=== PATIENT | female | born 1955 | race Caucasian/White ===

== ENCOUNTER → 2022-10-11 | Outpatient (CLI) | payer MEDICARE ==
--- NOTE | 2022-10-13 07:42 | US ---
EXAMINATION TYPE: US thyroid st tissue head/neck DATE OF EXAM: 10/11/2022 COMPARISON: NONE CLINICAL INDICATION: Female, 67 years old with history of E04.1 NONTOXIC SINGLE THYROID; known thyroi d nodules GLAND SIZE: Right Lobe: 4.7x1.6x1.8 cm Overall Parenchyma: homogenous Left Lobe: 4.5x1.7x1.5 cm Overall Parenchyma: homogeneous Isthmus Thickness: 0.4 cm NODULES RIGHT: # of nodules measured on right: 1 1. 2.6 X 2.1 x 1.4 cm, lower mid, solid or almost completely solid, hypoechoic nodule, which is wid er than tall, with smooth margins, without echogenic foci. Prior size: 4.0 x 2.6 x 3.9 cm LEFT: # of nodules measured on left: 1 1. 2.3 X 1.6 x 2.0 cm, lower mid, solid or almost completely solid, isoechoic nodule, which is wide r than tall, with smooth margins, without echogenic foci. Prior size: 1.5 x 1.1 x 1.1 cm several other subcentimeter areas also seen ISTHMUS: # of nodules measured in the isthmus: 0 Bilateral neck scanned, no evidence of lymphadenopathy. IMPRESSION: Previously sampled thyroid nodules are redemonstrated. Enlarging left thyroid nodule. Consider rebiop sy.
== END | disposition home or self-care (01) ==
LOC: RADUSWWP 15:16
PROVIDERS: ATTEND Family Medicine
DX: E04.2 Nontoxic multinodular goiter (principal)
CPT/HCPCS: 76536

== ENCOUNTER → 2023-01-13 | Outpatient (CLI) | payer MEDICARE ==
[2023-01-13 11:08] LABS: African American GFR (CKD) 62 (>60 ml/min/1.73 sqM); Blood Urea Nitrogen 22 mg/dL (7-17); Non-African American GFR(CKD) 54 (>60 ml/min/1.73 sqM)
--- NOTE | 2023-01-13 11:57 | CT ---
EXAMINATION TYPE: CT abdomen wo/w con DATE OF EXAM: 01/13/2023 COMPARISON: 10/29/2020 HISTORY: cyst on kidney CT DLP: 2569.2 mGycm CONTRAST: CT scan of the abdomen and pelvis is performed with Oral Contrast and with IV Contrast, patient injec teresa with 100 mL of Isovue 300. FINDINGS: LUNG BASES-: No visible nodule. No infiltrate. LIVER/GB: Gallbladder surgically absent. No space occupying hepatic lesion. Biliary tree is of nor mal caliber. PANCREAS: No inflammation. No distinct mass. SPLEEN: No splenic enlargement. No lesion seen. ADRENALS: Stable left adrenal nodule measuring 2.7 cm versus 2.7 cm previously likely reflects adenom a. KIDNEYS/BLADDER: No hydronephrosis. No nephrolithiasis. Exophytic cyst midpole right kidney measure s 6 cm. No solid renal mass identified of the right kidney or the left kidney. Additional cyst lower pole left kidney measuring 2.9 cm. Urinary bladder grossly unremarkable. BOWEL: Visualized bowel loops are grossly unremarkable. LYMPH NODES: No greater than 1cm abdominal or pelvic lymph nodes are appreciated. AORTA: No significant abnormality. OSSEOUS STRUCTURES: No significant abnormality is seen. OTHER: No significant additional abnormality is seen. IMPRESSION: 1. Bilateral simple renal cysts. No solid renal lesions detected. 2. Left adrenal adenoma.
== END | disposition home or self-care (01) ==
LOC: RADCTMAIN 10:16
PROVIDERS: ATTEND Family Medicine
DX: N28.1 Cyst of kidney, acquired (principal); D35.02 Benign neoplasm of left adrenal gland
CPT/HCPCS: 82565; 84520; 74170; 36415; Q9967

== ENCOUNTER → 2023-11-02 | Outpatient (CLI) | payer MEDICARE | END | disposition home or self-care (01) | LOC: LABPAT 12:40 | PROVIDERS: ATTEND Orthopaedic Surgery | DX: Z01.812 Encounter for preprocedural laboratory examination (principal); Z22.322 Carrier or suspected carrier of Methicillin resistant Staphylococcus aureus; M50.10 Cervical disc disorder with radiculopathy, unspecified cervical region | CPT/HCPCS: 86850; 86900; 86901; 87070 ==

== ENCOUNTER 2023-11-08 05:41 | Day surgery (SDC) | payer MEDICARE ==
[2023-11-04 10:01] VITALS: BMI 32.8
--- NOTE | 2023-11-07 17:20 | P.HPOR ---
History of Present Illness H&P Date: 11/02/23 .D:Date: 11/02/23 : 09:05am .T:Title: [facility] Age: 68 year Height: 5'11" Weight: 260 lbs BP:128/78 BMI: 36.26 kg/m2 Occupation: Retired VAS: 7 IMPRESSION: It was my pleasure to have seen and examinedPatricia.I reviewed the patient's clinical syndrome, physical findings, and imaging studies during the appointment today. It is my impression that the patient has a diagnosis of. 1. C4-5, C5-6, C6-7 herniated nucleus pulposus with spondylosis and stenosis 2. Bilateral upper extremity radiculopathy 3. Bilateral upper extremity weakness 4. Cervicalgia Spine Surgery Risk Review Ms. Pola Carrion is presenting for evaluation of neck and bilateral upper extremity pain, bilateral upper extremity numbness, tingling, and weakness. It was my pleasure to have seen and examined Ms. Pola Carrion. In our visit today we have had a chance to go over subjective complaints, physical examination findings and treatments including the natural course history without intervention and various interventional options. Imaging demonstrates: STUDIES FINDINGS XRAY Date: 08/29/2023 Location: [facility] Region: Cervical Views: AP/LAT/FLEX/EXT/OBL Images reviwed with patient -C4-7 Spondylosis. C4-5 Grade I spondylolisthesis -Severe disc collapse C5-7 -Osteophytosis C5-7 -Foraminal stenosis C5-7 -Flattened CL due to collapse -C0-1 and C1-2 stable. -No fracture or lesions CT Date: 08/05/2022 Location: [facility] Region:Cervical Contrast: N Images reviewed with pt. Similar findings to MRI below. -Severe spondylosis changes C4-7 -Severe central and b/l foraminal stenosis C4-7 due to HNP, begining OPLL and PLL thickening -Severe disc collapse C4-5, C5-6 and C6-7 along with C7-T1 -Flattened CL due to collapse -No fractures noted, no lesions. -Grade I spondylolisthesis, unstable C4-5 MRI Date: 06/09/2023 Location: [facility] Region:Cervical Contrast: N Images reviewed with pt. -Severe spondylosis changes C4-7 -Severe central and b/l foraminal stenosis C4-7 due to HNP, begining OPLL and PLL thickening -Severe disc collapse C4-5, C5-6 and C6-7 along with C7-T1 -Flattened CL due to collapse -No fractures noted, no lesions. -Grade I spondylolisthesis, unstable C4-5 On physical exam, Ms. Pola Carrion demonstrates: A burning, ache-like pain across the neck down into te bilateral upper extremities. She states these symptoms ave been ongoing for several months to a years, without any known injury or trauma to indicate an exact date of onset. She states her upper extremity pain is associated with numbness bilaterally. She notes progressive bilateral arm weakness. She states her symptoms worsen when ambulating the arms above the head or with any quick movements of the neck. She reports experiencing severe sleep disturbances related to her ongoing pain and associated symptoms. She states she only gets about 2 hours of sleep per night due to the severity of her current symptoms. She notes her symptoms have become debilitating. I have explained to the patient that as their condition progresses it will cause further neurological deficits and eventual paralysis. Based on the patients imaging, physical exam, and the rapid progression and disabling nature of their symptoms, at this time I recommend surgery in the form of a: C4-7 ACDF. I discussed the risk and benefits of this procedure at length with Ms. Pola Carrion. The patient agreed to considered pursuing the procedure abovementioned. Prior to surgery, she should follow up with her PCP (Cardio, ID, IM etc) for clearance. Questions were invited and answered, and the patient wishes to proceed as outlined below. Currently, I am recommendin.C4-7 ANTERIOR CERVICAL DISCECTOMY AND FUSION 2.Review of surgical risks and benefits as well as an educational packet on the proposed surgical procedure. Risks: All surgical procedures come with inherent risks, including those related to positioning, anesthesia, intraoperative findings, and postoperative complications. It is important to understand that surgery does not come with any guarantee of a successful outcome as complications and adverse events are always possible. The patient was given a handout in office today discussing the surgical procedure and risks associated with the intervention, both of which were discussed with the patient. These risks include but are not limited to the following: * Experiencing same, different or even worse symptoms in back, neck, arms, or legs compared to before surgery. Requiring further surgery or other forms of treatment presently or at some time in the future at same or other levels of the intended spine surgery. On an extreme but fortunately relatively rare basis severe complication such as blindness, stroke, heart attack, temporary and/or permanent nerve injury, paralysis, coma, or may occur, sometimes without known explanation. Surgical complications may include but are not limited to risk of infection, fluid accumulation in the surgical dissection site, including a seroma or hematoma, that requires additional surgery, wound drainage, bleeding, new numbness or weakness, vision changes/loss, spinal fluid leakage, non-healing and/or infected incision, headaches, difficulty or inability to swallow, hoarseness, hemopneumothorax, pneumothorax, impotence, retrograde ejaculation, vaginal dryness; injury to nerves, spinal cord, blood vessels, lymphatics or other vital organs (i.e., bowel injury, injury to the great vessels); heteroto pic bone formation; complications related to the hardware such as screws, rods, cages including misplaced hardware, device failure, instrumentation at the wrong spine level, hardware fracture/breakage, or hardware loosening; vertebral failure of the spinal column above or below the newly placed hardware; retained surgical instrumentations or devices and the need for further surgery. * Medical risks of the planned spine surgery include but are not limited to generalized Infections to the whole body or local areas outside of the surgical site (sepsis), heart attack, bleeding, anaphylaxis, meningitis, seizure, epilepsy, hearing loss, burn morales, laceration of the head or other areas of the body, bruising, hypersensitivity of the skin, bladder over distension; allergic reaction; shoulder injury related to positioning; fat, blood and air clots to other areas of the body like heart, lungs, brain; failure of internal organs such as lungs, kidneys, liver and excessive bleeding. If blood transfusions are necessary, note that transfusions may cause intolerance reactions such as anaphylaxis or other complex reactions. Despite best efforts, the results of spine surgery might not heal in terms of bone, soft tissues such as skin, fascia, ligaments, and joints. Additionally, in order to achieve best possible results, spine surgery may be carried out beyond the initially planned levels and involve decompression, fusion including insertion of hardware at levels other than the original intended area of surgical interest change some portions of the procedure in order to ensure the best possible outcomes. With spine surgery and spinal fusion, there are different off label uses of instrumentation (devices, implants and hardware) as well as biological substances (bone morphogenic proteins, demineralized bone matrix) as well as using extra bone from allograft sources (i.e. cadaver bone) or autograft (iliac crest bone, ribs, or the spine itself). The patient has been given information about these practices and their inherent risks and benefits. [facility] is an educational center that serves as a training facility for neurosurgical and orthopedic AUTHORIZATION MANAGER and Nursing students. Physician assistants are medically trained surgical providers who function in the outpatient, inpatient, and operating room setting under the direct supervision of the attending surgeon. [facility] has multiple operating rooms with single and overlapping rooms running daily. They currently function under the required guidelines as produced by the [facility] Finance Committee with regards to the overlapping rooms and will continue to comply with changes to this policy as they occur. The requirements include and are complied with as follows: (1) the critical portions of the overlapping rooms will not occur at the same time, (2) the attending physician will be physically present during the critical portions of the procedure and immediately available during the entire case, and (3) a back-up attending is designated should the primary attending not be immediately available. The patient has had a chance to review all the listed information, has been given print outs detailing this information, and has had all his/her questions answered to their satisfaction. It was my pleasure to have seen and examined Ms. Pola Carrion. In our visit today we have had a chance to go over my understanding of our patient's current condition, the natural course history without intervention and various interventional options. Questions were invited and answered, and the patient wishes to proceed as outlined above. I have seen and examined the patient for 25 minutes and we have spent more than 50% of the time in repeat and detailed counseling about the patient's condition, its natural course history with out and as much as can be predicted with surgery and re-review of various surgical treatment options. In conclusion, Ms. Pola Carrion requested we proceed with the above suggested surgery and are willing to accept risks and limitations of the suggested surgery as nature of the disease process and our best attempts at treatment for the condition. FOLLOW UP: Post Procedure PATIENT EDUCATION: Medications Reviewed: YES In our visit today Ms. Pola Carrion and I have had a chance to go over my understanding of the patient's current condition, the natural course history without intervention and various interventional options. Questions were invited and answered, and the patient wishes to proceed as outlined above. I will be sure to keep you updated after Ms. Pola Carrion returns here for further follow-up. Thank you again for your referral. Please do not hesitate to contact me if you have any further questions. Signed and authenticated by: Luc Barriga [facility] [address] [facility], [address] [address] . This message is confidential, intended only for the named recipient(s) and may contain information that is privileged or exempt from disclosure under applica ble law. If you are not the intended recipient(s), you are notified that the dissemination, distribution or copying of this information is prohibited. If you received this message in error, please notify the sender then delete this message. Past Medical History Past Medical History: COPD, Diabetes Mellitus, Fibromyalgia, Hypertension, Osteoarthritis (OA), Thyroid Disorder Additional Past Medical History / Comment(s): Beginnings of Rheumatoid Arthritis. Thyroid nodules. No issues with COPD, quit smoking 27 yrs ago. History of Any Multi-Drug Resistant Organisms: None Reported Past Surgical History: Cholecystectomy, Orthopedic Surgery, Tubal Ligation Additional Past Surgical History / Comment(s): Attempted tubal ligation reversal, colonoscopy, thyroid biopsy, left foot surgery. Past Anesthesia/Blood Transfusion Reactions: No Reported Reaction Additional Past Anesthesia/Blood Transfusion Reaction / Comment(s): Pt has never received blood. Smoking Status: Former smoker - Past Family History Sister(s) Family Medical History: Cancer Additional Family Medical History / Comment(s): Kidney cancer in both kidneys, thyroid cancer. Another sister had breast cancer. Father Family Medical History: Diabetes Mellitus Additional Family Medical History / Comment(s): Heart problems, . Mother Additional Family Medical History / Comment(s): Mother of aortic aneurysm rupture at age 55 yrs. Medications and Allergies Home Medications Medication Instructions Recorded Confirmed Type Lisinopril-Hctz 20-25 mg 1 tab PO HS 01/15/15 11/04/23 History [Zestoretic 20-25] Aspirin [Adult Low Dose Aspirin EC] 81 mg PO DAILY 11/04/23 11/04/23 History Biotin 10 Mg 20 mg PO DAILY 11/04/23 11/04/23 History Gabapentin 600 mg PO BID 11/04/23 11/04/23 History Insulin NPH Hum/Reg Insulin Hm 0 unit SQ BID PRN MDD To scale 11/04/23 11/04/23 History [NovoLIN 70-30 100 Unit/ml Vial] Otc Allergy Pill 1 tab PO DAILY PRN 11/04/23 11/04/23 History Tirzepatide [Mounjaro] 7.5 mg SQ FR 11/04/23 11/04/23 History Allergies Allergy/AdvReac Type Severity Reaction Status Date / Time No Known Allergies Allergy Verified 11/04/23 09:31 Physical Examination Osteopathic Statement: *. No significant issues noted on an osteopathic structural exam other than those noted in the History and Physical/Consult. Assessment and Plan (1) Herniated nucleus pulposus, C4-5 Status: Acute Code(s): M50.221 - OTHER CERVICAL DISC DISPLACEMENT AT C4-C5 LEVEL SNOMED Code(s): 48590736 (2) Herniated nucleus pulposus, C5-6 Status: Acute Code(s): M50.222 - OTHER CERVICAL DISC DISPLACEMENT AT C5-C6 LEVEL SNOMED Code(s): 24192951 (3) Herniated nucleus pulposus, C6-7 Status: Acute Code(s): M50.223 - OTHER CERVICAL DISC DISPLACEMENT AT C6-C7 LEVEL SNOMED Code(s): 00275431 (4) Cervical spondylosis with myelopathy and radiculopathy Status: Acute Code(s): M47.12 - OTHER SPONDYLOSIS WITH MYELOPATHY, CERVICAL RE GION; M47.22 - OTHER SPONDYLOSIS WITH RADICULOPATHY, CERVICAL REGION SNOMED Code(s): 433270725 (5) Cervical stenosis of spinal canal Status: Acute Code(s): M48.02 - SPINAL STENOSIS, CERVICAL REGION SNOMED Code(s): 65134680
[~2023-11-08 05:41] MED LIST: ACETAMINOPHEN TAB 500 MG TAB PO PRN; GABAPENTIN 300 MG CAP PO PRN; TRANEXAMIC 1,000 MG/100ML-NACL 1,000 MG in SALINE 1 100ML.BAG IVPB PRN
[2023-11-08 06:57] LABS: Glucose,Whole Blood 110 mg/dL (70-110)
[2023-11-08] MEDS ORDERED: MIDAZOLAM 2 MG/2 ML VIAL IV PRN (07:00)
[2023-11-08] MEDS: LACTATED RINGERS 1,000 ML IV SCH (07:02)
[2023-11-08] MEDS: IV FLUID CONTINUATION 1,000 ML IV ONE ×3 (07:04→14:17)
[2023-11-08] MEDS: ONDANSETRON 4 MG/2 ML VIAL IVP PRN (07:07)
[2023-11-08] MEDS ORDERED: PHENYLEPHRINE-0.9% NACL SYG 1,000 MCG/10 ML SYRINGE ONE (07:28)
[2023-11-08] MEDS ORDERED: LIDOCAINE 1% INJ 10MG/ML (20 ML MDV) ONE (07:28)
[2023-11-08] MEDS ORDERED: NEOSTIGMINE 1 MG/ML 10 ML VIAL ONE (07:28)
[2023-11-08] MEDS ORDERED: ROCURONIUM 10 MG/ML (5 ML VIAL) IV ONE (07:28)
[2023-11-08] MEDS ORDERED: PHENYLEPHRINE 10 MG/ML VIAL ONE (07:28)
[2023-11-08] MEDS ORDERED: PROPOFOL 10 MG/ML 20 ML VIAL IV ONE (07:28)
[2023-11-08] MEDS ORDERED: MIDAZOLAM 2 MG/2 ML VIAL ONE (07:28)
[2023-11-08] MEDS ORDERED: HYDROmorphone (PF) 1 MG/ML ONE (07:28)
[2023-11-08] MEDS ORDERED: fentaNYL (PF) 50 MCG/ML 2 ML AMP ONE (07:28)
[2023-11-08] MEDS ORDERED: GLYCOPYRROLATE 0.2 MG/ML 2 ML VIAL ONE (07:28)
[2023-11-08] MEDS ORDERED: SUCCINYLCHOLINE CHLORIDE 200 MG/10 ML VIAL IV ONE (07:28)
[2023-11-08] MEDS ORDERED: KETAMINE HCL IN 0.9 % NACL 50 MG/5 ML SYRINGE ONE (07:28)
[2023-11-08] MEDS ORDERED: TRANEXAMIC 1,000 MG/100ML-NACL PREMIX BAG ONE (07:28)
[2023-11-08] MEDS: THROMBIN (BOVINE) 5,000 UNIT VIAL TOPICAL ONE (09:00)
--- NOTE | 2023-11-08 10:39 | P.OP ---
Date of Procedure: 11/08/23 Preoperative Diagnosis: Current Active Problems Herniated nucleus pulposus, C4-5 (Acute) Herniated nucleus pulposus, C5-6 (Acute) Herniated nucleus pulposus, C6-7 (Acute) Cervical spondylosis with myelopathy and radiculopathy (Acute) Cervical stenosis of spinal canal (Acute) Upper extremity weakness (Acute) Diabetes (Chronic) Postoperative Diagnosis: Current Active Problems Herniated nucleus pulposus, C4-5 (Acute) Herniated nucleus pulposus, C5-6 (Acute) Herniated nucleus pulposus, C6-7 (Acute) Cervical spondylosis with myelopathy and radiculopathy (Acute) Cervical stenosis of spinal canal (Acute) Upper extremity weakness (Acute) Diabetes (Chronic) Procedure(s) Performed: -C4-5 ANTERIOR CERVICAL ARTHRODESIS - C5-6 ANTERIOR CERVICAL ARTHRODESIS -C6-7 ANTERIOR CERVICAL ARTHRODESIS -APPLICATION ANTERIOR INSTRUMENTATION, PLATE SCREWS 4 SEGMENT -INSERTION OF BIOMECHANICAL DEVICE, CAGES, C4-5, C5-6, C6-7 USE OF IONM USE OF IO MICROSCOPE Implants: -GURDEEP CASCADIA CAGES 8MM, 9MM, 9,, 7 DEG, LARGE -GURDEEP OZARK PLATE AND SCREWS, 16MM, 66MM -MAGNATOS, AUTOGRAFT Anesthesia: GETA Surgeon: Luc Lr Profile Shaper Operator #1: Polly Barton (WAS PRESENT AND ASSISTED WITH ALL ASPECTS OF THE CASE FROM POSITION TO DRESSING PLACEMENT) Estimated Blood Loss (ml): 50 IV fluids (ml): 1,200 Urine output (ml): 550 Pathology: none sent Condition: stable Disposition: PACU Indications for Procedure: Ms. Pola Carrion is presenting for evaluation of neck and bilateral upper extremity pain, bilateral upper extremity numbness, tingling, and weakness. It was my pleasure to have seen and examined Ms. Pola Carrion. In our visit today we have had a chance to go over subjective complaints, physical examination findings and treatments including the natural course history without intervention and various interventional options. Imaging demonstrates: STUDIES FINDINGS XRAY Date: 08/29/2023 Location: [facility] Region: Cervical Views: AP/LAT/FLEX/EXT/OBL Images reviwed with patient -C4-7 Spondylosis. C4-5 Grade I spondylolisthesis -Severe disc collapse C5-7 -Osteophytosis C5-7 -Foraminal stenosis C5-7 -Flattened CL due to collapse -C0-1 and C1-2 stable. -No fracture or lesions CT Date: 08/05/2022 Location: [facility] Region:Cervical Contrast: N Images reviewed with pt. Similar findings to MRI below. -Severe spondylosis changes C4-7 -Severe central and b/l foraminal stenosis C4-7 due to HNP, begining OPLL and PLL thickening -Severe disc collapse C4-5, C5-6 and C6-7 along with C7-T1 -Flattened CL due to collapse -No fractures noted, no lesions. -Grade I spondylolisthesis, unstable C4-5 MRI Date: 06/09/2023 Location: [facility] Region:Cervical Contrast: N Images reviewed with pt. -Severe spondylosis changes C4-7 -Severe central and b/l foraminal stenosis C4-7 due to HNP, begining OPLL and PLL thickening -Severe disc collapse C4-5, C5-6 and C6-7 along with C7-T1 -Flattened CL due to collapse -No fractures noted, no lesions. -Grade I spondylolisthesis, unstable C4-5 On physical exam, Ms. Pola Carrion demonstrates: A burning, ache-like pain across the neck down into te bilateral upper extremities. She states these symptoms ave been ongoing for several months to a years, without any known injury or trauma to indicate an exact date of onset. She states her upper extremity pain is associated with numbness bilaterally. She notes progressive bilateral arm weakness. She states her symptoms worsen when ambulating the arms above the head or with any quick movements of the neck. She reports experiencing severe sleep disturbances related to her ongoing pain and associated symptoms. She states she only gets about 2 hours of sleep per night due to the severity of her current symptoms. She notes her symptoms have become debilitating. I have explained to the patient that as their condition progresses it will cause further neurological deficits and eventual paralysis. Based on the patients [place] ging, physical exam, and the rapid progression and disabling nature of their symptoms, at this time I recommend surgery in the form of a: C4-7 ACDF. I discussed the risk and benefits of this procedure at length with Ms. Pola Carrion. The patient agreed to considered pursuing the procedure abovementioned. Prior to surgery, she should follow up with her PCP (Cardio, ID, IM etc) for clearance. Questions were invited and answered, and the patient wishes to proceed as outlined below. Currently, I am recommendin.C4-7 ANTERIOR CERVICAL DISCECTOMY AND FUSION Description of Procedure: C4-7 ACDF plate screws The patient was seen and examined in the preoperative area. All preoperative protocols were followed. Informed consent was obtained, risks and benefits of the procedure were discussed at length. Risks including bleeding infection damage to the surrounding tissue and risk of reoperation were discussed with the patient. Risk of anesthesia up to and including was discussed with the patient. These are outlined in the risk review. They were willing to accept these risks and all the risks of surgery. The patient was given a weight-based dose of antibiotics in the form of 2 g Ancef. The patient was seen and evaluated by the anesthesia team who deemed them fit for surgery. The site was marked, the patient was willing to proceed with the procedure. The patient was transferred to the operative suite by the Department of anesthesia. They were then drifted off to sleep by the department anesthesia and GETA was performed. The patient tolerated this well. Whitney catheter was placed by nursing staff, a-traumatically. Once confirmation of lines and ventilation the patient was transferred to a Supine Holden table very carefully. All bony prominences including wrists, elbows, axilla, chest, hips, and thighs, and feet were padded very well. Special attention was paid to the genitalia, and these were padded accordingly. SCDs were placed on bilateral lower extremities and were connected. Arms were well padded and placed at their side thumbs up. Once in position, again we confirmed good ventilation capabilities and that lines were running appropriately. The patients Cervical spine was then exposed. 1010s were placed outlining the incision site. Standard alcohol was used to clean the incision site and allowed to dry. C-arm was used to bio-mari the patient and confirm level for incision which was marked with a skin marker. Operative briefing was performed with all teams and everyone in agreement to proceed. The patient was then prepped and draped in a normal sterile fashion. Timeout was then performed, and all parties agreed with the procedure to be performed. Transverse skin incision was then made on the right side of the patient's neck 3 cm and dissection taken down to the platysma which was split transversely. Sub platysma flap was made, and interval identified between SCM and medial structures. Omohyoid was visualized and protected. Blunt dissection taken down to the anterior cervical fascia which was identified. Blunt probe was then placed and lateral image taken which confirmed levels for operation. These levels were then marked with a bovi. Subperiosteal dissection of the longissimus muscles were then done over these levels identifying uncovertebral joints bilaterally. Retractor was then placed deep to these muscles and held in place with a bed arm. Microscope was then brought in for visualization. Colrain pins were placed into C6 and C7 and gentle distraction taken out over the levels. Helen rongeur used to remove disc material. Operating microscope brought in for visualization. Complete discectomy performed at this level with curette, rongure and pituitary. High speed shaheen used to remove osteophytes anteriorly and posteriorly until PLL was identified. 6-0 up curette then used to identify the canal and ressect the PLL. 2-0 and 3-0 Kerrison used then to remove PLL and disc herniation and performed b/l foraminotomies. Once good decompression was accomplished, meticulous hemostasis was performed. Sizers were then placed under lateral fluoroscopy until the desired height and lordosis. Cage was then selected, packed with autograft and allograft and placed under lateral imaging. Once in good position it was tested and stable. Motors run before and after cage placement were stable. The wound was irrigated, and autograft placed lateral to the cage anteriorly for fusion. Colrain pin was then removed from C7 and placed into C5 and bone wax placed in their void. Gentle distraction taken out over C5-6 now. Complete discectomy done at C5-6 as described including decompression, b/l foraminotomies and PLL resection. Burring of endplates was minimal, osteophytes removed as described. Spacers were then sized and placed under lateral imaging. Cage selected, packed with graft and placed under lateral images. Once in position, meticulous hemostasis performed, and motors remained stable before and after cage placement. AP image confirmed good placement of cages. Wound was irrigated. Colrain pin was then removed from C6 and placed into C4. At C4-5 now, gentle distraction is taken out over the levels. Helen rongeur used to remove disc material.. Complete discectomy performed at this level with curette, rongure and pituitary. High speed shaheen used to remove osteophytes anteriorly and posteriorly until PLL was identified. 6-0 up curette then used to identify the canal and ressect the PLL. 2-0 and 3-0 Kerrison used then to remove PLL and disc herniation and performed b/l foraminotomies. Once good decompression was accomplished, meticulous hemostasis was performed. Sizers were then placed under lateral fluoroscopy until the desired height and lordosis. Cage was then selected, packed with autograft and allograft and placed under lateral imaging. Once in good position it was tested and stable. Motors run before and after cage placement were stable. The wound was irrigated, and autograft placed lateral to the cage anteriorly for fusion. A separate, non-integrated plate was then selected and sized under lateral image. The plate was then placed with screws. Fixed screws drilled into C7 b/l and screws placed. Then into C6 C5 and C4 bilaterally. All locking mechanisms were set, and all screws had good purchase. Final AP and lateral images taken confirmed good placement of hardware and good reduction and congregation of height. The wound was then irrigated copiously with NSS. Surgicel placed deep in the wound. A deep drain placed out a separate incision and sewed into place. Layered closure then performed with 3-0 Vicryl in the platysma and subQ tissue. 4-0 stratafix was then placed in the subcuticular skin. The wound was then cleaned, dried and skin glue placed. Once glue dried telfa, 4x4, and tegaderms were placed for dressing. Wound edges approximated well. The patient was then transferred back to their hospital bed a-traumatically. The drain continued to hold suction. They were placed in a soft collar. They were then awakened by the department of anesthesia having tolerated the procedure well without complications.
[2023-11-08] MEDS ORDERED: HYDROcodone/APAP 5-325MG 1 EACH TAB PO PRN (10:40)
[2023-11-08] MEDS ORDERED: ONDANSETRON 4 MG/2 ML VIAL IVP PRN (10:40)
[2023-11-08] MEDS ORDERED: HYDROmorphone 0.5 MG/0.5 ML SYRINGE IVP PRN (10:40)
[2023-11-08] MEDS ORDERED: MAGNESIUM HYDROXIDE 2,400 MG/30 ML CUP PO PRN (10:40)
--- NOTE | 2023-11-08 10:43 | FL ---
EXAMINATION TYPE: FL guidance operating room, XR cervical spine limited Intraoperative/procedural flu oroscopic services were provided. Total fluoroscopy time is 36.3 seconds with a total of 4 submitted images to PACS. Please see the operative/procedural note for further details. DAP: 1.5844 Gycm2
[2023-11-08] MEDS ORDERED: CYCLOBENZAPRINE 5 MG TAB PO PRN (10:46)
[2023-11-08] MEDS: HYDROmorphone 0.5 MG/0.5 ML SYRINGE IVP PRN (11:39)
[2023-11-08 11:42] LABS: Glucose,Whole Blood 149 mg/dL (70-110)
--- NOTE | 2023-11-08 16:24 | CT ---
EXAMINATION TYPE: CT cervical spine wo con DATE OF EXAM: 11/08/2023 COMPARISON: None HISTORY: 68-year-old female post-op C4-C7 ACDF TECHNIQUE: Contiguous axial scanning of the cervical spine without IV contrast. Coronal and sagittal reconstructions performed. CT DLP: 477.1 mGycm Automated exposure control for dose reduction was used. FINDINGS: No craniocervical junction abnormality or predental space widening. Change of the C1 dens articulation. Postsurgical change with edema and air along the anterior neck re lated to recent surgery. Surgical drain is in place at the C5-C6 level. Placement of ACDF C4-C7 levels. Alignment is maintained. Moderate degenerative disc disease below the fusion at C7-T1 and mild at T1-T2. Hyperostotic changes at the facets and uncovertebral joints. This contributes to moderate left neurof oraminal stenosis at C5-C6 and mild on the right at C6-C7. Alignment is maintained. IMPRESSION: UNCOMPLICATED C4-C7 ACDF WITH RECENT POSTOPERATIVE CHANGES.
[2023-11-08 16:57] LABS: Glucose,Whole Blood 200 mg/dL (70-110)
[2023-11-08] MEDS ORDERED: DEXTROSE 50% SYRINGE 50 ML IVP PRN ×2 (17:20)
[2023-11-08] MEDS: INSULIN ASPART (NovoLOG) 100 UNIT/ML VIAL SQ SCH (17:36)
[2023-11-08] MEDS: HYDROcodone/APAP 10-325MG 1 EACH TAB PO PRN (18:25)
[2023-11-08 21:15] LABS: Glucose,Whole Blood 140 mg/dL (70-110)
[2023-11-08] MEDS: HYDROmorphone 1 MG/ML 1 ML SYRINGE IVP PRN (21:36)
[2023-11-08] MEDS: GABAPENTIN 300 MG CAP PO SCH (21:36)
[2023-11-09 05:35] LABS: Glucose,Whole Blood 151 mg/dL (70-110)
[2023-11-09 07:28] LABS: Basophils % (A) 1 %; Eosinophils # (A) 0.2 k/uL (0-0.7); Eosinophils % (A) 2 %; HGB 11.4 gm/dL (11.4-16.0); Lymphocytes # (A) 1.3 k/uL (1.0-4.8); Lymphocytes % (A) 16 %; MCH 31.5 pg (25.0-35.0); MCHC 32.6 g/dL (31.0-37.0); MCV 96.6 fL (80.0-100.0); Mean Platelet Volume 8.1; Monocytes # (A) 0.6 k/uL (0-1.0); Monocytes % (A) 8 %; Neutrophils # (A) 5.8 k/uL (1.3-7.7); Neutrophils % (A) 72 %; Platelet Count 164 k/uL (150-450); RBC 3.62 m/uL (3.80-5.40); RDW 13.2 % (11.5-15.5); WBC 8.2 k/uL (3.8-10.6)
[2023-11-09 07:41] LABS: African American GFR (CKD) 75 (>60 ml/min/1.73 sqM); Anion Gap 8 mmol/L; Blood Urea Nitrogen 25 mg/dL (7-17); Calcium 8.7 mg/dL (8.4-10.2); Carbon Dioxide 22 mmol/L (22-30); Chloride 101 mmol/L (98-107); Glucose 157 mg/dL (74-99); Non-African American GFR(CKD) 65 (>60 ml/min/1.73 sqM); Potassium 3.9 mmol/L (3.5-5.1); Sodium 131 mmol/L (137-145)
[2023-11-09] MEDS: SENNOSIDES-DOCUSATE SODIUM 1 EACH TAB PO SCH (08:15)
[2023-11-09 08:39] VITALS: BP 105/53; PULSE 88; RESP 16; TEMP 101
--- NOTE | 2023-11-09 11:34 | P.PN ---
Subjective Progress Note Date: 11/09/23 Principal diagnosis: 1. C4-5, C5-6, C6-7 herniated nucleus pulposus with spondylosis and stenosis 2. Bilateral upper extremity radiculopathy 3. Bilateral upper extremity weakness 4. Cervicalgia Patient seen and examined this morning. Patient is sitting up in the chair at bedside. She does report some cervical tenderness, although this is managed on current regimen. Patient denies any difficulty with swallowing, tolerating breakfast well. Surgical incision to the anterior cervical spine, edges are well-approximated with glue intact. PAM drain has been removed this morning and new dressing applied. Hard cervical collar is intact. Patient does report that she is ready to be discharged home. Informed patient that she needs to work with physical therapy this morning. Patient verbalizes understanding. Patient is cleared from orthopedic standpoint for discharge. Discharge instructions have been discussed and placed in discharge plan. Objective - Vital Signs Vital signs: Vital Signs Temp 101 F H 11/09/23 07:51 Pulse 88 11/09/23 07:51 Resp 16 11/09/23 07:51 BP 105/53 11/09/23 07:51 Pulse Ox 92 L 11/09/23 07:51 FiO2 Intake & Output 11/08/23 11/09/23 11/09/23 18:59 06:59 18:59 Intake Total 2250 Output Total 1400 1355 Balance 850 -1355 Weight 107 kg Intake: IV 2250 Output: Drainage 30 Right Neck 30 Urine 1350 1325 Estimated Blood Loss 50 Other: Voiding Method Indwelling Catheter - Exam Physical Examination General: The patient is awake and alert, in no acute distress Skin: Skin is warm and dry with no obvious rashes or lesions. surgical incision to the anterior cervical spine, edges are well-approximated with glue intact. PAM drain has been removed and new surgical dressing applied. Hard cervical collar is intact. Eye: Pupils are equal, round and reactive to light, extra-ocular movements are intact; there is normal conjunctiva bilaterally. Neck: The neck is supple, there is mild tenderness and limited ROM due to hard cervical collar and surgical procedure Cardiovascular: There is a regular rate and rhythm. No murmur, rub or gallop is appreciated. Respiratory: Respirations are non-labored, breath sounds are equal. Gastrointestinal: Soft, non-distended, non-tender abdomen. Back: There is no tenderness to palpation in the midline, paralumbar, parathoracic or buttocks region. There is no obvious deformity . Musculoskeletal: ROM limited secondary to pain and stiffness from surgical procedure. Right: Shoulder abduction 5/5, elbow flexors 5/5, wrist dorsiflexors 5/5. finger abductor 5/5, architectural job captain 5/5, hip flexor 5/5, knee flexor 5/5, ankle dorsiflexor 5/5, ankle plantarflexion 5/5 and extensor hallucis 5/5. Left: Shoulder abduction 5/5, elbow flexors 5/5, wrist dorsiflexors 5/5. finger abductor 5/5, architectural job captain 5/5, hip flexor 4-/5, knee flexor 4/5, ankle dorsiflexor 5/5, ankle plantarflexion 5/5 and extensor hallucis 5/5. Neurological: CN 2-12 intact. There are no obvious motor or sensory deficits. Movement and coordination equal and intact. Sensory exam to light touch intact C5-T1 and intact from L2-S1. Reflexes 2/4 in bilateral upper and lower extremities. Negative Hoffmans, babinski, and clonus signs. Psychiatric: Cooperative, appropriate mood & affect, normal judgment. - Labs CBC & Chem 7: 11/09/23 06:17 11/09/23 06:17 Labs: Abnormal Lab Results - Last 24 Hours (Table) 11/08/23 11/08/23 11/08/23 Range/Units 11:41 16:55 21:13 RBC (3.80-5.40) m/uL Sodium (137-145) mmol/L BUN (7-17) mg/dL Glucose (74-99) mg/dL POC Glucose (mg/dL) 149 H 200 H 140 H (70-110) mg/dL 11/09/23 11/09/23 11/09/23 Range/Units 05:33 06:17 06:17 RBC 3.62 L (3.80-5.40) m/uL Sodium 131 L (137-145) mmol/L BUN 25 H (7-17) mg/dL Glucose 157 H (74-99) mg/dL POC Glucose (mg/dL) 151 H (70-110) mg/dL Assessment and Plan Assessment: Postop day 1: C4-C7 ACDF Plan: -Appreciate programmer analyst consultant and team management. -Activity: Ambulate QID, OOB all meals, up and about, limit lifting bending twisting to less than 5 lbs. Use walker or cane if needed for stability. -Daily PT/OT, increase ambulation strength and balance. - Hard cervical collar on at all times, may remove for showers. -Pain control: Adequate at this time -Meds: reviewed -GI ppx: senna, Miralax -DVT PPX: TEDS -Hygiene: Shower today. Maintain dressing clean and dry. -Encourage IS 10x/hr -Dispo: Discharge home later today *I reviewed and discussed this case with my attending Dr. Lr, whom has reviewed this chart and films and is in agreement with assessment and plan of care as outlined above. I have personally seen and examined the patient, performed the documentation and the assessment and plan as written. Number of minutes spent on the visit: 30m.
[2023-11-09 11:37] LABS: Glucose,Whole Blood 215 mg/dL (70-110)
--- NOTE | 2023-11-09 11:39 | P.DS ---
Providers Date of admission: Hospital Course: The patient was evaluated preoperatively and found to have the diagnosis of Cervical spondylosis with stenosis. They underwent appropriate preoperative care and were willing to undergo the intended procedure. They underwent a successful C4-C7 ACDF, were recovered appropriately and sent to the floor. While on the floor they worked with physical therapy, occupational therapy and nursing to enhance their recovery experience. Their pain was well controlled through their stay and they were started on appropriate medications, DVT ppx modalities, activity and dietary needs. Daily labs were monitored closely, and transfusions were only used when necessary. Medicine as well as other consulting services have made their input and have helped with our team approach and multidisciplinary care. PT milestones have been met and passed and they have made the recommendation of Home for this patient and treating providers agree with this care path. The patient will be discharged home with appropriate medications, instructions and follow-up information and in stable condition. Expected date of discharge: 11/09/23 Attending physician: Luc Lr DO Consults: 11/08/23 10:44 Consult Physician Routine Consulting Provider: Nilay Ferro Reason/Comments: Medical Management Do you want consulting provider notified?: Yes Primary care physician: Nilay Ferro Plan - Discharge Summary Discharge Rx Participant: No New Discharge Prescriptions: New cefaDROXiL [Duricef] 500 mg PO Q12HR #10 cap Sennosides/Docusate Sodium [Senna Plus 8.6-50 mg Tablet] 1 each PO DAILY PRN #20 tab PRN Reason: Constipation Cyclobenzaprine [Flexeril] 5 mg PO TID PRN #20 tablet PRN Reason: Muscle Spasm Gabapentin 600 mg PO BID #60 tab HYDROcodone/APAP 10-325MG [[place] 10-325] 1 tab PO Q4-6H PRN #42 tab PRN Reason: Pain No Action Lisinopril-Hctz 20-25 mg [Zestoretic 20-25] 1 tab PO HS Gabapentin 600 mg PO BID Tirzepatide [Mounjaro] 7.5 mg SQ FR Otc Allergy Pill 1 tab PO DAILY PRN PRN Reason: Allergic Reaction Insulin NPH Hum/Reg Insulin Hm [NovoLIN 70-30 100 Unit/ml Vial] 0 unit SQ BID PRN MDD To scale PRN Reason: Blood Sugar - High Biotin 10 Mg 20 mg PO DAILY Aspirin [Adult Low Dose Aspirin EC] 81 mg PO DAILY Discharge Medication List Lisinopril-Hctz 20-25 mg [Zestoretic 20-25] 1 tab PO HS 01/15/15 [History] Aspirin [Adult Low Dose Aspirin EC] 81 mg PO DAILY 11/04/23 [History] Biotin 10 Mg 20 mg PO DAILY 11/04/23 [History] Gabapentin 600 mg PO BID 11/04/23 [History] Insulin NPH Hum/Reg Insulin Hm [NovoLIN 70-30 100 Unit/ml Vial] 0 unit SQ BID PRN MDD To scale 11/04/23 [History] Otc Allergy Pill 1 tab PO DAILY PRN 11/04/23 [History] Tirzepatide [Mounjaro] 7.5 mg SQ FR 11/04/23 [History] Cyclobenzaprine [Flexeril] 5 mg PO TID PRN #20 tablet 11/09/23 [Rx] Gabapentin 600 mg PO BID #60 tab 11/09/23 [Rx] HYDROcodone/APAP 10-325MG [[place] 10-325] 1 tab PO Q4-6H PRN #42 tab 11/09/23 [Rx] Sennosides/Docusate Sodium [Senna Plus 8.6-50 mg Tablet] 1 each PO DAILY PRN #20 tab 11/09/23 [Rx] cefaDROXiL [Duricef] 500 mg PO Q12HR #10 cap 11/09/23 [Rx] Follow up Appointment(s)/Referral(s): Nilay Ferro DO [Primary Care Provider] - 11/15/23 1:40 pm Luc Lr DO [Doctor of Osteopathic Medicine] - 11/23/23 2:15 pm Activity/Diet/Wound Care/Special Instructions: Spine Discharge and Recovery Instructions Date of Surgery: 11/08/23 Diagnosis: Cervical spondylosis Procedure: C4-C7 ACDF Medications: See medication list All medication refills should be obtained through your primary care doctor or your clinic spine surgeon. Please discuss prescription refills at your follow up appointment. Do not call the hospital for medication refills. Activity: Encourage ambulation with assist of walker, Up and about 6-8x daily PT/OT daily work on balance, strength and mobility Up in chair with all meals Shower daily Brace: Use brace when up and about, do not wear in bed or shower Dressing: Leave your dressing in place for a total of 3 days post operatively. Then you may remove your dressing and leave open to air. Keep the area clean and if not able to keep area clean, then cover with sterile gauze and tape. Showering: You may shower 3 days after your procedure allowing soap and water to run over incision. Do not scrub. Do not soak. Blot dry. Follow up: Please confirm a follow up appointment with your surgeon 2 weeks post operatively. Please make an appointment to follow up with your PCP in 1-2 weeks after surgery for evaluation `3 phase, 3-week plan POST OP WEEKS 1-3 1. Lifting/carrying/pushing/pulling limited to less than 5 pounds. 2. Do not sit for longer than 15 minutes at one time. Get up and walk around. Prolonged sitting is NOT advised. If you lay down, see if you can tolerate laying down on you front (belly side) 3. Walk for periods of 15 minutes = 1 mile but no longer; do it multiple times times each day. 4. Ice your low back after activity. POST OP WEEKS 3-6 1. Lifting limited to less than 20 pounds. 2. Do not sit for longer than 30 minutes at a time. Frequently change positions. Use a sit-to stand workstation or take frequent breaks from sitting if you have returned to work. 3. Walk for 30 minutes each day. If possible, do these three or more times a day POST OP WEEKS 6+ At your 6-week appointment we will give you a physical therapy referral to focus on a core stabilization and strengthening program. You should also work on leg & buttock strengthening, hamstring & quadriceps stretching, and continue a low impact aerobic activity program such as swimming, walking, or riding a stationary bicycle. During the initial 6 weeks after your surgery, you are at the highest risk of re-injuring your spine. You should generally avoid BLTs (bending, lifting and twisting combination motions) and follow the above guidelines to reduce the chance of reinjury. You can anticipate post op appointments in our office at approximately 3 weeks and 6 weeks after your surgery. INCISION CARE: If your incision is not draining you do NOT need to cover it with a dressing. Keep your incision clean, dry and intact. In most cases, we apply skin glue, kimber or sutures to the incision at the time of surgery. This will be like a crust or have the appearance of a scab and will fall off in time on its own. The stitches or kimber need to be removed at 3 weeks post op appointment. You may begin to shower 3 days after surgery (this allows the glue to link well). However, please avoid scrubbing the incision site or peeling off any of the skin glue. This will ensure optimal healing of your incision. Also, during this time avoid soaking the incision area in water - this includes swimming pools, hot tubs or baths. No ointments, lotions or oils on the incision until your surgeon allows. Leave kimber, sutures or glue in place. Neurological dysfunction that comes on suddenly can also be a sign of a stroke. Below some common symptoms of a stroke are listed: B - balance difficulty such as sudden onset walking or leaning to one side - NEW E - eye problem such as sudden double vision or trouble seeing on one side - NEW F - Facial weakness or numbness on one side - NEW A - Arm or leg weakness or numbness on one side - NEW S - Slurred speech or difficulty with word finding - NEW T - Time is BRAIN! Call 911 as soon as you recognize these symptoms Diet: Consume a regular diet rich in vegetables and lean protein such as chicken or fish. You should consume in a ratio of approximately 20% fats|40% carbohydrates|40%protein. Vegetables, sweet potatoes, brown rice or quinoa are examples of good carbohydrates. Chips, white bread, cookies and sweets/sugar are examples of bad carbohydrates. Limit your bad carbs, go wild with good carbs. 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 (1) Get Active. Physical activity can help people lose weight, control high blood pressure and cholesterol, feel emotionally better, and sleep better. (2) Control Cholesterol. Avoid a diet high in saturated fat, trans fat, & cholesterol. Limit whole milk & cream, ice cream, butter, egg yolks, processed meats (like sausage and hot dogs), and fatty meats. Choose healthy foods that are low in saturated fat, trans fat and cholesterol which include: Fruits and vegetables, fiber rich grain products (like whole grain pasta and brown rice), lean meat such as chicken, fish, nuts, seeds, and legumes. (3) Eat Better. Eat small portions. Shop at the grocery with a list and do not stray from it. Tips for a healthy diet include: Limit sodium intake to less than 1500mg daily, avoid prepackaged, processed, and fast foods, choose a diet rich in fruits, vegetables, and whole grain, high fiber foods, and limit saturated & cholesterol in your diet. (4) Manage Blood Pressure. If you have high blood pressure, you should have a c uff at home so that you can check your blood pressure regularly. Be sure you have a good cuff. An arm one is generally better than a wrist one. Bring the cuff to a doctor's appointment to validate that the measurements that your cuff are taking are accurate. Take your blood pressure twice daily when you are sitting down and relaxing. Record the numbers in a log and bring this log with you to your doctors' appointments. (5) Lose Weight if your BMI is above 25. A healthy BMI is between 19-25. To calculate Your BMI, you may use a Standard BMI Calculator on the NIH BMI website: <www.nhlbi.nih.gov/guidelines/obesity/BMI/bmicalc.htm>. Weigh oneself daily. If you are overweight, set a goal to lose weight. A pound a week loss if needed is a good target. (6) Reduce Blood Sugar. Limit foods and liquids with "added sugars." (Added sugars include sucrose, fructose, glucose, maltose, dextrose, high fructose corn syrup, corn syrup, concentrated fruit juice and honey). (7) Stop Smoking. If you smoke, quitting smoking is one of the best things that you can do for your health. Smoking increases your risk of heart attack, stroke, and peripheral vascular disease, which is a build-up of plaque in your arteries. Please discard all the cigarettes and lighters in your house. Have a plan for what you will do when you have the urge to smoke. Direct and second- hand smoke shortens your life as well as the lives of your family, friends and others around you. For your health and the health of those around you, please consider quitting! Proper Bending Body Mechanics: Maintain a wide stance with one foot slightly in front of the other. Keep your back straight. Bend utilizing the strength in your hips and knees. Do not bend at the waist. Maintain the lifted object at your waist-level close to your body. Avoid lifting weight that causes immediately pain or pain anywhere in the body afterwards. Smoking/Nicotine If there was ever one thing that you could do to increase your overall health, decrease your risk of cardiovascular problems by about 39% the second you make the choice, it is to STOP SMOKING. Your body's most instant gratification is the second you stop smoking. We have all heard the studies, read the articles but it is true, smoking is extremely bad for your overall health, and moreover it is detrimental to your bone health. Nicotine, IN ANY FORM, kills bone cells, prevents your body from healing fractures, and significantly prolongs healing after surgery. In spine surgery specifically, it increases your risk of not healing your bones to create a fusion and increases your risk of having a revision surgery due to this up to 60%. I know it is hard. I know it feels impossible. But there are ways. Take control of your life. We are here to help you through it. And when you are ready, ask us and we can direct you to help if you desire. Use the START Plan to Quit Smoking (please visit the Helpguide.org website listed below for more information): S = Set a quit date. Choose a date within the next 2 weeks, so you have enough time to prepare without losing your motivation to quit. If you mainly smoke at work, quit on the weekend, so you have a few days to adjust to the change. T = Tell family, friends, and co-workers that you plan to quit. Let your friends and family in on your plan to quit smoking and tell them you need their support and encouragement to stop. Look for a quit nelson who wants to stop smoking as well. You can help each other get through the rough times. A = Anticipate and plan for the challenges you'll face while quitting. Most people who begin smoking again do so within the first 3 months. You can help yourself make it through by preparing ahead for common challenges, such as nicotine withdrawal and cigarette cravings. R = Remove cigarettes and other tobacco products from your home, car, and work. Throw away all your cigarettes (no emergency pack!), lighters, ashtrays, and matches. Wash your clothes and freshen up anything that smells like smoke. Shampoo your car, clean your drapes and carpet, and steam your furniture. T = Talk to your doctor about getting help to quit. Your doctor can prescribe medication to help with withdrawal and suggest other alternatives. If you can't see a doctor, you can get many products over the counter at your local pharmacy or grocery store, including the nicotine patch, nicotine lozenges, and nicotine gum. Resources for Quitting Smoking: <https ://www.[place].gov/documents/[facility]/Quit_Tobacco_Resources_for_patients_313480_7. pdf> Supplementation: Take recommended dosages of Vitamin D and Calcium to help fortify your bones and help them to heal. See your health maintenance packet for dosages and recommended levels. DVT/VTE prophylaxis: You will be given compression stockings from the hospital. Wear these daily for the first two weeks after surgery. You may take them off at night. You may be prescribed a medication to help thin your blood. Take this as directed. If you are not prescribed this medication, early and frequent ambulation has been shown to be the best prophylaxis to deep vein thrombosis and sequelae related to this event. Discharge Disposition: HOME SELF-CARE
[2023-11-09] MEDS: PANTOPRAZOLE 40 MG/10 ML VIAL IVP SCH (12:08)
[2023-11-09] MEDS: POTASSIUM CHLORIDE ER 20 MEQ TAB.ER PO STA (12:11)
--- NOTE | 2023-11-09 12:14 | P.CONS ---
History of Present Illness - Reason for Consult Consult date: 11/09/23 Medical management Requesting physician: Luc Lr - Chief Complaint Cervical spondylosis with stenosis. - History of Present Illness This is a 68-year-old female with past medical history significant of COPD, diabetes mellitus, fibromyalgia, hypertension, osteoarthritis, thyroid disorder, prior nicotine dependence and multiple other medical issues admitted with c ervical spondylosis with stenosis, status post C4-C7 ACDF, tolerated procedure well. Denies numbness or tingling. recently medicated for pain. Denies numbness or tingling. Participated with PT OT, tolerating exertion well. Denies chest pain, palpitations or shortness of breath. Maintaining O2 sats in the 90s on room air. Tmax 101, normal WBC. Incentive spirometer reinforced. Diet adjusted to consistent carbs., Hemoglobin A1c 6.6. Blood sugars this morning controlled, slightly elevated at lunchtime up to 215. Sodium 131, potassium 3.9, bicarb 22, BUN 25, creatinine 0.93. Hemoglobin 11.4, platelets 160. Review of Systems Constitutional: Denied any fatigue denied any fever. Cardio vascular: denied any chest pain, palpitations Gastrointestinal denied any nausea vomiting Pulmonary: Denied any shortness of breath cough Neurologic denied any new focal deficits ROS Statement: Those systems with pertinent positive or pertinent negative responses have been documented in the HPI. ROS Other: All systems not noted in ROS Statement are negative. Past Medical History Past Medical History: COPD, Diabetes Mellitus, Fibromyalgia, Hypertension, Osteoarthritis (OA), Thyroid Disorder Additional Past Medical History / Comment(s): Beginnings of Rheumatoid Arthritis. Thyroid nodules. No issues with COPD, quit smoking 27 yrs ago. History of Any Multi-Drug Resistant Organisms: None Reported Past Surgical History: Cholecystectomy, Orthopedic Surgery, Tubal Ligation Additional Past Surgical History / Comment(s): Attempted tubal ligation reversal, colonoscopy, thyroid biopsy, left foot surgery. Past Anesthesia/Blood Transfusion Reactions: No Reported Reaction Additional Past Anesthesia/Blood Transfusion Reaction / Comm: Pt has never received blood. Past Psychological History: No Psychological Hx Reported Additional Psychological History / Comment(s): Pt resides with her spouse, cat and dog. She is independent. She has a sugiboot for her L foot. She just bought a kneeling walker to L foot. Smoking Status: Former smoker Past Alcohol Use History: None Reported Additional Past Alcohol Use History / Comment(s): Quit smoking 27 yrs ago. Past Drug Use History: None Reported - Past Family History Sister(s) Family Medical History: Cancer Additional Family Medical History / Comment(s): Kidney cancer in both kidneys, thyroid cancer. Another sister had breast cancer. Father Family Medical History: Diabetes Mellitus Additional Family Medical History / Comment(s): Heart problems, . Mother Additional Family Medical History / Comment(s): Mother of aortic aneurysm rupture at age 55 yrs. Medications and Allergies Home Medications Medication Instructions Recorded Confirmed Type Lisinopril-Hctz 20-25 mg 1 tab PO HS 01/15/15 11/08/23 History [Zestoretic 20-25] Aspirin [Adult Low Dose Aspirin EC] 81 mg PO DAILY 11/04/23 11/08/23 History Biotin 10 Mg 20 mg PO DAILY 11/04/23 11/08/23 History Gabapentin 600 mg PO BID 11/04/23 11/08/23 History Insulin NPH Hum/Reg Insulin Hm 0 unit SQ BID PRN MDD To scale 11/04/23 11/08/23 History [NovoLIN 70-30 100 Unit/ml Vial] Otc Allergy Pill 1 tab PO DAILY PRN 11/04/23 11/08/23 History Tirzepatide [Mounjaro] 7.5 mg SQ FR 11/04/23 11/08/23 History Cyclobenzaprine [Flexeril] 5 mg PO TID PRN #20 tablet 11/09/23 Rx Gabapentin 600 mg PO BID #60 tab 11/09/23 Rx HYDROcodone/APAP 10-325MG [[place] 1 tab PO Q4-6H PRN #42 tab 11/09/23 Rx 10-325] Sennosides/Docusate Sodium [Senna 1 each PO DAILY PRN #20 tab 11/09/23 Rx Plus 8.6-50 mg Tablet] cefaDROXiL [Duricef] 500 mg PO Q12HR #10 cap 11/09/23 Rx Allergies Allergy/AdvReac Type Severity Reaction Status Date / Time No Known Allergies Allergy Verified 11/08/23 06:35 Physical Exam Vitals: Vital Signs Temp Pulse Resp BP Pulse Ox 11/09/23 07:51 101 F H 88 16 105/53 92 L 11/09/23 01:06 98.2 F 80 17 144/71 11/08/23 19:18 97.5 F L 74 19 162/66 97 11/08/23 14:52 97.6 F 62 18 111/60 93 L 11/08/23 14:31 72 16 120/59 99 11/08/23 14:18 67 16 138/64 100 11/08/23 13:27 66 16 122/59 100 11/08/23 13:00 64 17 114/55 99 11/08/23 12:30 63 16 113/56 99 11/08/23 12:15 54 L 16 94/57 99 11/08/23 12:00 65 16 119/53 98 11/08/23 11:45 61 16 111/55 94 L 11/08/23 11:29 60 16 122/55 98 Intake and Output 11/08/23 11/09/23 11/09/23 22:59 06:59 14:59 Output Total 500 1355 Balance -500 -1355 Output: Drainage 30 Right Neck 30 Urine 500 1325 Other: Voiding Method Indwelling Catheter Indwelling Catheter # Voids 1 PHYSICAL EXAM: VITAL SIGNS: [As above] GENERAL: Alert and oriented x 3, sitting up in chair wearing c-collar HEENT: Conjunctivae normal. eyes normal. MMM. NECK: Supple, wearing c-collar CARDIOVASCULAR: S1, S2 regular. No murmur RESPIRATION: Breath sounds diminished in the bases. No rhonchi or crackles. No bronchial breathing. ABDOMEN: Soft, no bloating, nontender . No guarding. no masses palpable. +BS. LEGS: No edema. no swelling. PSYCHIATRY: Alert and oriented X3, mood and affect normal. NERVOUS SYSTEM: Cranial N 2-12 grossly normal. Moves all 4 limbs. No focal deficits. Strength and sensation grossly intact. Skin: Warm and dry, no rash noted. Results CBC & Chem 7: 11/09/23 06:17 11/09/23 06:17 Labs: Abnormal Lab Results - Last 24 Hours (Table) 11/08/23 11/08/23 11/08/23 Range/Units 11:41 16:55 21:13 RBC (3.80-5.40) m/uL Sodium (137-145) mmol/L BUN (7-17) mg/dL Glucose (74-99) mg/dL POC Glucose (mg/dL) 149 H 200 H 140 H (70-110) mg/dL Hemoglobin A1c (<=6.0) % Vitamin D 25-Hydroxy (30.0-100.0) ng/mL 11/09/23 11/09/23 11/09/23 Range/Units 05:33 06:17 06:17 RBC (3.80-5.40) m/uL Sodium (137-145) mmol/L BUN (7-17) mg/dL Glucose (74-99) mg/dL POC Glucose (mg/dL) 151 H (70-110) mg/dL Hemoglobin A1c 6.6 H (<=6.0) % Vitamin D 25-Hydroxy 16.3 L (30.0-100.0) ng/mL 11/09/23 11/09/23 Range/Units 06:17 06:17 RBC 3.62 L (3.80-5.40) m/uL Sodium 131 L (137-145) mmol/L BUN 25 H (7-17) mg/dL Glucose 157 H (74-99) mg/dL POC Glucose (mg/dL) (70-110) mg/dL Hemoglobin A1c (<=6.0) % Vitamin D 25-Hydroxy (30.0-100.0) ng/mL Assessment and Plan Assessment: Cervical spondylosis with stenosis, status post C4-C7 ACDF Postoperative atelectasis, expected outcome COPD, stable Diabetes mellitus type 2 , hemoglobin A1c 6.6 Hypertension History of fibromyalgia Former nicotine dependence Plan: Continue on current medication regimen ,monitoring and symptomatic treatment. Pain management and DVT prophylaxis as per orthopedic spine. PT. aggressive pulmonary toileting with incentive spirometer reinforced. Follow-up with PCP in 1 week. Thank you for the consult. The impression and plan of care has been dictated as directed. : I performed a history and examination of this patient, discussed the same with the dictator. I agree with the dictator's note ,documented as a scribe. Any additional findings or plans will be noted.
[2023-11-09] MEDS ORDERED: LORATADINE 10 MG TAB PO SCH (21:00)
== END 2023-11-09 13:55 | disposition home or self-care (01) ==
LOC: OR 05:41 → 4SSUR 10:29 → OR 11-09 13:55
PROVIDERS: ATTEND Orthopaedic Surgery
DX: M47.22 Other spondylosis with radiculopathy, cervical region (principal); M47.12 Other spondylosis with myelopathy, cervical region; M48.02 Spinal stenosis, cervical region; M50.121 Cervical disc disorder at C4-C5 level with radiculopathy; M50.021 Cervical disc disorder at C4-C5 level with myelopathy; M79.7 Fibromyalgia; M06.9 Rheumatoid arthritis, unspecified; J44.9 Chronic obstructive pulmonary disease, unspecified; E07.9 Disorder of thyroid, unspecified; E11.9 Type 2 diabetes mellitus without complications; E66.9 Obesity, unspecified; I10 Essential (primary) hypertension; F17.210 Nicotine dependence, cigarettes, uncomplicated; Z68.25 Body mass index [BMI] 25.0-25.9, adult; Z79.4 Long term (current) use of insulin; Z79.82 Long term (current) use of aspirin; Z98.1 Arthrodesis status; Z98.51 Tubal ligation status
CPT/HCPCS: 97162; 80048; 83735; 85025; 82306; 83036; 72040; 72125; 20930; 20936; 22551; 22552; 22853; C1713; J2250; J0330; J2710; J0690; J2405; J2001; J3010; J1170 ×3; J2704; J2371 ×2; J1596

== ENCOUNTER 2023-11-20 09:34 | Emergency (ER) | payer MEDICARE ==
--- NOTE | 2023-12-21 10:50 | XR ---
EXAMINATION TYPE: XR cervical spine comp DATE OF EXAM: 12/21/2023 CLINICAL HISTORY: pain COMPARISON: NONE TECHNIQUE: Frontal, lateral, oblique, swimmers, and open mouth view of the cervical spine are obtaine d. FINDINGS: Postoperative changes of anterior cervical disc colectomy and fusion extending from C4 thro ugh C7. Anterior fixation plate is noted to be in place. Intervertebral spacers are also identified. Postoperative alignment is felt to be within normal limits. Neural foramina are patent bilaterally. N o evidence for fracture or malalignment. IMPRESSION: Appropriate postoperative changes of ACDF.
== END 2023-11-20 12:47 | disposition home or self-care (01) ==
LOC: EC 09:34
CPT/HCPCS: 72050; 96372; 99283

== ENCOUNTER 2023-12-10 13:28 | Inpatient (IN) | payer MEDICARE ==
--- NOTE | 2023-12-10 14:27 | ED ---
General Adult HPI - General Chief complaint: Syncope Stated complaint: fall, syncope Time Seen by Provider: 12/10/23 13:42 Source: patient Mode of arrival: ambulatory Limitations: no limitations - History of Present Illness Initial comments: Dictation was produced using Noteg[employer] dictation software. please excuse any grammatical, word or spelling errors. Chief Complaint: 68-year-old female presents to the emergency department after passing out at the store History of Present Illness: Patient 68-year-old female she states that she passed out today. Patient has been having dizzy episodes almost daily for the last month. She has not told her primary care doctor about this. 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 Today she was at the store when all of a sudden she is felt faint and allegedly fell to the ground. Patient had recent neck fusion surgery. States that she is worried that she may have messed up her recent surgery. Denies any neck pain. Denies any heart conditions. Patient states there are some family history of heart conditions. The ROS documented in this emergency department record has been reviewed and confirmed by me. Those systems with pertinent positive or negative responses have been documented in the HPI. All other systems are other negative and/or noncontributory. - Related Data Home Medications Medication Instructions Recorded Confirmed Lisinopril-Hctz 20-25 mg 1 tab PO HS 01/15/15 11/08/23 [Zestoretic 20-25] Aspirin [Adult Low Dose Aspirin EC] 81 mg PO DAILY 11/04/23 11/08/23 Biotin 10 Mg 20 mg PO DAILY 11/04/23 11/08/23 Gabapentin 600 mg PO BID 11/04/23 11/08/23 Insulin NPH Hum/Reg Insulin Hm 0 unit SQ BID PRN MDD To scale 11/04/23 11/08/23 [NovoLIN 70-30 100 Unit/ml Vial] Otc Allergy Pill 1 tab PO DAILY PRN 11/04/23 11/08/23 Tirzepatide [Mounjaro] 7.5 mg SQ FR 11/04/23 11/08/23 Previous Rx's Medication Instructions Recorded Cyclobenzaprine [Flexeril] 5 mg PO TID PRN #20 tablet 11/09/23 Gabapentin 600 mg PO BID #60 tab 11/09/23 Sennosides/Docusate Sodium [Senna 1 each PO DAILY PRN #20 tab 11/09/23 Plus 8.6-50 mg Tablet] cefaDROXiL [Duricef] 500 mg PO Q12HR #10 cap 11/09/23 HYDROcodone/APAP 10-325MG [[place] 1 tab PO Q6HR PRN #28 tab 11/10/23 10-325] Allergies Allergy/AdvReac Type Severity Reaction Status Date / Time No Known Allergies Allergy Verified 12/10/23 13:33 Review of Systems ROS Statement: Those systems with pertinent positive or pertinent negative responses have been documented in the HPI. ROS Other: All systems not noted in ROS Statement are negative. Past Medical History Past Medical History: Diabetes Mellitus, Fibromyalgia, Hypertension, Osteoarthritis (OA), Thyroid Disorder Additional Past Medical History / Comment(s): fibromyalgia History of Any Multi-Drug Resistant Organisms: None Reported Past Surgical History: Cholecystectomy, Orthopedic Surgery, Tubal Ligation Additional Past Surgical History / Comment(s): Attempted tubal ligation reversal. Colonoscopy Past Anesthesia/Blood Transfusion Reactions: No Reported Reaction Additional Past Anesthesia/Blood Transfusion Reaction / Comment(s): Pt has never recieved blood. Past Psychological History: No Psychological Hx Reported Smoking Status: Former smoker Past Alcohol Use History: None Reported Past Drug Use History: None Reported - Past Family History Sister(s) Family Medical History: Cancer Additional Family Medical History / Comment(s): Kidney cancer in both kidneys, thyroid cancer. Another sister had breast cancer. Father Family Medical History: Diabetes Mellitus Additional Family Medical History / Comment(s): Heart problems, . Mother Additional Family Medical History / Comment(s): Mother of aortic aneurysm rupture at age 55 yrs. General Exam - General Exam Comments Initial Comments: PHYSICAL EXAM: General Impression: Alert and oriented x3, not in acute distress HEENT: Normocephalic atraumatic, extra-ocular movements intact, pupils equal and reactive to light bilaterally, mucous membranes moist. Cardiovascular: Heart regular rate and rhythm Chest: Able to complete full sentences, no retractions, no tachypnea Abdomen: abdomen soft, non-tender, non-distended, no organomegaly Musculoskeletal: Pulses present and equal in all extremities, no peripheral edema Motor: no focal deficits noted Neurological: CN II-XII grossly intact, no focal motor or sensory deficits noted Skin: Intact with no visualized rashes Psych: Normal affect and mood Limitations: no limitations Course Vital Signs 12/10/23 13:30 Temperature 97.8 F Pulse Rate 89 Respiratory 16 Rate Blood Pressure 121/74 O2 Sat by Pulse 98 Oximetry - Reevaluation(s) Reevaluation #1: 12/10/23 14:48 I received a call from Dr. Malik at approximately 2:46 PM stating that there does appear to be some JARAD surgical fractures. Patient placed in c-collar. Patient offered pain medication however refused. Pending discussion with patient's spinal surgeon. EKG Findings - EKG Comments: EKG Findings:: My EKG interpretation: Ventricular rate 89, sinus rhythm,. 159, QRS 94, QTc 4 7. Artifact in the high lateral leads and lead III. There is a lot of artifact in aVF making interpretation slightly difficult.. No MT prolongation, no QTC prolongation, no ST or T-wave changes noted. . Overall, this EKG is nonspecific but mostly unremarkable Medical Decision Making - Medical Decision Making Was pt. sent in by a medical professional or institution (, PA, WEB SITE ADMIN, urgent care, hospital, or fpc...) When possible be specific @ -No Did you speak to anyone other than the patient for history (EMS, parent, family, police, friend...)? What history was obtained from this source @ -Some history obtained from patient's brother was at the bedside witnessed a syncopal event Did you review nursing and triage notes (agree or disagree)? Why? @ -I reviewed and agree with nursing and triage notes Were old charts reviewed (outside hosp., previous admission, EMS record, old EKG, old radiological studies, urgent care reports/EKG's, fpc records)? Report findings @ -No old charts were reviewed Differential Diagnosis (chest pain, altered mental status, abdominal pain women, abdominal pain men, vaginal bleeding, musculoskeletal, weakness, fever, dyspnea, syncope, headache, dizziness, GI bleed, back pain, seizure, CVA, palpatations, mental health)? @ -Differential Syncope: Valvular disease, hypertrophic cardiomyopathy, pulmonary embolism, tamponade, tachycardia, bradycardia, MD, hypovolemia, hemorrhage, dissection, anemia, intracranial hemorrhage, seizure, hypoglycemia, carbon monoxide poisoning, this is not meant to be an all-inclusive list. EKG interpreted by me (3pts min.). @ -See above X-rays interpreted by me (1pt min.). @ -None done CT interpreted by me (1pt min.). @ -CT scan of the head and C-spine shows acute C5 vertebral body periprosthetic fracture with hardware migration U/S interpreted by me (1pt. min.). @ -None done What testing was considered but not performed or refused? (CT, X-rays, U/S, labs)? Why? @ -None What meds were considered but not given or refused? Why? @ -None Was smoking cessation discussed for >3mins.? @ -No Were there social determinants of health that impacted care today? How? (Homelessness, low income, unemployed, alcoholism, drug addiction, transportation, low edu. Level, literacy, decrease access to med. care, halfway, rehab)? @ -No Was there de-escalation of care discussed even if they declined (Discuss DNR or withdrawal of care, Hospice)? DNR status @ -No What co-morbidities impacted this encounter? (DM, HTN, Smoking, COPD, CAD, Cancer, CVA, ARF, Chemo, Hep., AIDS, mental health diagnosis, sleep apnea, morb id obesity)? @ -None Was patient admitted / discharged? Hospital course, mention meds given and rou te, prescriptions, significant lab abnormalities, going to OR and other pertinent info. @ -68-year-old female with recent neck fusion surgery presents to the emergency department for syncopal episode. Vital signs stable. EKG is unremarkable. Laboratory evaluation obtained. Imaging studies shows periprosthetic fracture. Case discussed with radiologist along with spine surgeon. Plan is for patient to be admitted with revision surgery tomorrow. Did you discuss the management of the patient with other professionals (professionals i.e. , PA, WEB SITE ADMIN, lab, RT, psych nurse, social services assistant, train dispatcher, teacher, highway patrol officer, case fitter)? Give summary @ -See above Was critical care preformed (if so, how long)? @ -No Undiagnosed new problem with uncertain prognosis? @ -No Drug Therapy requiring intensive monitoring for toxicity (Heparin, Nitro, Insulin, Cardizem)? @ -No Were any procedures done? @ -No Diagnosis/symptom? Acute, or Chronic, or Acute on Chronic? Uncomplicated (without systemic symptoms) or Complicated (systemic symptoms)? @ -Syncope, cervical periprosthetic fracture Side effects of treatment? @ -No Exacerbation, Progression, or Severe Exacerbation? @ -No Poses a threat to life or bodily function? How? (Chest pain, USA, MD, pneumonia, PE, COPD, DKA, ARF, appy, cholecystitis, CVA, Diverticulitis, Homicidal, Suicidal, threat to staff... and all critical care pts) @ -yes - Lab Data Result diagrams: 12/10/23 14:42 Lab Results 12/10/23 Range/Units 14:42 WBC 5.2 (3.8-10.6) k/uL RBC 3.59 L (3.80-5.40) m/uL Hgb 11.7 (11.4-16.0) gm/dL Hct 34.2 (34.0-46.0) % MCV 95.5 (80.0-100.0) fL MCH 32.7 (25.0-35.0) pg MCHC 34.2 (31.0-37.0) g/dL RDW 13.7 (11.5-15.5) % Plt Count 159 (150-450) k/uL MPV 8.0 Neutrophils % 52 % Lymphocytes % 33 % Monocytes % 6 % Eosinophils % 5 % Basophils % 1 % Neutrophils # 2.7 (1.3-7.7) k/uL Lymphocytes # 1.7 (1.0-4.8) k/uL Monocytes # 0.3 (0-1.0) k/uL Eosinophils # 0.3 (0-0.7) k/uL Basophils # 0.0 (0-0.2) k/uL Disposition Clinical Impression: Syncope Disposition: ADMITTED IP TO THIS [facility] Condition: Fair Referrals: Nilay Ferro DO [Primary Care Provider] - 1-2 days Decision Time: 15:18
--- NOTE | 2023-12-10 14:54 | CT ---
EXAMINATION TYPE: CT brain cspine wo con CT DLP: 1506.2 mGycm, Automated exposure control for dose reduction was used. DATE OF EXAM: 12/10/2023 2:38 PM COMPARISON: 11/08/2023 CLINICAL INDICATION: Female, 68 years old with history of fall; Dizziness TECHNIQUE: Brain: Multiple axial CT images of the brain were obtained without IV contrast. Cspine: Axial CT images from the skull base to the inferior aspect of T2 we obtained without intraven ous contrast. Coronal and sagittal reformatted images were also reviewed. . FINDINGS: Brain: Extra-axial spaces: No abnormal extra-axial fluid collections. Ventricular system: Within normal limits Cerebral parenchyma: No acute intraparenchymal hemorrhage or mass effect. The hutson-white junction is well differentiated. Cerebellum: Unremarkable. Mass effect: No evidence of midline shift. Intracranial vasculature: unremarkable Soft tissues: Normal. Calvarium/osseous structures: No depressed skull fracture. Paranasal sinuses and mastoid air cells: Clear. Visualized orbits: Orbital contents are intact. Cervical spine: Fracture: C5 vertebral body fracture anteriorly. Osseous structures: Multilevel degeneration changes throughout the spine with disc space narrowing an d facet joint arthropathy. Fixation hardware at C4 C5 C6 and C7 in place. Discectomy C4-C5, C5-C6 and C6-C7. Hardware appears to have retracted with fracture of the anterior aspect of the C5 vertebrae. The C6 and C7 screws also appear to have slightly pulled back from the placement present on 11/08/2023 . Migration of the screws: C7 on the right 4 mm, left 1 mm. C6 on the right 4 mm, left 4 mm. C5 on the right 1, left 3 mm. Vertebral alignment: Straightening of the alignment. Spinal canal/Neural Foramina: No evidence of significant spinal canal narrowing. No evidence for sign ificant neural foraminal stenosis. Neck soft tissues: Prevertebral soft tissues are within normal limits. Other: The airway is patent. The lung apices are clear. IMPRESSION: 1. No evidence for acute intracranial process. 2. Acute C5 vertebral body periprosthetic fracture with hardware migration of C5-C6 and C7 screws. Findings communicated to Dr. Lr and Rahul Judge 12/10/2023 2:[address] Kenroy Burton.
[2023-12-10] MEDS ORDERED: NALOXONE 0.4 MG/ML 1 ML VIAL IV PRN (15:15)
[2023-12-10] MEDS ORDERED: ACETAMINOPHEN TAB 325 MG TAB PO PRN (15:15)
[2023-12-10] MEDS ORDERED: ONDANSETRON 4 MG/2 ML VIAL IVP PRN (15:15)
[2023-12-10 15:17] LABS: Basophils % (A) 1 %; Eosinophils # (A) 0.3 k/uL (0-0.7); Eosinophils % (A) 5 %; HCT 34.2 % (34.0-46.0); HGB 11.7 gm/dL (11.4-16.0); Lymphocytes # (A) 1.7 k/uL (1.0-4.8); Lymphocytes % (A) 33 %; MCH 32.7 pg (25.0-35.0); MCHC 34.2 g/dL (31.0-37.0); MCV 95.5 fL (80.0-100.0); Monocytes # (A) 0.3 k/uL (0-1.0); Monocytes % (A) 6 %; Neutrophils # (A) 2.7 k/uL (1.3-7.7); Neutrophils % (A) 52 %; Platelet Count 159 k/uL (150-450); RBC 3.59 m/uL (3.80-5.40); RDW 13.7 % (11.5-15.5); WBC 5.2 k/uL (3.8-10.6)
[2023-12-10 15:25] LABS: African American GFR (CKD) 40 (>60 ml/min/1.73 sqM); Anion Gap 4 mmol/L; Blood Urea Nitrogen 32 mg/dL (7-17); Calcium 9.8 mg/dL (8.4-10.2); Carbon Dioxide 24 mmol/L (22-30); Chloride 103 mmol/L (98-107); Glucose 147 mg/dL (74-99); Non-African American GFR(CKD) 35 (>60 ml/min/1.73 sqM); Potassium 3.9 mmol/L (3.5-5.1); Sodium 131 mmol/L (137-145)
[2023-12-10 20:26] LABS: Glucose,Whole Blood 225 mg/dL (70-110)
[2023-12-10] MEDS: SODIUM CHLORIDE 0.9% 1,000 ML IV SCH (22:24)
[2023-12-11 05:50] LABS: Glucose,Whole Blood 107 mg/dL (70-110)
[2023-12-11] MEDS: INSULIN ASPART (NovoLOG) 100 UNIT/ML VIAL SQ SCH (06:41)
[2023-12-11 11:46] LABS: Glucose,Whole Blood 134 mg/dL (70-110)
--- NOTE | 2023-12-11 13:22 | P.CNOR ---
History of Present Illness - [facility] Consult date: 12/11/23 Consult reason: other (Hardware failure cervical spine) History of present illness: Patient is a 68-year-old female who presented to [facility] on 12/10/2023 after sustaining a fall. Patient was brought into the hospital for further evaluation, imaging and lab tests were done. It was determined that the hardware surrounding her ACDF was involved, including a possible fracture at the C5 vertebral body. Dr. Lr was contacted by the emergency room physician and they discussed the case. Patient was admitted under our orthopedic care with plan for likely surgical intervention. Patient was evaluated today at bedside, she is resting comfortably. Patient states that she has been dealing with this lightheadedness feeling when standing up for the last few months. She has been on a few different medications. She does follow-up with both her internal medicine doctor and her ceiling installer. She states yesterday she had 1 of these attacks when she fell and did hit her head while going into the [employer]. Patient states that since the fall she has had no worsening neck pain or changes to the upper extremities. She does note some soreness across the back of her neck and shoulder blades. Patient did have an ACDF of C4-C7 on November 08, 2023. Since the surgery she has been doing very well, she has been ambulating a lot better. Her fine motor skills of the upper extremities are much improved. The numbness and tingling in the that she was dealing with in the bilateral upper extremities is much improved. Since the fall yesterday, she denies any worsening pain to the cervical spine. She denies any reji loss of motion of the bilateral upper extremities. She denies any worsening numbness or tingling. She denies any lower extremity issues, this to include gait. She denies any loss of bowel or bladder function at this time. Review of Systems Constitutional: Reports as per HPI Past Medical History Past Medical History: Diabetes Mellitus, Fibromyalgia, Hypertension, Osteoarthritis (OA), Thyroid Disorder Additional Past Medical History / Comment(s): fibromyalgia History of Any Multi-Drug Resistant Organisms: None Reported Past Surgical History: Cholecystectomy, Orthopedic Surgery, Tubal Ligation Additional Past Surgical History / Comment(s): Attempted tubal ligation reversal. Colonoscopy Past Anesthesia/Blood Transfusion Reactions: No Reported Reaction Additional Past Anesthesia/Blood Transfusion Reaction / Comm: Pt has never r ecieved blood. Past Psychological History: No Psychological Hx Reported Additional Psychological History / Comment(s): Pt resides with her spouse, cat and dog. She is independent. She has a sugiboot for her L foot. She just bought a kneeling walker to L foot. Smoking Status: Former smoker Past Alcohol Use History: None Reported Additional Past Alcohol Use History / Comment(s): Pt states she started smoking at age 16 and quit in 2001. Past Drug Use History: None Reported - Past Family History Sister(s) Family Medical History: Cancer Additional Family Medical History / Comment(s): Kidney cancer in both kidneys, thyroid cancer. Another sister had breast cancer. Father Family Medical History: Diabetes Mellitus Additional Family Medical History / Comment(s): Heart problems, . Mother Additional Family Medical History / Comment(s): Mother of aortic aneurysm rupture at age 55 yrs. Medications and Allergies Home Medications Medication Instructions Recorded Confirmed Type Lisinopril-Hctz 20-25 mg 1 tab PO HS 01/15/15 12/10/23 History [Zestoretic 20-25] Aspirin [Adult Low Dose Aspirin EC] 81 mg PO DAILY 11/04/23 12/10/23 History Insulin NPH Hum/Reg Insulin Hm 20 unit SQ AC-BRKFST 11/04/23 12/10/23 History [NovoLIN 70-30 100 Unit/ml Vial] Tirzepatide [Mounjaro] 7.5 mg SQ Q14D 11/04/23 12/10/23 History Gabapentin 600 mg PO BID #60 tab 11/09/23 12/10/23 Rx Cyclobenzaprine [Flexeril] 10 mg PO TID PRN 12/10/23 12/10/23 History Ergocalciferol [Vitamin D2 (1250 1,250 mcg PO GARVIN 12/10/23 12/10/23 History Mcg = 23758 Iu)] HYDROcodone/APAP 10-325MG [[place] 1 tab PO Q4H PRN 12/10/23 12/10/23 History 10-325] Insulin NPH Hum/Reg Insulin Hm 10 unit SQ AC-SUPPER 12/10/23 12/10/23 History [NovoLIN 70-30 100 Unit/ml Vial] Insulin NPH Hum/Reg Insulin Hm 30 unit SQ AC-LUNCH 12/10/23 12/10/23 History [NovoLIN 70-30 100 Unit/ml Vial] Zolpidem [Ambien] 10 mg PO HS PRN 12/10/23 12/10/23 History Allergies Allergy/AdvReac Type Severity Reaction Status Date / Time No Known Allergies Allergy Verified 12/10/23 16:59 Physical Examination Gen: AOx3, NAD VSS stable at this time Integument: Right sided anterior neck incision is well-healing, there is minimal scab formation noted. There is no significant erythema or soft tissue swelling present Palpation: She does demonstrate some mild tenderness in the paraspinal region of the lower cervical spine ROM: Range of motion intact in all major muscle groups of the bilateral upper extremities. She does have a difficult time with full shoulder elevation on the right, she does states she has a chronic shoulder issue. Full range of motion in all major muscle groups of the bilateral lower extremities, no focal deficits Sensory Exam: Senory exam to light touch is intact C5-T1 Senosry exam to light touch is intact L2-S1 Motor: 4/5 strength appreciated the bilateral upper extremities with shoulder elevation, shoulder abduction, elbow extension, elbow flexion, wrist extension, wrist flexion, director mission 5/5 strength appreciated the bilateral lower extremities with hip flexion, knee extension, knee flexion, plantarflexion, dorsiflexion, EHL, FHL Reflexes: 2/4 in all UE and LE Negative Raman's bilaterally Results - Labs Labs: Abnormal Lab Results - Last 24 Hours (Table) 12/10/23 12/10/23 12/10/23 Range/Units 14:42 14:42 20:21 RBC 3.59 L (3.80-5.40) m/uL Sodium 131 L (137-145) mmol/L BUN 32 H (7-17) mg/dL Creatinine 1.55 H (0.52-1.04) mg/dL Glucose 147 H (74-99) mg/dL POC Glucose (mg/dL) 225 H (70-110) mg/dL 12/11/23 Range/Units 11:45 RBC (3.80-5.40) m/uL Sodium (137-145) mmol/L BUN (7-17) mg/dL Creatinine (0.52-1.04) mg/dL Glucose (74-99) mg/dL POC Glucose (mg/dL) 134 H (70-110) mg/dL H & H 12/10/23 Range/Units 14:42 Hgb 11.7 (11.4-16.0) gm/dL Hct 34.2 (34.0-46.0) % Result Diagrams: 12/10/23 14:42 12/10/23 14:42 - Diagnostic results CT scan - cervical: report reviewed, image reviewed (Reports and images were reviewed of the cervical spine CT. Images do demonstrate fracturing involving the C5 vertebral body. There is screw migration noted throughout the fusion from C4-C7.) Assessment and Plan Assessment: Hardware failure anterior cervical spine Status post fall from standing History of previous ACDF C4-C7 Other medical comorbidities Plan: After discussion of the case with Dr. Goodman Fernandes, this to include physical exam findings and imaging studies, we will plan to proceed with surgical intervention on 12/12/2023. Patient was boarded for a revision ACDF of the cervic al spine with possible corpectomy. Patient was made aware that Dr. Bernabe's and would be available in the preoperative area tomorrow to discuss this in further detail. Risk and benefits of the procedure were discussed with the patient today at bedside, she is in good understanding and would like to proceed. Consent will be obtained prior to the procedure. Patient does have hard cervical collar at bedside, recommend using this when ambulatory and sleeping. She can take breaks from it when sitting upright in the chair Pain control, adequate at this time DVT prophylaxis, MONICA hose at this time N.p.o. after midnight Medical recommendations appreciated Further recommendations to follow Time with Patient: Less than 30
[2023-12-11 16:07] LABS: African American GFR (CKD) 67 (>60 ml/min/1.73 sqM); Anion Gap 6 mmol/L; Blood Urea Nitrogen 20 mg/dL (7-17); Carbon Dioxide 25 mmol/L (22-30); Chloride 103 mmol/L (98-107); Glucose 187 mg/dL (74-99); Non-African American GFR(CKD) 58 (>60 ml/min/1.73 sqM); Sodium 134 mmol/L (137-145)
[2023-12-11 16:55] LABS: Glucose,Whole Blood 174 mg/dL (70-110)
[2023-12-11] MEDS ORDERED: CYCLOBENZAPRINE 10 MG TAB PO PRN (17:08)
[2023-12-11] MEDS ORDERED: HYDROcodone/APAP 10-325MG 1 EACH TAB PO PRN (17:08)
--- NOTE | 2023-12-11 17:11 | P.CONS ---
History of Present Illness - Reason for Consult Consult date: 12/11/23 - Chief Complaint Syncope/fall - History of Present Illness 68-year-old female she states that she passed out today. Patient has been having dizzy episodes almost daily for the last month. She has not told her primary care doctor about this. 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 Today she was at the store when all of a sudden she is felt faint and allegedly fell to the ground. Patient had recent neck fusion surgery. States that she is worried that she may have messed up her recent surgery. Denies any neck pain. Denies any heart conditions. Patient states there are some family history of heart conditions. --Patient reports almost daily near syncopal episodes which she prevents by sitt ing down immediately; according to patient today's episode was somewhat different and she did faint and fell to the ground Blood work completed in ED reveals a WBC of 5.2, hemoglobin of 11.7 and platelet count of 159, sodium 131, potassium 3.9, BUNs/creatinine of 32/1.55, blood glucose of 147 CT of head cervical spine completed in ED does not reveal any evidence of acute intracranial process. Acute C5 vertebral body periprostatic fracture with hardware migration of C5-C6 and C7 screws EKG interpretation: Ventricular rate 89, sinus rhythm,. 159, QRS 94, QTc 4 7. Artifact in the high lateral leads and lead III. There is a lot of artifact in aVF making interpretation slightly difficult.. No MO prolongation, no QTC prolongation, no ST or T-wave changes noted. . Overall, this EKG is nonsp ecific but mostly unremarkable Review of Systems REVIEW OF SYSTEMS: CONSTITUTIONAL: No fever, no malaise, no fatigue. HEENT: No recent visual problems or hearing problems. Denied any sore throat. CARDIOVASCULAR: No chest pain, orthopnea, PND, no palpitations, no syncope. PULMONARY: No shortness of breath, no cough, no hemoptysis. GASTROINTESTINAL: No diarrhea, no nausea, no vomiting, no abdominal pain. NEUROLOGICAL: No headaches, no weakness, no numbness. HEMATOLOGICAL: Denies any bleeding or petechiae. GENITOURINARY: Denies any burning micturition, frequency, or urgency. MUSCULOSKELETAL/RHEUMATOLOGICAL: Denies any joint pain, swelling, or any muscle pain. ENDOCRINE: Denies any polyuria or polydipsia. The rest of the 14-point review of systems is negative. Past Medical History Past Medical History: Diabetes Mellitus, Fibromyalgia, Hypertension, Osteoarthritis (OA), Thyroid Disorder Additional Past Medical History / Comment(s): fibromyalgia History of Any Multi-Drug Resistant Organisms: None Reported Past Surgical History: Cholecystectomy, Orthopedic Surgery, Tubal Ligation Additional Past Surgical History / Comment(s): Attempted tubal ligation reversal. Colonoscopy Past Anesthesia/Blood Transfusion Reactions: No Reported Reaction Additional Past Anesthesia/Blood Transfusion Reaction / Comm: Pt has never recieved blood. Past Psychological History: No Psychological Hx Reported Additional Psychological History / Comment(s): Pt resides with her spouse, cat and dog. She is independent. She has a sugiboot for her L foot. She just bought a kneeling walker to L foot. Smoking Status: Former smoker Past Alcohol Use History: None Reported Additional Past Alcohol Use History / Comment(s): Pt states she started smoking at age 16 and quit in 2001. Past Drug Use History: None Reported - Past Family History Sister(s) Family Medical History: Cancer Additional Family Medical History / Comment(s): Kidney cancer in both kidneys, thyroid cancer. Another sister had breast cancer. Father Family Medical History: Diabetes Mellitus Additional Family Medical History / Comment(s): Heart problems, . Mother Additional Family Medical History / Comment(s): Mother of aortic aneurysm rupture at age 55 yrs. Medications and Allergies Home Medications Medication Instructions Recorded Confirmed Type Lisinopril-Hctz 20-25 mg 1 tab PO HS 01/15/15 12/10/23 History [Zestoretic 20-25] Aspirin [Adult Low Dose Aspirin EC] 81 mg PO DAILY 11/04/23 12/10/23 History Insulin NPH Hum/Reg Insulin Hm 20 unit SQ AC-BRKFST 11/04/23 12/10/23 History [NovoLIN 70-30 100 Unit/ml Vial] Tirzepatide [Mounjaro] 7.5 mg SQ Q14D 11/04/23 12/10/23 History Gabapentin 600 mg PO BID #60 tab 11/09/23 12/10/23 Rx Cyclobenzaprine [Flexeril] 10 mg PO TID PRN 12/10/23 12/10/23 History Ergocalciferol [Vitamin D2 (1250 1,250 mcg PO GARVIN 12/10/23 12/10/23 History Mcg = 51529 Iu)] HYDROcodone/APAP 10-325MG [[place] 1 tab PO Q4H PRN 12/10/23 12/10/23 History 10-325] Insulin NPH Hum/Reg Insulin Hm 10 unit SQ AC-SUPPER 12/10/23 12/10/23 History [NovoLIN 70-30 100 Unit/ml Vial] Insulin NPH Hum/Reg Insulin Hm 30 unit SQ AC-LUNCH 12/10/23 12/10/23 History [NovoLIN 70-30 100 Unit/ml Vial] Zolpidem [Ambien] 10 mg PO HS PRN 12/10/23 12/10/23 History Allergies Allergy/AdvReac Type Severity Reaction Status Date / Time No Known Allergies Allergy Verified 12/10/23 16:59 Physical Exam Vitals: Vital Signs Temp Pulse Pulse Resp BP BP Pulse Ox 12/11/23 08:00 85 16 12/11/23 06:59 98.4 F 85 16 109/66 98 12/11/23 02:08 97.9 F 77 18 122/69 93 L 12/10/23 19:44 97.9 F 91 17 146/77 99 12/10/23 17:28 97.5 F L 89 16 163/72 99 12/10/23 16:52 82 16 126/74 12/10/23 13:30 97.8 F 89 16 121/74 98 Intake and Output 12/10/23 12/11/23 12/11/23 22:59 06:59 14:59 Other: Voiding Method Toilet # Voids 1 2 Weight 102.058 kg General Impression: Alert and oriented x3, not in acute distress HEENT: Normocephalic atraumatic, extra-ocular movements intact, pupils equal and reactive to light bilaterally, mucous membranes moist. Cardiovascular: Heart regular rate and rhythm Chest: Able to complete full sentences, no retractions, no tachypnea Abdomen: abdomen soft, non-tender, non-distended, no organomegaly Musculoskeletal: Pulses present and equal in all extremities, no peripheral edema Motor: no focal deficits noted Neurological: CN II-XII grossly intact, no focal motor or sensory deficits noted Skin: Intact with no visualized rashes Psych: Normal affect and mood Results CBC & Chem 7: 08/31/24 14:42 12/11/23 15:35 Labs: Abnormal Lab Results - Last 24 Hours (Table) 12/10/23 12/10/23 12/10/23 Range/Units 14:42 14:42 20:21 RBC 3.59 L (3.80-5.40) m/uL Sodium 131 L (137-145) mmol/L BUN 32 H (7-17) mg/dL Creatinine 1.55 H (0.52-1.04) mg/dL Glucose 147 H (74-99) mg/dL POC Glucose (mg/dL) 225 H (70-110) mg/dL Assessment and Plan Assessment: 1. Acute syncope --Patient reports she has been having several near syncopal episodes daily for past few weeks; had scheduled an appointment with PCP -- CT of the head completed in ED remains unremarkable -Patient will be admitted to telemetry; we will monitor EKG, trend troponin -- Will order 2D echo; bilateral carotid Doppler, order vitamin B12 and folic acid levels, TSH -Will order orthostatic vital signs and neurochecks per protocol -Will consult cardiology and neurology for further evaluation 2. Syncope/fall with acute C5 vertebral body fracture -CT of the cervical spine reveals acute C5 vertebral body periprosthetic fracture with hardware migration of C5-C6 and C7 screws -- Patient has been evaluated by orthopedic surgery, planning surgical intervention on 12/12/2023 -- Cardiology is consulted for surgical clearance 3. Hypertension; patient takes Zestoretic 2024 1 tablet nightly 4. Diabetes mellitus with long-term insulin use; we will monitor Accu-Cheks before every meal and at bedtime with insulin sliding scale; patient takes insulin NPH along with Mounjaro 7.5 mg; we will hold off while inpatient 5. Neuropathy; continue with home dose of Neurontin DVT prophylaxis; SCDs only given possible surgical procedure in next 12 to 24 hours CODE STATUS; full code
--- NOTE | 2023-12-11 19:20 | US ---
EXAMINATION TYPE: US carotid duplex BILAT DATE OF EXAM: 12/11/2023 COMPARISON: NONE CLINICAL INDICATION: Female, 68 years old with history of Syncopal episode; syncope TECHNIQUE: Carotid duplex ultrasound examination. Indirect Doppler criteria was utilized. FINDINGS: EXAM MEASUREMENTS: RIGHT: Peak Systolic Velocity (PSV) cm/sec ----- Right CCA: 76 ----- Right ICA: 97.4 ----- Right ECA: 116 ICA/CCA ratio: 1.5 RIGHT: End Diastole cm/sec ----- Right CCA: 6.5 ----- Right ICA: 22.1 ----- Right ECA: 7.2 LEFT: Peak Systolic Velocity (PSV) cm/sec ----- Left CCA: 85.2 ----- Left ICA: 117 ----- Left ECA: 108 ICA/CCA ratio: 1.4 LEFT: End Diastole cm/sec ----- Left CCA: 12.7 ----- Left ICA: 28.1 ----- Left ECA: 0 VERTEBRALS (direction of flow): Right Vertebral: Not well visualized Left Vertebral: Antegrade Rhythm: Normal INSULATION HOSEMAN NOTES: No significant stenosis seen IMPRESSION: Less than 50% stenosis of the bilateral carotid bifurcations. Criteria for Assigning % of Stenosis / Diameter reduction (Estimation based on the indirect measurements of the internal carotid artery velocities (ICA PSV). 1. Normal (no stenosis)=ICA PSV < 125 cm/s: ratio < 2.0: ICA EDV<40 cm/s. 2. Less than 50% stenosis=ICA PSV < 125 cm/s: ratio < 2.0: ICA EDV<40 cm/s. 3. 50 to 69% stenosis=ICA PSV of 125 to 230 cm/s: ration 2.0 ? 4.0: ICA EDV 40-100 cm/s. 4. Greater than 70% stenosis to near occlusion= ICA PSV > 230 cm/s: ratio > 4.0: ICA EDV > 100 cm/s. 5. Near occlusion= ICA PSV velocities may be low or undetectable: variable ratio and ICA EDV. 6. Total occlusion=unable to detect flow.
[2023-12-11 21:09] LABS: Glucose,Whole Blood 162 mg/dL (70-110)
[2023-12-11] MEDS: GABAPENTIN 300 MG CAP PO SCH (21:45)
[2023-12-12 05:36] LABS: Glucose,Whole Blood 130 mg/dL (70-110)
--- NOTE | 2023-12-12 08:27 | P.PN ---
Progress Note - Text Progress Note Date: 12/12/23 Patient seen and examined, I reviewed the note, discussed the case with the PA first hand and agree with the assessment and plan of GABY Garcia. Please see my notes below for any additional recommendations. Spine Surgery Clinical and Risk Review Mica Leonardo is a 68 yo female presenting for evaluation of fall from standing at grocery store with neck pain. It was my pleasure to have seen and examined Mica. In our visit today we have had a chance to go over subjective complaints, physical examination findings and treatments including the natural course history without intervention and various interventional options. The patients imaging demonstrates Post surgical changes C4-7 ACDF with hardware failure and loosening due to trauma at C5, C6 and C7 with C5 and C6 vertebral body fractures. C7 screws have pulled out and C4 screws are the only ones that appear to be stable at this time. Cages have all shifted with C6-7 being the wo rst with settling, fracture and migration. There is loss of normal Cervical lordosis due to these fractures and collapse. There is moderate stenosis due to the fractures as well as the alignment changes and collapse. No other fractures noted at this time. . On physical exam, Mica Leonardo demonstrates neck pain with any motion. Syncopal episodes which have lead to this issue. She is having what appears or sounds like from report orthostatic events that cause her to pass out and fall. This most recent was at the grocery store and she has now disrupted her hardware because of it. Otherwise she has maintained strength in BLUE and LE. She has similar numbness/tingling to before surgery with out significant increase. She is surprisingly neuro-intact at this time. I have explained to the patient that as their condition progresses it will cause further neurological deficits and eventual paralysis. Based on the patients imaging, physical exam, and the rapid progression and disabling nature of their symptoms, at this time I recommend surgery in the form or a: STAGE I: REVISION C4-7 ANTERIOR CERVICAL FUSION STAGE II: C2-T2 DECOMPRESSION, STABILIZATION AND FUSION. I discussed the risk and benefits of this procedure at length with Mica Leonardo. The patient spouse agreed to considered pursuing the procedure abovementioned. Prior to surgery, she should follow up with her PCP (Cardio, ID, IM etc) for clearance. Questions were invited and answered, and the patient wishes to proceed as outlined below. Currently, I am recommendin. STAGE I: REVISION C4-7 ANTERIOR CERVICAL FUSION STAGE II: C2-T2 DECOMPRESSION, STABILIZATION AND FUSION 2. SURGICAL CLEARANCE, AWAITING CARDIAC CLEARANCE FOR SURGERY 3. Review of surgical risks and benefits as well as an educational packet on the proposed surgical procedure. Risks: All surgical procedures come with inherent risks, including those related to positioning, anesthesia, intraoperative findings, and postoperative complications. It is important to understand that surgery does not come with any guarantee of a successful outcome as complications and adverse events are always possible. The patient was given a handout in office today discussing the surgical procedure and risks associated with the intervention, both of which were discussed with the patient. These risks include but are not limited to the following: * Experiencing same, different or even worse symptoms in back, neck, arms, or legs compared to before surgery. * Requiring further surgery or other forms of treatment presently or at some time in the future at same or other levels of the intended spine surgery. * On an extreme but fortunately relatively rare basis severe complication such as blindness, stroke, heart attack, temporary and/or permanent nerve inju ry, paralysis, coma, or may occur, sometimes without known explanation. * Surgical complications may include but are not limited to risk of infection, fluid accumulation in the surgical dissection site, including a seroma or hematoma, that requires additional surgery, wound drainage, bleeding, new numbness or weakness, vision changes/loss, spinal fluid leakage, non-healing and/or infected incision, headaches, difficulty or inability to swallow, hoarseness, hemopneumothorax, pneumothorax, impotence, retrograde ejaculation, vaginal dryness; injury to nerves, spinal cord, blood vessels, lymphatics or other vital organs (i.e., bowel injury, injury to the great vessels); heterotopic bone formation; complications related to the hardware such as screws, rods, cages including misplaced hardware, device failure, instrumentation at the wrong spine level, hardware fracture/breakage, or hardware loosening; vertebral failure of the spinal column above or below the newly placed hardware; retained surgical instrumentations or devices and the need for further surgery. * Medical risks of the planned spine surgery include but are not limited to generalized Infections to the whole body or local areas outside of the surgical site (sepsis), heart attack, bleeding, anaphylaxis, meningitis, seizure, epilepsy, hearing loss, burn morales, laceration of the head or other areas of the body, bruising, hypersensitivity of the skin, bladder over distension; allergic reaction; shoulder injury related to positioning; fat, blood and air clots to other areas of the body like heart, lungs, brain; failure of internal organs such as lungs, kidneys, liver and excessive bleeding. If blood transfusions are necessary, note that transfusions may cause intolerance reactions such as anaphylaxis or other complex reactions. * Despite best efforts, the results of spine surgery might not heal in terms of bone, soft tissues such as skin, fascia, ligaments, and joints. Additionally, in order to achieve best possible results, spine surgery may be carried out beyond the initially planned levels and involve decompression, fusion including insertion of hardware at levels other than the original intended area of surgical interest change some portions of the procedure in order to ensure the best possible outcomes. * With spine surgery and spinal fusion, there are different off label uses of instrumentation (devices, implants and hardware) as well as biological substances (bone morphogenic proteins, demineralized bone matrix) as well as using extra bone from allograft sources (i.e. cadaver bone) or autograft (iliac crest bone, ribs, or the spine itself). The patient has been given information about these practices and their inherent risks and benefits. The patient has had a chance to review all the listed information, has been given print outs detailing this information, and has had all his/her questions answered to their satisfaction. It was my pleasure to have seen and examined Mica Leonardo. In our visit today we have had a chance to go over my understanding of our patient's current condition, the natural course history without intervention and various interventional options. Questions were invited and answered, and the patient wishes to proceed as outlined above. I have seen and examined the patient for 25 minutes and we have spent more than 50% of the time in repeat and detailed counseling about the patient's condition, its natural course history with out and as much as can be predicted with surgery and re-review of various surgical treatment options. In conclusion, Mica Leonardo and spouse requested we proceed with the above suggested surgery and are willing to accept risks and limitations of the suggested surgery as nature of the disease process and our best attempts at treatment for the condition. Thank you again for allowing us to be part of your patient's care. Please don't hesitate to contact me if you have any further questions. Signed and authenticated by: Luc Lent[facility] [address] [place] [address]
[2023-12-12 11:45] LABS: Basophils # (A) 0.04 X 10*3/uL (0.00-0.10); Eosinophils % (A) 7.1 %; HCT 30.5 % (37.2-46.3); HGB 10.4 g/dL (12.0-15.0); Lymphocytes # (A) 1.74 X 10*3/uL (0.90-5.00); Lymphocytes % (A) 41.4 %; MCH 32.2 pg (27.0-32.0); MCHC 34.1 g/dL (32.0-37.0); MCV 94.4 FL (80.0-97.0); Mean Platelet Volume 10.6 FL (9.5-12.2); Monocytes # (A) 0.51 X 10*3/uL (0.20-1.00); Monocytes % (A) 12.1 %; NRBC Per 100 WBC 0 X 10*3/uL (0.00-0.01); Neutrophils % (A) 38.2 %; Platelet Count 139 X 10*3/uL (140-440); RBC 3.23 X 10*6/uL (4.10-5.20); RDW 13.1 % (11.5-14.5)
[2023-12-12 12:07] LABS: Glucose,Whole Blood 148 mg/dL (70-110)
[2023-12-12 12:07] LABS: Blood Urea Nitrogen 13.3 mg/dL (9.0-27.0); Calcium 8.6 mg/dL (8.7-10.3); Chloride 103 mmol/L (96-109); Glucose 128 mg/dL (70-110); Potassium 3.8 mmol/L (3.5-5.5); Sodium 136 mmol/L (135-145)
--- NOTE | 2023-12-12 12:32 | P.PN ---
Subjective 68-year-old female she states that she passed out today. Patient has been having dizzy episodes almost daily for the last month. She has not told her primary care doctor about this. 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 Today she was at the store when all of a sudden she is felt faint and allegedly fell to the ground. Patient had recent neck fusion surgery. States that she is worried that she may have messed up her recent surgery. Denies any neck pain. Denies any heart conditions. Patient states there are some family history of heart conditions. --Patient reports almost daily near syncopal episodes which she prevents by sitting down immediately; according to patient today's episode was somewhat different and she did faint and fell to the ground Blood work completed in ED reveals a WBC of 5.2, hemoglobin of 11.7 and platelet count of 159, sodium 131, potassium 3.9, BUNs/creatinine of 32/1.55, blood glucose of 147 CT of head cervical spine completed in ED does not reveal any evidence of acute intracranial process. Acute C5 vertebral body periprostatic fracture with hardware migration of C5-C6 and C7 screws EKG interpretation: Ventricular rate 89, sinus rhythm,. 159, QRS 94, QTc 4 7. Artifact in the high lateral leads and lead III. There is a lot of artifact in aVF making interpretation slightly difficult.. No VA prolongation, no QTC prolongation, no ST or T-wave changes noted. . Overall, this EKG is nonspecific but mostly unremarkable 12/12/23 This is a pleasant 68 years old female who presents because of fall and she has some tenderness at the her neck area. She is being evaluated by orthopedic surgery team, she has history of ACDF of C4-C7 and orthopedic team are planning to do surgical revision of her ACDF procedure. Today surgery was canceled for preop cardiac evaluation. Government Professor consult called as well as neurology given her episodes of syncope. Currently patient awake alert, looks comfortable, her pain is controlled in the back of her neck. Denies chest pain or dyspnea or coughing. No change in her GI/ signs or symptoms. No new symptoms currently No headache or dizziness. No weakness or tingling or numbness She is hemodynamically stable WBC 4.2, Hemoglobin 10.4 and platelet count 139 BMP is unremarkable, creatinine 1.0. She is on IV fluid normal saline at 75 mL/h Lisinopril-hydrochlorothiazide 20-25 mg is on hold. Aspirin is on hold. Review of systems CONSTITUTIONAL: No fever, no malaise, no fatigue. HEENT: No recent visual problems or hearing problems. Denied any sore throat. GASTROINTESTINAL: No diarrhea, no nausea, no vomiting, no abdominal pain. Normoactive bowel sounds. NEUROLOGICAL: No headaches, no weakness, no numbness. HEMATOLOGICAL: Denies any bleeding or petechiae. GENITOURINARY: Denies any burning micturition, frequency, or urgency. MUSCULOSKELETAL/RHEUMATOLOGICAL: Denies any joint pain, swelling, or any muscle pain. ENDOCRINE: Denies any polyuria or polydipsia. Active Medications Generic Name Dose Route Start Last Admin Trade Name Freq PRN Reason Stop Dose Admin Acetaminophen 650 mg 12/10/23 15:15 Acetaminophen Tab 325 Mg Tab PO Q6HR PRN Mild Pain or Fever > 100.5 Hydrocodone Bitart/Acetaminophen 1 each 12/11/23 17:08 Hydrocodone/Apap 10-325mg 1 Each Tab PO Q4H PRN Pain Cyclobenzaprine HCl 10 mg 12/11/23 17:08 Cyclobenzaprine 10 Mg Tab PO TID PRN Muscle Spasm Gabapentin 600 mg 12/11/23 21:00 12/12/23 08:11 Gabapentin 300 Mg Cap PO Not Given BID [facility] Sodium Chloride 1,000 mls @ 75 mls/hr 12/10/23 15:15 12/12/23 06:04 Saline 0.9% IV Not Given .[id number] [facility] Insulin Aspart 0 unit 12/11/23 07:30 12/12/23 06:03 Insulin Aspart (Novolog) 100 Unit/Ml Vial SQ Not Given ACHS [facility] Protocol Naloxone HCl 0.2 mg 12/10/23 15:15 Naloxone 0.4 Mg/Ml 1 Ml Vial IV Q2M PRN Opioid Reversal Ondansetron HCl 4 mg 12/10/23 15:15 Ondansetron 4 Mg/2 Ml Vial IVP Q8HR PRN Nausea And Vomiting Objective - Vital Signs Vital signs: Vital Signs Temp 97.7 F 12/12/23 07:17 Pulse 87 12/12/23 07:17 Resp 17 12/12/23 07:17 BP 145/69 12/12/23 07:17 Pulse Ox 99 12/12/23 07:17 FiO2 Intake & Output 12/11/23 12/12/23 12/12/23 18:59 06:59 18:59 Intake Total 1350 Balance 1350 Intake: Intake, IV Titration 600 Amount Sodium Chloride 0.9% 1, 600 000 ml @ 75 mls/hr IV . [id number] [facility] Rx#:[id number] Oral 750 Other: Voiding Method Toilet Toilet # Voids 2 - Exam Continue your patient me about [facility] TBA to was the best trauma showed no admissions okay GENERAL: The patient is alert and oriented x3, not in any acute distress. Well developed, well nourished. -HEENT: Pupils are round and equally reacting to light. EOMI. No scleral icterus. No conjunctival pallor. Normocephalic, atraumatic. No pharyngeal erythema. No thyromegaly. Mild neck tenderness CARDIOVASCULAR: S1 and S2 present. No murmurs, rubs, or gallops. PULMONARY: Chest is clear to auscultation, no wheezing , no crackles. ABDOMEN: Soft, nontender, nondistended, normoactive bowel sounds. No palpable organomegaly. MUSCULOSKELETAL: No joint swelling or deformity. EXTREMITIES: No cyanosis, clubbing, or pedal edema. NEUROLOGICAL: Gross neurological examination did not reveal any focal deficits. SKIN: No rashes. no petechiae. - Labs CBC & Chem 7: 12/12/23 05:38 12/12/23 05:38 Labs: Abnormal Lab Results - Last 24 Hours (Table) 12/11/23 12/11/23 12/11/23 Range/Units 15:35 16:54 21:08 WBC (4.50-10.00) X 10*3/uL RBC (4.10-5.20) X 10*6/uL Hgb (12.0-15.0) g/dL Hct (37.2-46.3) % MCH (27.0-32.0) pg Plt Count (140-440) X 10*3/uL Neutrophils # (1.80-7.70) X 10*3/uL Sodium 134 L (137-145) mmol/L BUN 20 H (7-17) mg/dL Glucose 187 H (74-99) mg/dL POC Glucose (mg/dL) 174 H 162 H (70-110) mg/dL Calcium (8.7-10.3) mg/dL 12/12/23 12/12/23 12/12/23 Range/Units 05:35 05:38 05:38 WBC 4.20 L (4.50-10.00) X 10*3/uL RBC 3.23 L (4.10-5.20) X 10*6/uL Hgb 10.4 L (12.0-15.0) g/dL Hct 30.5 L (37.2-46.3) % MCH 32.2 H (27.0-32.0) pg Plt Count 139 L (140-440) X 10*3/uL Neutrophils # 1.60 L (1.80-7.70) X 10*3/uL Sodium (137-145) mmol/L BUN (7-17) mg/dL Glucose 128 H (74-99) mg/dL POC Glucose (mg/dL) 130 H (70-110) mg/dL Calcium 8.6 L (8.7-10.3) mg/dL 12/12/23 Range/Units 12:06 WBC (4.50-10.00) X 10*3/uL RBC (4.10-5.20) X 10*6/uL Hgb (12.0-15.0) g/dL Hct (37.2-46.3) % MCH (27.0-32.0) pg Plt Count (140-440) X 10*3/uL Neutrophils # (1.80-7.70) X 10*3/uL Sodium (137-145) mmol/L BUN (7-17) mg/dL Glucose (74-99) mg/dL POC Glucose (mg/dL) 148 H (70-110) mg/dL Calcium (8.7-10.3) mg/dL Assessment and Plan Assessment: 1. Acute syncope --Patient reports she has been having several near syncopal episodes daily for past few weeks; had scheduled an appointment with PCP -- CT of the head completed in ED remains unremarkable -Patient will be admitted to telemetry; we will monitor EKG, trend troponin -- Will order 2D echo; bilateral carotid Doppler, order vitamin B12 and folic acid levels, TSH -Will order orthostatic vital signs and neurochecks per protocol -Will consult cardiology and neurology for further evaluation 2. Syncope/fall with acute C5 vertebral body fracture -CT of the cervical spine reveals acute C5 vertebral body periprosthetic fracture with hardware migration of C5-C6 and C7 screws -- Patient has been evaluated by orthopedic surgery, planning surgical intervention -- Cardiology is consulted for surgical clearance 3. Hypertension; patient takes Zestoretic 2024 1 tablet nightly 4. Diabetes mellitus with long-term insulin use; we will monitor Accu-Cheks before every meal and at bedtime with insulin sliding scale; patient takes insulin NPH along with Mounjaro 7.5 mg; we will hold off while inpatient 5. Neuropathy; continue with home dose of Neurontin DVT prophylaxis; SCDs only given possible surgical procedure in next 12 to 24 hours CODE STATUS; full code
--- NOTE | 2023-12-12 12:44 | P.PN ---
Progress Note - Text Progress Note Date: 12/12/23 Patient seen and examined this morning. The localization with the patient about her current condition as well as potential outcomes treatment options risks and benefits. The patient is neurovascularly neurologically intact this time doing fairly well. She states really no pain in her neck. She states that her arm still feel better overall. We did have her on for today for surgical intervention in front of her neck for revision in the on for the posterior aspect of her neck. After discussing with her at length as well as examining her patient was at the time awaiting cardiac clearance for surgery ileus sided to postpone surgery in favor of a Hard cervical collar. I did dis cuss with her the risks and benefits of this as well as potential of further displacement of her hardware as well as neurologic deficit and progression of her neurologic issues she understands. She would like to try to avoid surgical intervention if possible. I discussed with her that if anything changes over the next week or 2 with her plate or neurologic status that we would be quick to revisit surgical intervention in the form of anteriorly followed by posterior C2 to T2. She understands. Since our conversation she did get cleared by cardiology. We will have another conversation with her tomorrow about her desires. We do stylus slot on for her. We will see how she does with her hard cervical collar. Up until now she has been relatively compliant with this however she was not wearing it when she fell. Percent is in the room with her today but we discussed all this and they are going to discuss amongst themselves as well what she would like to do proceed and pursue. We discussed all risks and benefits of everything as well as the plan for either surgical or nonsurgical intervention and she is comfortable with this. We will speak again here in the next day or so and see how she is doing her desires.
--- NOTE | 2023-12-12 14:52 | P.CRDCN ---
History of Present Illness Consult date: 12/12/23 Consult reason: sycope Chief complaint: syncope History of present illness: History of present illness: Patient is a pleasant 68-year-old female with significant past medical history of diabetes type 2, hypertension, recent cervical spine fusion who presents with complaints of dizziness and syncope. She does not have a outsole cutter machine. She reports her mother of it AAA at age 55 and her father in his 70s of heart issues. She does not smoke or drink alcohol. She reports that she has been on Monjaro for 8 months and has lost 45 lbs. she had undergone cervical spine fusion November 08, 2023 and reports that after that she did suffer a fall and her hardware needs fixed and is awaiting surgery for this. She has felt more dizzy over the past 3-4 weeks. She states this occurs a couple times a week and she feels like she will pass out. She did actually have a syncopal episode prior to admission. She denies any recent changes in her medications. She denies any chest pain or pressure. No shortness of breath. She has not had any prior cardiac workup. She has not had any further dizzy spells during her admission. EKG shows sinus rhythm, moderate ST depression. Carotid ultrasound shows less than 50% stenosis of bilateral ICA. REVIEW OF SYSTEMS: No fever or chills. No cough or expectoration. No d iaphoresis. Patient denies headache, blurred vision, double vision. Patient denies any stomach discomfort. No nausea, vomiting. No hematochezia. No hematemesis. Denies any black stools or blood in his stools. Denies dysuria or hematuria. No muscle weakness or numbness. No chest pain or pressure. Reports dizziness, near-syncope, syncope. PHYSICAL EXAMINATION: This is a 68-year-old female in no apparent distress at the time of my examination. HEENT: Head is atraumatic, normocephalic. Pupils are equal, round. Sclerae anicteric. Conjunctivae are clear. Mucous membranes of the mouth are moist. Neck is supple. There is no jugular venous distention. No carotid bruit is heard. CHEST EXAMINATION: Lungs are clear to auscultation. No chest wall tenderness is noted on palpation or with deep breathing. HEART EXAMINATION: Heart regular rate and rhythm. S1, S2 heard. No murmurs, gallops or rub. ABDOMEN: Soft, nontender. Bowel sounds are heard. EXTREMITIES: 2+ peripheral pulses with trace peripheral edema and no calf tenderness noted. NEUROLOGIC EXAMINATION: Patient is awake, alert and oriented x3. IMPRESSION AND PLAN: Hypertension Diabetes type 2 Recent cervical spine fusion who needs redo Preoperative examination Dizziness Syncope PLAN: She is cleared for surgery from a cardiac standpoint. She has lost a significant amount of weight and may need adjustment in blood pressure medic ations. We will check orthostatic vital signs. We will check echocardiogram however this can be done after surgery if needed. Discussed stress testing likely as an outpatient once she has recovered from surgery. We will follow. I am dictating on behalf of Dr. Reji Brandt's history/physical and assessment/plan. Past Medical History Past Medical History: Diabetes Mellitus, Fibromyalgia, Hypertension, Osteoarthritis (OA), Thyroid Disorder Additional Past Medical History / Comment(s): fibromyalgia History of Any Multi-Drug Resistant Organisms: None Reported Past Surgical History: Cholecystectomy, Orthopedic Surgery, Tubal Ligation Additional Past Surgical History / Comment(s): Attempted tubal ligation reversal. Colonoscopy Past Anesthesia/Blood Transfusion Reactions: No Reported Reaction Additional Past Anesthesia/Blood Transfusion Reaction / Comment(s): Pt has never recieved blood. Past Psychological History: No Psychological Hx Reported Additional Psychological History / Comment(s): Pt resides with her spouse, cat and dog. She is independent. She has a sugiboot for her L foot. She just bought a kneeling walker to L foot. Smoking Status: Former smoker Past Alcohol Use History: None Reported Additional Past Alcohol Use History / Comment(s): Pt states she started smoking at age 16 and quit in 2001. Past Drug Use History: None Reported - Past Family History Sister(s) Family Medical History: Cancer Additional Family Medical History / Comment(s): Kidney cancer in both kidneys, thyroid cancer. Another sister had breast cancer. Father Family Medical History: Diabetes Mellitus Additional Family Medical History / Comment(s): Heart problems, . Mother Additional Family Medical History / Comment(s): Mother of aortic aneurysm rupture at age 55 yrs. Medications and Allergies Home Medications Medication Instructions Recorded Confirmed Type Lisinopril-Hctz 20-25 mg 1 tab PO HS 01/15/15 12/10/23 History [Zestoretic 20-25] Aspirin [Adult Low Dose Aspirin EC] 81 mg PO DAILY 11/04/23 12/10/23 History Insulin NPH Hum/Reg Insulin Hm 20 unit SQ AC-BRKFST 11/04/23 12/10/23 History [NovoLIN 70-30 100 Unit/ml Vial] Tirzepatide [Mounjaro] 7.5 mg SQ Q14D 11/04/23 12/10/23 History Gabapentin 600 mg PO BID #60 tab 11/09/23 12/10/23 Rx Cyclobenzaprine [Flexeril] 10 mg PO TID PRN 12/10/23 12/10/23 History Ergocalciferol [Vitamin D2 (1250 1,250 mcg PO GARVIN 12/10/23 12/10/23 History Mcg = [id number] Iu)] HYDROcodone/APAP 10-325MG [[place] 1 tab PO Q4H PRN 12/10/23 12/10/23 History 10-325] Insulin NPH Hum/Reg Insulin Hm 10 unit SQ AC-SUPPER 12/10/23 12/10/23 History [NovoLIN 70-30 100 Unit/ml Vial] Insulin NPH Hum/Reg Insulin Hm 30 unit SQ AC-LUNCH 12/10/23 12/10/23 History [NovoLIN 70-30 100 Unit/ml Vial] Zolpidem [Ambien] 10 mg PO HS PRN 12/10/23 12/10/23 History Allergies Allergy/AdvReac Type Severity Reaction Status Date / Time No Known Allergies Allergy Verified 12/10/23 16:59 Physical Exam Vitals: Vital Signs Temp Pulse Pulse Resp BP Pulse Ox 12/12/23 13:42 98.0 F 84 17 150/69 98 12/12/23 07:17 97.7 F 87 17 145/69 99 12/12/23 06:18 82 17 12/12/23 04:18 79 17 12/12/23 02:18 84 12/12/23 00:22 98.0 F 79 19 150/65 99 12/11/23 22:18 80 19 95 12/11/23 20:00 18 12/11/23 19:38 98.3 F 85 18 173/73 98 12/11/23 15:27 97.9 F 94 16 144/68 97 Intake and Output 12/11/23 12/12/23 12/12/23 22:59 06:59 14:59 Intake Total 1350 Balance 1350 Intake: Intake, IV Titration 600 Amount Sodium Chloride 0.9% 1, 600 000 ml @ 75 mls/hr IV . [id number] [facility] Rx#:[id number] Oral 750 Other: Voiding Method Toilet # Voids 2 Results 12/12/23 05:38 12/12/23 05:38 Cardiac Enzymes 12/11/23 Range/Units 17:54 Troponin I <0.012 (0.000-0.034) ng/mL CBC 12/12/23 Range/Units 05:38 WBC 4.20 L (4.50-10.00) X 10*3/uL RBC 3.23 L (4.10-5.20) X 10*6/uL Hgb 10.4 L (12.0-15.0) g/dL Hct 30.5 L (37.2-46.3) % Plt Count 139 L (140-440) X 10*3/uL Comprehensive Metabolic Panel 12/11/23 12/12/23 Range/Units 15:35 05:38 Sodium 134 L 136 (137-145) mmol/L Potassium 4.0 3.8 (3.5-5.1) mmol/L Chloride 103 103 (98-107) mmol/L Carbon Dioxide 25 23.0 (22-30) mmol/L BUN 20 H 13.3 (7-17) mg/dL Creatinine 1.01 1.0 (0.52-1.04) mg/dL Glucose 187 H 128 H (74-99) mg/dL Calcium 9.0 8.6 L (8.4-10.2) mg/dL Current Medications Generic Name Dose Route Start Last Admin Trade Name Freq PRN Reason Stop Dose Admin Acetaminophen 650 mg 12/10/23 15:15 Acetaminophen Tab 325 Mg Tab PO Q6HR PRN Mild Pain or Fever > 100.5 Hydrocodone Bitart/Acetaminophen 1 each 12/11/23 17:08 Hydrocodone/Apap 10-325mg 1 Each Tab PO Q4H PRN Pain Cyclobenzaprine HCl 10 mg 12/11/23 17:08 Cyclobenzaprine 10 Mg Tab PO TID PRN Muscle Spasm Gabapentin 600 mg 12/11/23 21:00 12/12/23 08:11 Gabapentin 300 Mg Cap PO Not Given BID [facility] Sodium Chloride 1,000 mls @ 75 mls/hr 12/10/23 15:15 12/12/23 06:04 Saline 0.9% IV Not Given .[id number] [facility] Insulin Aspart 0 unit 12/11/23 07:30 12/12/23 12:39 Insulin Aspart (Novolog) 100 Unit/Ml Vial SQ Not Given ACHS [facility] Protocol Naloxone HCl 0.2 mg 12/10/23 15:15 Naloxone 0.4 Mg/Ml 1 Ml Vial IV Q2M PRN Opioid Reversal Ondansetron HCl 4 mg 12/10/23 15:15 Ondansetron 4 Mg/2 Ml Vial IVP Q8HR PRN Nausea And Vomiting Intake and Output 12/11/23 12/12/23 12/12/23 22:59 06:59 14:59 Intake Total 1350 Balance 1350 Intake: Intake, IV Titration 600 Amount Sodium Chloride 0.9% 1, 600 000 ml @ 75 mls/hr IV . [id number] [facility] Rx#:[id number] Oral 750 Other: Voiding Method Toilet # Voids 2 12/12/23 05:38 12/12/23 05:38
[2023-12-12 16:40] LABS: Glucose,Whole Blood 216 mg/dL (70-110)
--- NOTE | 2023-12-12 16:55 | P.CNNES ---
History of Present Illness Consult date: 12/12/23 Requesting physician: Aga Nicholson Reason for Consult: Syncopal episodes History of Present Illness: Patient is a 68-year-old right-handed female came to the hospital 2 days ago, 12/10/2023 at 1:28 PM for a syncopal spell. Patient states that for the last 3 to 4 weeks, she has been noticing dizziness/lightheadedness on standing up. It does not happen every time, but quite often. Her vision gets hutson, she closes her eyes and she is okay after less than a minute. Never happens in sitting or laying position. On 12/10/2023 her brother took her to a [employer] store. He parked the car next to the vestibule, and she got out of the truck and she started having similar symptoms of lightheadedness. She wanted to get hold of the cart which was only a few steps away. She did get to the cart, but she blacked out, and fell, hitting her head onto the another cart next to it. She was out for just a brief moment. She did not had any seizure-like activity, no tongue bite or loss of control of urine. People came around, and she stood up fine. Because she had recent neck surgery on 11/08/2023, therefore she decided to come to the ER to be checked out. Patient denies any focal symptoms whatsoever. Patient states that she had a similar syncopal spell few days ago, when she fell and caught against a car, but she did not fall to the ground. Cardiology has seen the patient, who believe that patient has been losing weight, therefore the blood pressure medication has been too much for her and she may have some orthostatics. Patient states that since she is in the hospital, her blood pressure medications have been discontinued and she is feeling better and is not feeling dizzy lightheaded anymore. EKG showed sinus rhythm. CT head revealed no evidence for acute intracranial process. I personally reviewed CT head, agree with the findings. CT of the cervical spine revealed acute C5 vertebral body periprosthetic fracture with hardware migration of C5-C6 and C7 screws. Patient has smoked <1 pack/day for 20 years, quit in 2001. Denies any alcohol use. Patient has history of diabetes for 30 years also has hypertension but denies hyperlipidemia. Review of Systems All pertinent positives and negatives mentioned in HPI, otherwise negative. Past Medical History Past Medical History: Diabetes Mellitus, Fibromyalgia, Hypertension, Osteoarthritis (OA), Thyroid Disorder Additional Past Medical History / Comment(s): fibromyalgia History of Any Multi-Drug Resistant Organisms: None Reported Past Surgical History: Cholecystectomy, Orthopedic Surgery, Tubal Ligation Additional Past Surgical History / Comment(s): Attempted tubal ligation reversal. Colonoscopy Past Anesthesia/Blood Transfusion Reactions: No Reported Reaction Additional Past Anesthesia/Blood Transfusion Reaction / Comment(s): Pt has never recieved blood. Past Psychological History: No Psychological Hx Reported Additional Psychological History / Comment(s): Pt resides with her spouse, cat and dog. She is independent. She has a sugiboot for her L foot. She just bought a kneeling walker to L foot. Smoking Status: Former smoker Past Alcohol Use History: None Reported Additional Past Alcohol Use History / Comment(s): Pt states she started smoking at age 16 and quit in 2001. Past Drug Use History: None Reported - Past Family History Sister(s) Family Medical History: Cancer Additional Family Medical History / Comment(s): Kidney cancer in both kidneys, thyroid cancer. Another sister had breast cancer. Father Family Medical History: Diabetes Mellitus Additional Family Medical History / Comment(s): Heart problems, . Mother Additional Family Medical History / Comment(s): Mother of aortic aneurysm rupture at age 55 yrs. Medications and Allergies Home Medications Medication Instructions Recorded Confirmed Type Lisinopril-Hctz 20-25 mg 1 tab PO HS 01/15/15 12/10/23 History [Zestoretic 20-25] Aspirin [Adult Low Dose Aspirin EC] 81 mg PO DAILY 11/04/23 12/10/23 History Insulin NPH Hum/Reg Insulin Hm 20 unit SQ AC-BRKFST 11/04/23 12/10/23 History [NovoLIN 70-30 100 Unit/ml Vial] Tirzepatide [Mounjaro] 7.5 mg SQ Q14D 11/04/23 12/10/23 History Gabapentin 600 mg PO BID #60 tab 11/09/23 12/10/23 Rx Cyclobenzaprine [Flexeril] 10 mg PO TID PRN 12/10/23 12/10/23 History Ergocalciferol [Vitamin D2 (1250 1,250 mcg PO GARVIN 12/10/23 12/10/23 History Mcg = 15362 Iu)] HYDROcodone/APAP 10-325MG [[place] 1 tab PO Q4H PRN 12/10/23 12/10/23 History 10-325] Insulin NPH Hum/Reg Insulin Hm 10 unit SQ AC-SUPPER 12/10/23 12/10/23 History [NovoLIN 70-30 100 Unit/ml Vial] Insulin NPH Hum/Reg Insulin Hm 30 unit SQ AC-LUNCH 12/10/23 12/10/23 History [NovoLIN 70-30 100 Unit/ml Vial] Zolpidem [Ambien] 10 mg PO HS PRN 12/10/23 12/10/23 History Allergies Allergy/AdvReac Type Severity Reaction Status Date / Time No Known Allergies Allergy Verified 12/10/23 16:59 Physical Examination - Vital Signs Vital Signs: Vital Signs Temp Pulse Pulse Resp BP Pulse Ox 12/12/23 13:42 98.0 F 84 17 150/69 98 12/12/23 07:17 97.7 F 87 17 145/69 99 12/12/23 06:18 82 17 12/12/23 04:18 79 17 12/12/23 02:18 84 12/12/23 00:22 98.0 F 79 19 150/65 99 12/11/23 22:18 80 19 95 12/11/23 20:00 18 12/11/23 19:38 98.3 F 85 18 173/73 98 Intake and Output 12/12/23 12/12/23 12/12/23 06:59 14:59 22:59 Other: Voiding Method Toilet # Voids 2 Patient is an elderly female, very pleasant, in no acute distress. Patient is alert awake oriented to time place and person. Speech and language functions are normal. Patient can name and repeat very well. No aphasia or dysarthria. Attention, concentration and fund of knowledge is adequate. On cranial nerve examination, pupils are equal, round and reacting to light, visual zapata are full on confrontation, with no neglect on double simultaneous stimulation. Extraocular muscles are intact with no nystagmus. Face is symmetric, tongue protrudes to the midline. Palatal elevation and sensation normal, hearing and shoulder shrug normal, facial sensation normal. On muscle strength testing, there is no pronator drift and the strength is normal in arms and legs distally and proximally. Deep tendon reflexes are symmetric but very diminished and plantars are downgoing bilaterally. Sensory to touch is equal with no neglect on double simultaneous stimulation. Cerebellar function showed no ataxia for [id number] testing. No dysdiadochokinesia. No ataxia for nuim-ho-cquc testing on either side. Tone and bulk of muscles normal. Gait deferred.. On general examination, there is no carotid bruit or murmur, S1-S2 audible. Chest is clear on consultation. Abdomen is soft nontender. No organomegaly, bowel sounds present. Peripheral pulses are present. No peripheral edema. Results - Laboratory Findings CBC and BMP: 12/12/23 05:38 12/12/23 05:38 Abnormal Lab Findings: Abnormal Labs 12/10/23 12/10/23 12/10/23 14:42 14:42 20:21 WBC RBC 3.59 L Hgb Hct MCH Plt Count Neutrophils # Sodium 131 L BUN 32 H Creatinine 1.55 H Glucose 147 H POC Glucose (mg/dL) 225 H Calcium 12/11/23 12/11/23 12/11/23 11:45 15:35 16:54 WBC RBC Hgb Hct MCH Plt Count Neutrophils # Sodium 134 L BUN 20 H Creatinine Glucose 187 H POC Glucose (mg/dL) 134 H 174 H Calcium 12/11/23 12/12/23 12/12/23 21:08 05:35 05:38 WBC 4.20 L RBC 3.23 L Hgb 10.4 L Hct 30.5 L MCH 32.2 H Plt Count 139 L Neutrophils # 1.60 L Sodium BUN Creatinine Glucose POC Glucose (mg/dL) 162 H 130 H Calcium 12/12/23 12/12/23 05:38 12:06 WBC RBC Hgb Hct MCH Plt Count Neutrophils # Sodium BUN Creatinine Glucose 128 H POC Glucose (mg/dL) 148 H Calcium 8.6 L Assessment and Plan Assessment: * Syncopal spell, likely due to orthostasis. Patient has been noticing presyncopal symptoms with dizziness, lightheadedness on standing up, off and on for last 3 to 4 weeks. * Acute C5 vertebral body, periprosthetic fracture with hardware migration of C5-C6 and C7 screws. This resulted from fall as above. * Recent history of anterior cervical arthrodesis C4-5, C5-6, C6-7 on 11/08/2023 * Hypertension * Diabetes * Ex tobacco use Plan: * Patient probably has syncopal spell from orthostatic hypotension. Patient has been feeling positional dizziness/lightheadedness on standing up off and on for last few weeks. Her symptoms have resolved, since blood pressure medications have been put on hold since she arrived to the hospital. * Agree with checking orthostatics and a 2D echo. Cardiology on board. * Carotid Doppler revealed less than 50% stenosis of bilateral carotid bi furcations. Left vertebral antegrade flow. Right vertebral not well- visualized. * Patient's neurological examination is normal, with no focal deficits noted. Orthopedic surgery on board for cervical fracture. Possible surgery on . * Neurologically, no other workup indicated. * Thank you for the consultation.
[2023-12-12 20:44] LABS: Glucose,Whole Blood 205 mg/dL (70-110)
[2023-12-13 06:14] LABS: Glucose,Whole Blood 134 mg/dL (70-110)
[2023-12-13 08:57] LABS: Basophils # (A) 0.04 X 10*3/uL (0.00-0.10); Eosinophils # (A) 0.25 X 10*3/uL (0.04-0.35); Eosinophils % (A) 6.3 %; HCT 31.1 % (37.2-46.3); HGB 10.2 g/dL (12.0-15.0); Immature Grans, Automated 0 %; Lymphocytes # (A) 1.77 X 10*3/uL (0.90-5.00); Lymphocytes % (A) 44.6 %; MCHC 32.8 g/dL (32.0-37.0); MCV 94.5 FL (80.0-97.0); Mean Platelet Volume 10.7 FL (9.5-12.2); Monocytes # (A) 0.49 X 10*3/uL (0.20-1.00); Monocytes % (A) 12.3 %; NRBC Per 100 WBC 0 X 10*3/uL (0.00-0.01); Neutrophils # (A) 1.42 X 10*3/uL (1.80-7.70); Neutrophils % (A) 35.8 %; Platelet Count 120 X 10*3/uL (140-440); RBC 3.29 X 10*6/uL (4.10-5.20); RDW 13.3 % (11.5-14.5); WBC 3.97 X 10*3/uL (4.50-10.00)
[2023-12-13 10:24] LABS: BUN/Creat Ratio 15.56 Ratio (12.00-20.00); Calcium 8.5 mg/dL (8.7-10.3); Carbon Dioxide 22.8 mmol/L (21.6-31.8); Chloride 104 mmol/L (96-109); Glucose 117 mg/dL (70-110); Potassium 3.7 mmol/L (3.5-5.5); Sodium 137 mmol/L (135-145)
[2023-12-13 11:06] LABS: Glucose,Whole Blood 161 mg/dL (70-110)
--- NOTE | 2023-12-13 11:10 | P.PN ---
Subjective Progress Note Date: 12/13/23 Principal diagnosis: Fall with trauma Hardware failure cervical spine Patient seen and examined this morning. Patient is resting comfortably in bed. Patient currently denies any cervical pain or radiculopathy including numbness or tingling to the bilateral upper extremities. She is wanting to wait for surgical intervention till after a family event, Dr. Lr feels that this is reasonable. Prescription for [place] J collar will be placed in patient's chart, she is to wear this at all times while up. She may remove collar for sleeping or for showers. Patient will follow-up in office in 1 week to schedule surgical intervention. No acute concerns. Objective - Vital Signs Vital signs: Vital Signs Temp 98.4 F 12/13/23 07:21 Pulse 82 12/13/23 07:21 Resp 16 12/13/23 07:21 BP 126/56 12/13/23 07:21 Pulse Ox 97 12/13/23 07:21 FiO2 Intake & Output 12/12/23 12/13/23 12/13/23 18:59 06:59 18:59 Other: Voiding Method Toilet Toilet # Voids 4 2 - Exam Inspection: Negative for any open fractures, ecchymosis, significant erythema/ulcers. Sensation: Sensation is equal, symmetric, bilaterally intact throughout the upper and lower extremities Palpation: Nontender to palpation throughout bilateral upper and lower extremities and throughout spine exam Range of motion: Patient does have full range of motion bilateral upper and lower extremities on exam Motor: 5/5 in all major motor groups in the bilateral upper and lower extremities Special tests: Negative Homans bilaterally. Negative Raman bilaterally. Negative clonus bilaterally. Neurovascular: Radial pulse intact, 2+ bilaterally. Cap refill under 3 seconds in digits upper extremities. - Labs CBC & Chem 7: 12/13/23 04:37 12/13/23 04:37 Labs: Abnormal Lab Results - Last 24 Hours (Table) 12/12/23 12/12/23 12/12/23 Range/Units 05:38 05:38 12:06 WBC 4.20 L (4.50-10.00) X 10*3/uL RBC 3.23 L (4.10-5.20) X 10*6/uL Hgb 10.4 L (12.0-15.0) g/dL Hct 30.5 L (37.2-46.3) % MCH 32.2 H (27.0-32.0) pg Plt Count 139 L (140-440) X 10*3/uL Neutrophils # 1.60 L (1.80-7.70) X 10*3/uL Glucose 128 H (70-110) mg/dL POC Glucose (mg/dL) 148 H (70-110) mg/dL Calcium 8.6 L (8.7-10.3) mg/dL 12/12/23 12/12/23 12/13/23 Range/Units 16:39 20:42 06:12 WBC (4.50-10.00) X 10*3/uL RBC (4.10-5.20) X 10*6/uL Hgb (12.0-15.0) g/dL Hct (37.2-46.3) % MCH (27.0-32.0) pg Plt Count (140-440) X 10*3/uL Neutrophils # (1.80-7.70) X 10*3/uL Glucose (70-110) mg/dL POC Glucose (mg/dL) 216 H 205 H 134 H (70-110) mg/dL Calcium (8.7-10.3) mg/dL Assessment and Plan Assessment: Hardware failure anterior cervical spine Status post fall from standing History of previous ACDF C4-C7 Other medical comorbidities Plan: -Appreciate distributed energy systems consultant and team management. -Activity: Ambulate QID, OOB all meals, up and about, limit lifting bending twisting to less than 5 lbs. Use walker or cane if needed for stability. -Daily PT/OT, increase ambulation strength and balance. -[place] J collar is to be worn at all times, may remove for sleep or showers -Pain control: Adequate at this time -Meds: reviewed -GI ppx: senna, Miralax -Encourage IS 10x/hr -Dispo: Discharge home today. *I reviewed and discussed this case with my attending Dr. Lr, whom has reviewed this chart and films and is in agreement with assessment and plan of care as outlined above. I have personally seen and examined the patient, performed the documentation and the assessment and plan as written. Number of minutes spent on the visit: 20m.
--- NOTE | 2023-12-13 11:11 | P.DS ---
Providers Date of admission: 12/10/23 15:15 Expected date of discharge: 12/13/23 Attending physician: Luc Lr, Consults: 12/10/23 15:18 Consult Physician Routine Consulting Provider: Nilay Ferro Consult Reason/Comments: medical management Do you want consulting provider notified?: Yes 12/11/23 16:59 Consult Physician Routine Consulting Provider: Reji Brandt Consult Reason/Comments: Syncopal episodes Do you want consulting provider notified?: Yes 12/11/23 17:01 Consult Physician Routine Consulting Provider: Krista Fang Consult Reason/Comments: Syncopal episodes Do you want consulting provider notified?: Yes Primary care physician: Nilay Ferro [facility] Course: Hospital Course: The patient was evaluated and found to have the diagnosis of hardware failure. They underwent appropriate care and while on the floor they worked with physical therapy, occupational therapy and nursing. Their pain was well controlled through their stay and they were started on appropriate medications, DVT ppx modalities, activity and dietary needs. Daily labs were monitored closely, and transfusions were only used when necessary. Medicine as well as other consulting services have made their input and have helped with our team approach and multidisciplinary care. PT milestones have been met and passed and they have made the recommendation of home for this patient and treating providers agree with this care path. The patient will be discharged home with appropriate medications, instructions and follow-up information and in stable condition. Patient Condition at Discharge: Fair Plan - Discharge Summary Discharge Rx Participant: Yes New Discharge Prescriptions: New Cyclobenzaprine [Flexeril] 10 mg PO TID PRN #40 tab PRN Reason: Muscle Spasm HYDROcodone/APAP 10-325MG [[place] 10-325] 1 tab PO Q4-6H PRN #40 tab PRN Reason: Pain No Action Lisinopril-Hctz 20-25 mg [Zestoretic 20-25] 1 tab PO HS Tirzepatide [Mounjaro] 7.5 mg SQ Q14D Insulin NPH Hum/Reg Insulin Hm [NovoLIN 70-30 100 Unit/ml Vial] 10 unit SQ AC-SUPPER Zolpidem [Ambien] 10 mg PO HS PRN PRN Reason: Insomnia HYDROcodone/APAP 10-325MG [[place] 10-325] 1 tab PO Q4H PRN PRN Reason: Pain Insulin NPH Hum/Reg Insulin Hm [NovoLIN 70-30 100 Unit/ml Vial] 20 unit SQ AC-BRKFST Aspirin [Adult Low Dose Aspirin EC] 81 mg PO DAILY Gabapentin 600 mg PO BID #60 tab Ergocalciferol [Vitamin D2 (1250 Mcg = 18107 Iu)] 1,250 mcg PO GAVRIN Insulin NPH Hum/Reg Insulin Hm [NovoLIN 70-30 100 Unit/ml Vial] 30 unit SQ AC-LUNCH Cyclobenzaprine [Flexeril] 10 mg PO TID PRN PRN Reason: Muscle Spasm Discharge Medication List Lisinopril-Hctz 20-25 mg [Zestoretic 20-25] 1 tab PO HS 01/15/15 [History] Aspirin [Adult Low Dose Aspirin EC] 81 mg PO DAILY 11/04/23 [History] Insulin NPH Hum/Reg Insulin Hm [NovoLIN 70-30 100 Unit/ml Vial] 20 unit SQ AC- BRKFST 11/04/23 [History] Tirzepatide [Mounjaro] 7.5 mg SQ Q14D 11/04/23 [History] Gabapentin 600 mg PO BID #60 tab 11/09/23 [Rx] Cyclobenzaprine [Flexeril] 10 mg PO TID PRN 12/10/23 [History] Ergocalciferol [Vitamin D2 (1250 Mcg = 01485 Iu)] 1,250 mcg PO GARVIN 12/10/23 [History] HYDROcodone/APAP 10-325MG [[place] 10-325] 1 tab PO Q4H PRN 12/10/23 [History] Insulin NPH Hum/Reg Insulin Hm [NovoLIN 70-30 100 Unit/ml Vial] 10 unit SQ AC- SUPPER 12/10/23 [History] Insulin NPH Hum/Reg Insulin Hm [NovoLIN 70-30 100 Unit/ml Vial] 30 unit SQ AC- LUNCH 12/10/23 [History] Zolpidem [Ambien] 10 mg PO HS PRN 12/10/23 [History] Cyclobenzaprine [Flexeril] 10 mg PO TID PRN #40 tab 12/13/23 [Rx] HYDROcodone/APAP 10-325MG [[place] 10-325] 1 tab PO Q4-6H PRN #40 tab 12/13/23 [Rx] Follow up Appointment(s)/Referral(s): Nilay Ferro DO [Primary Care Provider] - 1-2 days Activity/Diet/Wound Care/Special Instructions: Patient to wear [place] J collar at all times, may remove to sleep or shower. Ambulate with walker as needed, do not fall. Follow up with Dr. Lr within 1 week.
--- NOTE | 2023-12-13 11:28 | P.PN ---
Subjective Progress Note Date: 12/13/23 Consult reason: sycope Chief complaint: syncope History of present illness: History of present illness: Patient is a pleasant 68-year-old female with significant past medical history of diabetes type 2, hypertension, recent cervical spine fusion who presents with complaints of dizziness and syncope. 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 She reports her mother of it AAA at age 55 and her father in his 70s of heart issues. She does not smoke or drink alcohol. She reports that she has been on Monjaro for 8 months and has lost 45 lbs. she had undergone cervical spine fusion November 08, 2023 and reports that after that she did suffer a fall and her hardware needs fixed and is awaiting surgery for this. She has felt more dizzy over the past 3-4 weeks. She states this occurs a couple times a week and she feels like she will pass out. She did actually have a syncopal episode prior to admission. She denies any recent changes in her medications. She denies any chest pain or pressure. No shortness of breath. She has not had any prior cardiac workup. She has not had any further dizzy spells during her admission. EKG shows sinus rhythm, moderate ST depression. Carotid ultrasound shows less than 50% stenosis of bilateral ICA. 12/12 Patient is seen today in follow-up. No complaints of chest pain no shortness of breath, no syncopal episodes. She is scheduled for discharge home today. We are waiting on echocardiogram which will be obtained today. Blood pressure 126/56, heart rate 82, pulse ox 97% on room air. Laboratory studies: WBC 3.9, hemoglobin 10.2, platelet count 120. Potassium 3.7, creatinine 0.9. There is no plan for surgical intervention at this time but will be scheduled following outpatient appointment. Orthostatic vital signs were positive Echocardiogram luminary reveals normal EF PHYSICAL EXAMINATION: This is a 68-year-old female in no apparent distress at the time of my examination. HEENT: Head is atraumatic, normocephalic. Pupils are equal, round. Sclerae anicteric. Conjunctivae are clear. Mucous membranes of the mouth are moist. Neck is supple. There is no jugular venous distention. No carotid bruit is heard. CHEST EXAMINATION: Lungs are clear to auscultation. No chest wall tenderness is noted on palpation or with deep breathing. HEART EXAMINATION: Heart regular rate and rhythm. S1, S2 heard. No murmurs, gallops or rub. ABDOMEN: Soft, nontender. Bowel sounds are heard. EXTREMITIES: 2+ peripheral pulses with trace peripheral edema and no calf tenderness noted. NEUROLOGIC EXAMINATION: Patient is awake, alert and oriented x3. IMPRESSION AND PLAN: Hypertension Diabetes type 2 Recent cervical spine fusion who needs redo Preoperative examination Dizziness Syncope PLAN: She is cleared for surgery from a cardiac standpoint. Hold home dose of lisinopril/hydrochlorothiazide until followed up outpatient with PCP Discussed stress testing likely as an outpatient once she has recovered from surgery. Patient is cleared for discharge and may follow-up with Dr. Brandt in 3 weeks. Nurse practitioner note has been reviewed, I agree with documented findings and plan of care. Patient was seen and examined. Objective - Vital Signs Vital signs: Vital Signs Temp 98.4 F 12/13/23 07:21 Pulse 82 12/13/23 07:21 Resp 16 12/13/23 07:21 BP 126/56 12/13/23 07:21 Pulse Ox 97 12/13/23 07:21 FiO2 Intake & Output 12/12/23 12/13/23 12/13/23 18:59 06:59 18:59 Other: Voiding Method Toilet Toilet # Voids 4 2 - Labs CBC & Chem 7: 12/13/23 04:37 12/13/23 04:37 Labs: Abnormal Lab Results - Last 24 Hours (Table) 12/12/23 12/12/23 12/12/23 Range/Units 05:38 05:38 12:06 WBC 4.20 L (4.50-10.00) X 10*3/uL RBC 3.23 L (4.10-5.20) X 10*6/uL Hgb 10.4 L (12.0-15.0) g/dL Hct 30.5 L (37.2-46.3) % MCH 32.2 H (27.0-32.0) pg Plt Count 139 L (140-440) X 10*3/uL Neutrophils # 1.60 L (1.80-7.70) X 10*3/uL Glucose 128 H (70-110) mg/dL POC Glucose (mg/dL) 148 H (70-110) mg/dL Calcium 8.6 L (8.7-10.3) mg/dL 12/12/23 12/12/23 12/13/23 Range/Units 16:39 20:42 04:37 WBC 3.97 L (4.50-10.00) X 10*3/uL RBC 3.29 L (4.10-5.20) X 10*6/uL Hgb 10.2 L (12.0-15.0) g/dL Hct 31.1 L (37.2-46.3) % MCH (27.0-32.0) pg Plt Count 120 L (140-440) X 10*3/uL Neutrophils # 1.42 L (1.80-7.70) X 10*3/uL Glucose (70-110) mg/dL POC Glucose (mg/dL) 216 H 205 H (70-110) mg/dL Calcium (8.7-10.3) mg/dL 12/13/23 Range/Units 06:12 WBC (4.50-10.00) X 10*3/uL RBC (4.10-5.20) X 10*6/uL Hgb (12.0-15.0) g/dL Hct (37.2-46.3) % MCH (27.0-32.0) pg Plt Count (140-440) X 10*3/uL Neutrophils # (1.80-7.70) X 10*3/uL Glucose (70-110) mg/dL POC Glucose (mg/dL) 134 H (70-110) mg/dL Calcium (8.7-10.3) mg/dL
[2023-12-13 14:22] VITALS: BP 150/90; PULSE 87; RESP 17; TEMP 97.7
--- NOTE | 2023-12-13 15:58 | P.PN ---
Subjective Progress Note Date: 12/13/23 Ambulating, tolerating exertion well. Home medication -Zestoretic held in lieu of patient has lost greater than 40 pounds in the last 8 months. Denies chest pain, palpitations or shortness of breath. Denies lightheadedness dizziness or focal deficits. Vital signs stable. Afebrile, normal WBC. Hemoglobin 10.2, platelets 120, sodium 137, potassium 3.7, renal function stable, blood sugars better controlled. Surgical intervention to be rescheduled outpatient. EKG reporting sinus rhythm with moderate ST depression.echo completed with results pending. Cardiology recommending outpatient stress test possibly, post surgical recovery. Pain controlled, denies numbness or tingling to lower extremities. Objective - Vital Signs Vital signs: Vital Signs Temp 98.4 F 12/13/23 07:21 Pulse 82 12/13/23 08:00 Resp 16 12/13/23 08:00 BP 126/56 12/13/23 07:21 Pulse Ox 97 12/13/23 07:21 FiO2 Intake & Output 12/12/23 12/13/23 12/13/23 18:59 06:59 18:59 Other: Voiding Method Toilet Toilet Toilet # Voids 4 2 - Exam PHYSICAL EXAM: VITAL SIGNS: [As above] GENERAL: Alert and oriented x 3, no acute distress HEENT: Sitting up at bedside. Conjunctivae normal. eyes normal. NECK: Supple, no JVD. CARDIOVASCULAR: S1, S2 regular.. No murmur RESPIRATION: Unlabored, equal air entry, clear to auscultation. ABDOMEN: Soft, nondistended, nontender . No guarding. Positive bowel sounds LEGS: No edema. no swelling NERVOUS SYSTEM: Cranial N 2-12 grossly normal. Moves all 4 limbs. No focal deficits. Strength and sensation grossly intact. Skin: Warm and dry, no rash - Labs CBC & Chem 7: 12/13/23 04:37 12/13/23 04:37 Labs: Abnormal Lab Results - Last 24 Hours (Table) 12/12/23 12/12/23 12/13/23 Range/Units 16:39 20:42 04:37 WBC 3.97 L (4.50-10.00) X 10*3/uL RBC 3.29 L (4.10-5.20) X 10*6/uL Hgb 10.2 L (12.0-15.0) g/dL Hct 31.1 L (37.2-46.3) % Plt Count 120 L (140-440) X 10*3/uL Neutrophils # 1.42 L (1.80-7.70) X 10*3/uL Glucose (70-110) mg/dL POC Glucose (mg/dL) 216 H 205 H (70-110) mg/dL Calcium (8.7-10.3) mg/dL 12/13/23 12/13/23 12/13/23 Range/Units 04:37 06:12 11:05 WBC (4.50-10.00) X 10*3/uL RBC (4.10-5.20) X 10*6/uL Hgb (12.0-15.0) g/dL Hct (37.2-46.3) % Plt Count (140-440) X 10*3/uL Neutrophils # (1.80-7.70) X 10*3/uL Glucose 117 H (70-110) mg/dL POC Glucose (mg/dL) 134 H 161 H (70-110) mg/dL Calcium 8.5 L (8.7-10.3) mg/dL Assessment and Plan Assessment: 1. Acute syncope --Patient reports she has been having several near syncopal episodes daily for past few weeks; had scheduled an appointment with PCP -- CT of the head completed in ED remains unremarkable 2. Syncope/fall with acute C5 vertebral body fracture -CT of the cervical spine reveals acute C5 vertebral body periprosthetic fracture with hardware migration of C5-C6 and C7 screws -- Patient has been evaluated by orthopedic surgery, recommending surgical inte rvention -to be rescheduled outpatient 3. Hypertension; patient takes Zestoretic 2024 1 tablet nightly-placed on hold, felt to possibly be the underlying etiology of her syncope/near syncope, in a patient who has lost greater than 40 pounds in the last 8 months. 4. Diabetes mellitus with long-term insulin use 5. Neuropathy; continue with home dose of Neurontin Plan: Continue on current medication regimen ,monitoring and symptomatic treatment. Pain controlled. Tolerating ambulation and performing ADLs without difficulty. Cleared by neuro and cardiology for discharge. Patient is being discharged home with surgery to be rescheduled outpatient as per orthopedics, patient has been advised to continue holding her Zestoretic, maintain log of a.m. blood pressures and take to follow-up visit with PCP for further recommendations. Follow-up with PCP in 1 week. [place] J collar recommended at this time while awaiting surgical intervention as per orthopedic spine. The impression and plan of care has been dictated as directed. : I performed a history and examination of this patient, discussed the same with the dictator. I agree with the dictator's note ,documented as a scribe. Any additional findings or plans will be noted.
--- NOTE | 2023-12-14 07:52 | CA ---
Transthoracic Echo Report Name: Mica Nunes Age: 68 Gender: F : 1955 Exam Date: 12/13/2023 10:47 Exam Location: [facility] Ht (in): 71 Wt (lb): 225 Ordering Physician: Aga Nicholson MD Attending/Referring Phys: [id number], Lyn Cell Tender Helper Michelle Yu RDCS Procedure CPT: Indications: syncopal episode Cardiac Hx: Technical Quality: Good Contrast 1: Total Dose (mL): Contrast 2: Total Dose (mL): MEASUREMENTS (Male / Female) Normal Values 2D ECHO LV Diastolic Diameter PLAX 4.1 cm 4.2 - 5.9 / 3.9 - 5.3 cm LV Systolic Diameter PLAX 2.6 cm IVS Diastolic Thickness 1.2 cm 0.6 - 1.0 / 0.6 - 0.9 cm LVPW Diastolic Thickness 1.2 cm 0.6 - 1.0 / 0.6 - 0.9 cm LV Relative Wall Thickness 0.6 RV Internal Dim ED PLAX 3.3 cm LA Systolic Diameter LX 3.6 cm 3.0 - 4.0 / 2.7 - 3.8 cm LA Volume 68.1 cm??? 18 - 58 / 22 - 52 cm??? LA Volume Index 29.7 cm???/m??? 16 - 28 cm???/m??? M-MODE Aortic Root Diameter MM 3.2 cm AV Cusp Separation MM 2.1 cm DOPPLER AV Peak Velocity 128.4 cm/s AV Peak Gradient 6.6 mmHg MV Area PHT 3.2 cm??? Mitral E Point Velocity 89.7 cm/s Mitral A Point Velocity 106.2 cm/s Mitral E to A Ratio 0.8 MV Deceleration Time 240.2 ms TR Peak Velocity 216.1 cm/s TR Peak Gradient 18.7 mmHg Right Ventricular Systolic Press 23.3 mmHg FINDINGS Left Ventricle Left ventricular ejection fraction is estimated at 55-60 %. Left ventricular cavity size normal. Mildly increased septal wall thickness. Mildly increased posterior wall thickness. Right Ventricle Mild right ventricular dilatation. Right ventricular systolic pressure within normal limits. Right Atrium Normal right atrial size. No spontaneous contrast in the right atrium. Left Atrium Mildly increased left atrial volume. Mildly increased left atrial area. Mitral Valve Structurally normal mitral valve. No mitral stenosis, regurgitation or prolapse. Aortic Valve Trileaflet aortic valve. No aortic valve stenosis or regurgitation. Tricuspid Valve Structurally normal tricuspid valve. Trace to mild tricuspid regurgitation. Pulmonic Valve Structurally normal pulmonic valve. Trace pulmonic regurgitation. Pericardium No pericardial or pleural effusion. Aorta Normal size aortic root and proximal ascending aorta. CONCLUSIONS Normal LV size and systolic function with mild concentric LVH. No significant abnormality on the Doppler exam. No pericardial effusion. Previewed by: Dr. Jessica Saxena MD (Electronically Signed) Final Date: 14 December 2023 07:51
== END 2023-12-13 16:09 | disposition home or self-care (01) | DRG 552 ==
LOC: EC 13:28 → 4SSUR 15:15
PROVIDERS: ADMIT Orthopaedic Surgery; ATTEND Orthopaedic Surgery
DX: S12.400A Unspecified displaced fracture of fifth cervical vertebra, initial encounter for closed fracture (principal); T84.89XA Other specified complication of internal orthopedic prosthetic devices, implants and grafts, initial encounter; I65.23 Occlusion and stenosis of bilateral carotid arteries; Z53.09 Procedure and treatment not carried out because of other contraindication; M79.7 Fibromyalgia; W18.30XA Fall on same level, unspecified, initial encounter; M19.90 Unspecified osteoarthritis, unspecified site; E78.5 Hyperlipidemia, unspecified; I10 Essential (primary) hypertension; I95.1 Orthostatic hypotension; E11.40 Type 2 diabetes mellitus with diabetic neuropathy, unspecified; E07.9 Disorder of thyroid, unspecified; Z79.4 Long term (current) use of insulin; Z79.82 Long term (current) use of aspirin; Z98.1 Arthrodesis status; Z79.899 Other long term (current) drug therapy; Z87.891 Personal history of nicotine dependence
CPT/HCPCS: 36415; 70450; 72125; 80048; 84484; 85025; 93005; 93306; 93880; 99285

== ENCOUNTER → 2024-01-03 | Outpatient (CLI) | payer MEDICARE ==
[2024-01-03 15:26] LABS: INR 1.03 sec (0.93-1.11); Prothrombin Time 11.1 sec (9.9-11.9)
[2024-01-03 16:29] LABS: HCT 35.6 % (37.2-46.3); HGB 11.7 g/dL (12.0-15.0); MCH 31.4 pg (27.0-32.0); MCHC 32.9 g/dL (32.0-37.0); MCV 95.4 FL (80.0-97.0); Mean Platelet Volume 10.2 FL (9.5-12.2); NRBC Per 100 WBC 0 X 10*3/uL (0.00-0.01); Platelet Count 200 X 10*3/uL (140-440); RBC 3.73 X 10*6/uL (4.10-5.20); RDW 13.7 % (11.5-14.5); WBC 5.03 X 10*3/uL (4.50-10.00)
[2024-01-03 16:41] LABS: ALT 50 U/L (8-44); AST 49 U/L (13-35); Albumin 4.1 g/dL (3.8-4.9); Albumin/Globulin Ratio 1.37 Ratio (1.60-3.17); Alkaline Phosphatase 126 U/L (41-126); BUN/Creat Ratio 13.55 Ratio (12.00-20.00); Blood Urea Nitrogen 14.9 mg/dL (9.0-27.0); Calcium 9.1 mg/dL (8.7-10.3); Carbon Dioxide 24.4 mmol/L (21.6-31.8); Chloride 103 mmol/L (96-109); Glucose 148 mg/dL (70-110); Potassium 4.4 mmol/L (3.5-5.5); Sodium 138 mmol/L (135-145); Total Bilirubin 0.5 mg/dL (0.3-1.2); Total Protein 7.1 g/dL (6.2-8.2)
== END | disposition home or self-care (01) ==
LOC: LABPAT 09:10
PROVIDERS: ATTEND Orthopaedic Surgery
DX: Z01.812 Encounter for preprocedural laboratory examination (principal); T84.84XA Pain due to internal orthopedic prosthetic devices, implants and grafts, initial encounter; Z22.322 Carrier or suspected carrier of Methicillin resistant Staphylococcus aureus; R58 Hemorrhage, not elsewhere classified; Z79.899 Other long term (current) drug therapy; Y79.2 Prosthetic and other implants, materials and accessory orthopedic devices associated with adverse incidents
CPT/HCPCS: 36415; 80053; 85027; 85610; 86850; 86900; 86901; 87070

== ENCOUNTER 2024-01-10 08:25 | Day surgery (SDC) | payer MEDICARE ==
--- NOTE | 2024-01-09 21:30 | P.HPOR ---
"History of Present Illness H&P Date: 12/09/[address] [facility] [address] [address]| DO ALTAGRACIA CEDILLO, MSN, GENERAL PURCHASING AGENT-C Patient Name: MICA BRUNO Age/Sex: : DATE OF SERVICE: Dec 09, 2023 8:00?AM VISIT TYPE: POST OPERATIVE VISIT Approved[employer] VAS: 5 CHIEF COMPLAINT: * DOS: * DOI: * POST OP WEEK: 6 * SURGERY: C4-7 ACDF IMPRESSION: It was my pleasure to have seen and examined MICA. I reviewed the patient's clinical syndrome, physical findings, and imaging studies during the appointment today. It is my impression that the patient has a diagnosis of. 1. S/P C4-7 ACDF 2. SP FALL AT STORE WITH NECK PAIN 3. C5, C6 VERTEBRAL BODY FRACTURES WITH HARDWARE FAILURE C4-7 AND INSTABILITY PLAN: DISCUSSION: * I have discussed with the patient her sx and imaging. She has broken her C5 and C6 vertebral bodies and displaced her hardware and these bodies. She is having neck pain related and she needs this revised OTILIA given the severe nature as well as like posterior stabilization and decompression given the collapse that has happened due to cage migration and plate loosening screw cut out. She understands. We discussed at length the risks and benefits of the surgery she agreed to proceed. SURGICAL RECOMMENDATION: * URGENT REVISION C4-7 ACDF WITH C5, C6 CORPECTOMY, HARDWARE REVISION AND STABILIZATION INCISION * healed THERAPIES: * Therapy to start PO week 6 * Cont with home exercises and home PT exercises as able * Ice for pain control. NO HEATING PADS. * Cont with supplementation Vit D, Vit C, Ca2+, High protein diet * OK for massage or other alternative treatment modalities as possible. If it exacerbates your sx do not continue ACTIVITY * Follow restrictions as discussed below * 5-10 lbs LIFTING BENDING TWISTING PUSHING PULLING LIMIT * [place] J collar at all times except when showering, then hard shower collar. * Early and frequent ambulation helps to prevent clots and pneumonia MEDICATIONS * New Script given for the following: * [place] 10/325mg # 42 * Take as directed * Cont with GI prophylaxis medications * Cont home medications as directed by your PCP. Check with your PCP for any medication interactions or issues if needed. IMAGING * No new imaging at this time * CT and XR reviewed from hospital and office today FOLLOW UP: POSTOP PLAN AT NEXT VISIT: RECHECK PATIENT EDUCATION: Medications Reviewed: YES HISTORY: * Mica presents for her PO visit. She was recently hospitalized for a syncopal fall at the grocery store. She states she Was walking into the grocery store and grabbed a cart and then all of a sudden woke up on the floor and had bounced off of her cart cyanosis cart and was laying on the ground with neck pain. EMS brought her to the emergency department for evaluation. She received a computed tomography scan in the emergency department which demonstrated catastrophic hardware failure with screw pullout at C5-C6 and C7 anterior plate with migration of the cages. There are fractures of the vertebral bodies of C5 and C6. Patient was admitted to the hospital due to the syncopal episode and worked up for potential cardiac issues. These were cleared eventually but at the time precluded surgery she was treated in a hard cervical collar and has been on it since. She is presenting now to discuss revision surgery of her anterior neck for stabilization and fusion. She states pain in her neck. She is having increased paresthesias in her upper extremities. She denies any fevers chills shortness of breath or chest pain. She denies any other new symptoms she still having some of her old symptoms from before surgery but they are not getting worse at this time. Patient denies any f/c/sob/cp, perineal numbness or tingling, bowel or bladder incontinence/retention. Patient is ambulatory The patients' past social, medical, family, surgical history, as well as review of systems, have been reviewed. Please refer to the Neurosurgery History and Physical form that has been scanned into our electronic medical record system. 16 points review of systems completed and as stated in HPI, all other systems reviewed are negative. IMAGING: XRAY Date: Dec 09, 2023 Region:Cervical Location: [facility] Views:AP/LAT FINDINGS: Images reviewed with patient in office * These demonstrate ACUTE changes to the anterior neck fusion with hardware failure, C5 and C6 vertebral body fractures due to screw failure, plate failure and pullout. There has been settling and migration of the C5-6 and C6-7 cages with increased kyphosis secondary to the collapse and fractures. There is stenosis related to this due to the collapse and the likely hematoma formation. There is large anterior hematoma causing displacement of the midline structures by 15%. No other fractures noted. CT from the ED is reviewed and this mimics the findings of the above X Rays in more detail and shows the severe nature of her hardware failure. MEDICAL HISTORY: Past Medical History: REVIEWED STATED IN CHART Past Surgical History: REVIEWED STATED IN CHART Social History: REVIEWED STATED IN CHART * Smoking/ Tobacco use: Quit Smoking 6 MONTHS BEFORE HER LAST SURGERY ON 11/08/23 * ETOH use: Occasional * Substance use: None Family History: REVIEWED STATED IN CHART Current Medications: REVIEWED STATED IN CHART * See nursing list. Reviewed with pt. PHYSICAL EXAM: General: AOX3, NAD, Well hydrate, Well nourished INTEGUMENT: Appearance: Normal color and turgor Surgical Incisions: Well Healed PALPATION: TTP around the incision site. Mild ROM AND APPEARANCE: Neck: RESTRICTED WITH PAIN Lumbar: UNRESTRICTED VASCULAR STATUS: RUE- 2 LUE-2 RLE-2 LLE-2 Edema: NONE NEUROLOGICAL EXAMINATION: Mental Status: Awake, alert, oriented fully with normal attention, concentration and memory. Fluent appropriate speech. CN II-XII grossly intact TENSIONING: NEGATIVE MOTOR EXAM (0-5/5, NT) UPPER EXTREMITY 4 IN ALL MAJOR MUSCLE GROUPS B/L LOWER EXTREMITY 5 IN ALL MAJOR MUSCLE GROUPS B/L * Normal postoperative deconditioning noted REFLEXES (0-4/2, NT): 3+ UE B/L 2/4 LE B/L PATHOLOGICAL REFLEXES: * HOFFMANS B/L NEG CLONUS NEG BABINSKI SENSATION (0-4, NT): Intact to light touch and pain sensation to C5-T1 as well as L2-S2 except that noted below GAIT AND FUNCTIONAL EVALUATION: -Ambulatory aids NO PATIENT EDUCATION: Medications Reviewed: YES In our visit today the patient and I have had a chance to go over my understanding of their current condition, the natural course history without intervention and various interventional options. Questions were invited and answered, and the patient wishes to proceed as outlined above. I will be sure to keep you updated after the patient returns here for further follow-up. Thank you again for your referral. Please do not hesitate to contact me if you have any further questions. Signed and authenticated by: Dec 09, 2023 11:00?AM DO Kenya Garcia [facility] [address] [place] [id number] This document is confidential, intended only for the named recipient(s) and may contain information that is privileged or exempt from disclosure under applicable law. If you are not the intended recipient(s), you are notified that the dissemination, distribution or copying of this information is strictly prohibited. If you received this message in error, please notify the sender then delete this message. Past Medical History Past Medical History: Diabetes Mellitus, Fibromyalgia, Hypertension, Osteoarthritis (OA) Additional Past Medical History / Comment(s): fibromyalgia History of Any Multi-Drug Resistant Organisms: None Reported Past Surgical History: Cholecystectomy, Orthopedic Surgery, Tubal Ligation Additional Past Surgical History / Comment(s): Attempted tubal ligation re versal. Colonoscopy cervical fusion Past Anesthesia/Blood Transfusion Reactions: No Reported Reaction Additional Past Anesthesia/Blood Transfusion Reaction / Comment(s): Pt has never recieved blood. Smoking Status: Former smoker - Past Family History Sister(s) Family Medical History: Cancer Additional Family Medical History / Comment(s): Kidney cancer in both kidneys, thyroid cancer. Another sister had breast cancer. Father Family Medical History: Diabetes Mellitus Additional Family Medical History / Comment(s): Heart problems, . Mother Additional Family Medical History / Comment(s): Mother of aortic aneurysm rupture at age 55 yrs. Medications and Allergies Home Medications Medication Instructions Recorded Confirmed Type Aspirin [Adult Low Dose Aspirin EC] 81 mg PO DAILY 11/04/23 01/09/24 History Insulin NPH Hum/Reg Insulin Hm 20 unit SQ AC-BRKFST 11/04/23 01/09/24 History [NovoLIN 70-30 100 Unit/ml Vial] Tirzepatide [Mounjaro] 7.5 mg SQ Q14D 11/04/23 01/09/24 History Gabapentin 600 mg PO BID #60 tab 11/09/23 01/09/24 Rx Cyclobenzaprine [Flexeril] 10 mg PO DAILY PRN 12/10/23 01/09/24 History Ergocalciferol [Vitamin D2 (1250 1,250 mcg PO GARVIN 12/10/23 01/09/24 History Mcg = 86148 Iu)] HYDROcodone/APAP 10-325MG [[place] 1 tab PO Q4H PRN 12/10/23 01/09/24 History 10-325] Insulin NPH Hum/Reg Insulin Hm 10 unit SQ AC-LUNCH 12/10/23 01/09/24 History [NovoLIN 70-30 100 Unit/ml Vial] Zolpidem [Ambien] 10 mg PO HS PRN 12/10/23 01/09/24 History Allergies Allergy/AdvReac Type Severity Reaction Status Date / Time No Known Allergies Allergy Verified 01/09/24 09:25 Physical Examination Osteopathic Statement: *. No significant issues noted on an osteopathic structural exam other than those noted in the History and Physical/Consult."
[~2024-01-10 08:25] MED LIST changes: -ACETAMINOPHEN TAB 500 MG TAB PO PRN; -GABAPENTIN 300 MG CAP PO PRN; +HYDROmorphone 0.5 MG/0.5 ML SYRINGE IVP PRN; +LIDOCAINE 1% (10MG/ML) FOR IV START INTRADERMA PRN; +MIDAZOLAM 2 MG/2 ML VIAL IV PRN; +ONDANSETRON 4 MG/2 ML VIAL IVP PRN; +fentaNYL (PF) 50 MCG/ML 2 ML AMP IVP PRN
[2024-01-10] MEDS: IV FLUID CONTINUATION 1,000 ML IV ONE ×3 (09:18→15:31)
--- NOTE | 2024-01-10 09:19 | P.PN ---
"Progress Note - Text Progress Note Date: 01/10/24 H&P UPDATE: .D:Date: 12/21/23 : 04:40pm .T:Title: [facility] POSTOPERATIVE CHECK [address] [place] [address]| DO ALTAGRACIA CEDILLO, MSN, FOOD GENERAL MANAGER-C CHEIF COMPLAINT: * DOI: 12/17/23 * DOS: 11/08/23 * PO week/yr: 6 weeks * VAS: 1 IMPRESSION: 1. 6 weeks s/p C4-7 ACDF 2. S/P FALL FROM STANDING 3. C5 AND C6 VERTEBRAL BODY FRACTURES WITH HARDWARE FAILURE OF ACDF 4. C4-7 CATESTROPHIC HARDWARE FALURE DUE TO FFS PLAN: DISCUSSION: * I have discussed with Mica her clinical signs and sx as well as imaging. We have discussed at length what to do with her neck in this situation as it is a difficult problem that she has. Due to her fall she has had failure of her hardware from C4-7 with fractures of both C5 and C6 vertebral bodies. She fell due to syncopal episode and was in hospital for this work up. We did see her there, but she was unable to be cleared for surgery at the time. She has since been cleared per cardio and has had appropriate work up for this. We discussed the risks of leaving her hardware how it is. Her pain is suprisi ngly controlled and she is wearing her C collar at most of the times she does take breaks from it. She continues to have less arm pain and issues that before her surgery and is happy with this. Her hardware, howevere is loose and the fractrues of C5 and C6 are potentials for poor outcome and decreased longevity of this construct, let alone likely no fusion due to cage migration, screw pullout and decreased overall stability of the spine and construct. We discussed this at length. At this time she would like to proceed with revision of her C5-7 ACDF due to the hardware failure, C5 and C6 fractures as well as C7 pullout. We discussed at length risks and benefits of surgery from risk of infection, damage to tissues, nerve damage, vascular compromise, risk of re-operative risk of anesthesia up to and including . She was wiling to assume these and all the risks of surgery and proceed. SURGICAL RECOMMENDATION: * URGENT REVISION C4-7 ANTERIOR CERVICAL DISCECOMTY AND FUSION POSSIBLE CORPECTOMY RECOMMENDATIONS: * Cont to wear hard [place] J collar at all times whne up and about. OK to remove when seated and resting. Do not wear in shower. Labs, EKG, CXR for surgical planning. PCP and Cardio clearances done and acceptable risk for surgery Pain control PRN No BLTPP >5 lbs at this time. Follow up for surgical intervention 01/10/24 or earlier once schedule can be manipulated. FOLLOW UP: POST OP SUBJECTIVE: Pt presents today for postoperative follow up from their C5-7 ACDF. She was doing wonderful until on 12/17/23 when she was walking into the grocery store she grabbed a cart and went to walk further and she states she woke up on the ground with her head on another person cart undercarriage and with neck pain. She had a syncopal episode witnessed by those around her. EMS brought her to ED and she was evaluated and admitted for cardiac work up and spine check. She was found to have hardware failure of the C4-7 ACDF with fractures of C5 and C6 vertebral bodies as well as screw pullout of C5-7. She was placd in a collar and admitted for cardiac work up. She was found to have hypotension and was still being worked up. We had planned on possible surgery during this stay, but her cardiac work up was not done and so we opted for conservative treatment in a collar given her stable neurological status. She is following up today from this ordeal at her normal 6 week post op appointment. Otherwise patient is very pleased with their progress since the time of their procedure and denies any f/c/sob/cp, perineal numbness and tinlging, bowel or bladder incontinence/retention, and is ambulating The patients' past social, medical, family, surgical history, as well as review of systems, have been reviewed. Please refer to the Neurosurgery History and Physical form that has been scanned in to our electronic medical record system. 16 points review of systems completed and as stated in HPI, all other systems reviewed are negative. RADIOGRAPHS: No new today. CT from the hospital is reviwewed with the patient. see report. C5 and C6 fractures with catestrophic hardware failure of C4-7 ACDF construct. PHYSICAL EXAM: General: AOX3, NAD, Appears well nourished and well hydrated. Overall alignment well maintained at this time. Functional: Able to sit to stand Assisted/unassisted in <5 sec Ambulates with cane Incision: Healing well, no signs of infection at this time. No EEE. Dressing was CDI. TTP: Minor around incision site. MSK: FROM all major joints without restriction or pain 4+/5 BUE all major muscle groups. 5/5 BLE all major muscle groups Normal post op deconditioning no focal deficits. Neuro: SILT C3-T1 and L2-S1 Reflexes 2/4 all UE and LE b/l Lane's: NEG Clonus: NEG Babinski: NEG Veronica's: NEG No tensioning signs CN II-XII grossly intact Vascular: 2/4 Distal pulses all 4 ext, no edema Compartments soft and compressive Other: Abdomen soft, NTTP Respirations normal, non labored PATIENT EDUCATION: Medications Reviewed: YES In our visit today Ms. Pola Carrion and I have had a chance to go over my understanding of the patient's current condition, the natural course history without intervention and various interventional options. Questions were invited and answered, and the patient wishes to proceed as outlined above. I will be sure to keep you updated after Ms. Pola Carrion returns here for further follow-up. Thank you again for your referral. Please do not hesitate to contact me if you have any further questions. Signed and authenticated by: Luc Medina [place] [facility] [address] [id number] This message is confidential, intended only for the named recipient(s) and may contain information that is privileged or exempt from disclosure under applicable law. If you are not the intended recipient(s), you are notified that the dissemination, distribution or copying of this information is strictly prohibited. If you received this message in error, please notify the sender then delete this message. # SIGNED BY Luc Lr (GOO)12/21/2023 05:07PM"
[2024-01-10] MEDS: ONDANSETRON 4 MG/2 ML VIAL IVP ONE (09:25)
[2024-01-10] MEDS: DEXAMETHASONE SOD PHOSPHATE 4 MG/ML 1 ML VIAL IV ONE (09:26)
[2024-01-10] MEDS: ACETAMINOPHEN TAB 500 MG TAB PO PRN (09:26)
[2024-01-10] MEDS: GABAPENTIN 300 MG CAP PO PRN (09:38)
[2024-01-10] MEDS ORDERED: ROCURONIUM 10 MG/ML (5 ML VIAL) IV ONE (10:04)
[2024-01-10] MEDS ORDERED: MIDAZOLAM 2 MG/2 ML VIAL ONE (10:04)
[2024-01-10] MEDS ORDERED: PHENYLEPHRINE 10 MG/ML VIAL ONE (10:04)
[2024-01-10] MEDS ORDERED: KETAMINE HCL IN 0.9 % NACL 50 MG/5 ML SYRINGE ONE (10:04)
[2024-01-10] MEDS ORDERED: fentaNYL (PF) 50 MCG/ML 2 ML AMP ONE (10:04)
[2024-01-10] MEDS ORDERED: SUCCINYLCHOLINE CHLORIDE 200 MG/10 ML VIAL IV ONE (10:04)
[2024-01-10] MEDS ORDERED: TRANEXAMIC 1,000 MG/100ML-NACL PREMIX BAG ONE (10:04)
[2024-01-10] MEDS ORDERED: PROPOFOL 10 MG/ML 20 ML VIAL IV ONE (10:04)
[2024-01-10] MEDS: THROMBIN (BOVINE) 5,000 UNIT VIAL TOPICAL ONE (10:50)
[2024-01-10] MEDS: LACTATED RINGERS 1,000 ML IV ONE (11:49)
[2024-01-10] MEDS ORDERED: CYCLOBENZAPRINE 5 MG TAB PO PRN (14:20)
[2024-01-10] MEDS ORDERED: HYDROmorphone 0.5 MG/0.5 ML SYRINGE IVP PRN (14:20)
[2024-01-10] MEDS ORDERED: MAGNESIUM HYDROXIDE 2,400 MG/30 ML CUP PO PRN (14:20)
[2024-01-10] MEDS ORDERED: ONDANSETRON 4 MG/2 ML VIAL IVP PRN (14:20)
[2024-01-10] MEDS ORDERED: HYDROmorphone 1 MG/ML 1 ML SYRINGE IVP PRN (14:20)
[2024-01-10] MEDS ORDERED: CYCLOBENZAPRINE 10 MG TAB PO PRN (14:23)
[2024-01-10] MEDS: LACTATED RINGERS 1,000 ML IV SCH (15:29)
--- NOTE | 2024-01-10 15:50 | P.OP ---
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 REMOVAL OF PLATE AND SCREWS C4-5, C5-6, C6-7 USE OF IOMN Implants: GURDEEP CASCADIA EXPANDABLE ANTERIOR CERVICAL CORPECTOMY CAGE 26-38 mm GURDEEP OZARK PLATE AND SCREWS 16MM 4.0 MM SCREWS; 62MM PLATE DBM, BIO4, AUTOGRAFT Anesthesia: GETA Surgeon: Luc Lr School Admissions Representative #1: Polly Barton (WAS PRESENT AND ASSISTED WITH ALL ASPECTS OF THE CASE FROM POSITION TO DRESSING PLACEMENT) Estimated Blood Loss (ml): 100 IV fluids (ml): 1,500 Urine output (ml): 350 Pathology: none sent Condition: stable Disposition: PACU Indications for Procedure: Pt presents today for postoperative follow up from their C5-7 ACDF. She was doing wonderful until on 12/17/23 when she was walking into the grocery store she grabbed a cart and went to walk further and she states she woke up on the ground with her head on another person cart undercarriage and with neck pain. She had a syncopal episode witnessed by those around her. EMS brought her to ED and she was evaluated and admitted for cardiac work up and spine check. She was found to have hardware failure of the C4-7 ACDF with fractures of C5 and C6 vertebral bodies as well as screw pullout of C5-7. She was placd in a collar and admitted for cardiac work up. She was found to have hypotension and was still being worked up. We had planned on possible surgery during this stay, but her cardiac work up was not done and so we opted for conservative treatment in a collar given her stable neurological status. She is following up today from this ordeal at her normal 6 week post op appointment. IMPRESSION: 1. 6 weeks s/p C4-7 ACDF 2. S/P FALL FROM STANDING 3. C5 AND C6 VERTEBRAL BODY FRACTURES WITH HARDWARE FAILURE OF ACDF 4. C4-7 CATESTROPHIC HARDWARE FALURE DUE TO FFS PLAN: DISCUSSION: * I have discussed with Mica her clinical signs and sx as well as imaging. We have discussed at length what to do with her neck in this situation as it is a difficult problem that she has. Due to her fall she has had failure of her hardware from C4-7 with fractures of both C5 and C6 vertebral bodies. She fell due to syncopal episode and was in hospital for this work up. We did see her there, but she was unable to be cleared for surgery at the time. She has since been cleared per cardio and has had appropriate work up for this. We discussed the risks of leaving her hardware how it is. Her pain is suprisingly controlled and she is wearing her C collar at most of the times she does take breaks from it. She continues to have less arm pain and issues that before her surgery and is happy with this. Her hardware, howevere is loose and the fractrues of C5 and C6 are potentials for poor outcome and decreased longevity of this construct, let alone likely no fusion due to cage migration, screw pullout and decreased overall stability of the spine and construct. We discussed this at length. At this time she would like to proceed with revision of her C5-7 ACDF due to the hardware failure, C5 and C6 fractures as well as C7 pullout. We discussed at length risks and benefits of surgery from risk of infection, damage to tissues, nerve damage, vascular compromise, risk of re-operative risk of anesthesia up to and including . She was wiling to assume these and all the risks of surgery and proceed. SURGICAL RECOMMENDATION: * URGENT REVISION C4-7 ANTERIOR CERVICAL DISCECOMTY AND FUSION POSSIBLE CORPECTOMY * * Description of Procedure: REVISION C4-7 ACDF WITH HARDWARE REMOVAL, C6 CORPECTOMY, C5 PARTIAL CORPECTOMY The patient was seen and examined in the preoperative area. All preoperative protocols were followed. Informed consent was obtained, risks and benefits of the procedure were discussed at length. Risks including bleeding infection damage to the surrounding tissue and risk of reoperation were discussed with the patient. Risk of anesthesia up to and including was discussed with the patient. These are outlined in the risk review. They were willing to accept these risks and all the risks of surgery. The patient was given a weight-based dose of antibiotics in the form of 2 g Ancef. The patient was seen and evaluated by the anesthesia team who deemed them fit for surgery. The site was marked, the patient was willing to proceed with the procedure. The patient was transferred to the operative suite by the Department of anesthesia. They were then drifted off to sleep by the department anesthesia and GETA was performed. The patient tolerated this well. Whitney catheter was placed by nursing staff, a-traumatically. Once confirmation of lines and ventilation the patient was transferred to a Supine Holden table very carefully. All bony prominences including wrists, elbows, axilla, chest, hips, and thighs, and feet were padded very well. Special attention was paid to the genitalia, and these were padded accordingly. SCDs were placed on bilateral lower extremities and were connected. Arms were well padded and placed at their side thumbs up. Once in position, again we confirmed good ventilation capabilities and that lines were running appropriately. The patients Cervical spine was then exposed. 1010s were placed outlining the incision site. Standard alcohol was used to clean the incision site and allowed to dry. C-arm was used to bio-mari the patient and confirm level for incision which was marked with a skin marker. Operative briefing was performed with all teams and everyone in agreement to proceed. The patient was then prepped and draped in a normal sterile fashion. Timeout was then performed, and all parties agreed with the procedure to be performed. Transverse skin incision was then made on the right side of the patient's neck 4 cm and dissection taken down to the platysma which was split transversely. Sub platysma flap was made, and interval identified between SCM and medial structures. There was exhuberent scar tissues here as well as deep. Omohyoid was visualized and protected. Careful bipolar dissection was done due to exhuberent scarring and the plane deveolped deep between CS and Esophagus. There was extensive scar tissue and build up around the plate and screws due to toggle and the fractures. Blunt probe was then placed and lateral image taken which confirmed levels for operation. Further dissection was done of the plate and screws and to mobilize the midline structures off the plate and screws. Once this was accomplished the retractors were placed and the plate and screws were removed with ease as they were all lose except for the C4 screws. Once removed, scar tissue was debrided from the anterior cervical levels. The cages were identified as well as the fractures. once identified the cages were tested in the C5-C6 cage and the C6-C7 cages were loose. It was opted at this time for removal of these. These were removed with ease secondary to the fractures. Further cleaning up of the bone and scar tissue was then done. Cage was tested at C4-C5 and was stable. We then proceeded to corpectomy of C6. High-speed bur was used to perform corpectomy of C6 making troughs in the lateral aspect along the uncovertebral joints and taken this posteriorly. We then cleared the bone anteriorly. There was again extensive scar tissue at each disc level secondary to the previous surgery.C6 was removed entirely. This was confirmed on AP and lateral fluoroscopy. We then proceeded to partial corpectomy of C5 due to the fracture as well as the need for stable endplate. This was done with a high-speed bur as well. Once this was accomplished a trial was used to size or corpectomy bed we were able to widen the corpectomy bed based on this. Once this was widened we grabbed a trial and took AP and lateral to confirm our placement. Once this was confirmed and allowed us to size the corpectomy cage cage was then selected and filled with graft. This was an expandable cage into the cage was placed and under lateral fluoroscopy was expanded and a position we then dialed in the lordosis of the expansion and then further expandable cage or restorationism of alignment and height. Once this was accomplished a cavus tested and stable. Live Games Dealer was removed and the setscrews were placed and torqued for the lordosis as well as height locking mechanisms. We then copiously irrigated the wound and sterile saline. Meticulous hemostasis was performed. We then selected and sized and nonintegrated anterior plate and bent it accordingly. The plate was then placed and screws were drilled and placed into C7 bicortically for solid purchase. We then were able to reduce the plate to C4 and the screws were then placed. Due to bone loss anteriorly of C5 and placed the screws last as we were not able to flush the plate with the anterior portion of C5 as there was no bone there however we did use of his scaffolding to prevent any further subsidence or issues with the C5 vertebral body. Screws were placed in this. This is all done under lateral fluoroscopy. Screws were then visualized in AP and lateral showing good position as well as the plate. All locking mechanisms were then set. Final AP and lateral images taken confirmed good placement of hardware and good reduction and restorationism of height. The wound was then irrigated copiously with NSS. Surgicel placed deep in the wound. A deep drain placed out a separate incision and sewed into place. Layered closure then performed with 3-0 Vicryl in the platysma and subQ tissue. 4-0 stratafix was then placed in the subcuticular skin. The wound was then cleaned, dried and skin glue placed. Once glue dried telfa, 4x4, and tegaderms were placed for dressing. Wound edges approximated well. The patient was then transferred back to their hospital bed a-traumatically. The drain continued to hold suction. They were placed in a soft collar. They were then awakened by the department of anesthesia having tolerated the procedure well without complications.
--- NOTE | 2024-01-10 18:02 | XR ---
EXAMINATION TYPE: XR cervical spine limited, FL guidance operating room DATE OF EXAM: 01/10/2024 2:04 PM COMPARISON: Pre Operative Images if available both CT/MRI or plain film CLINICAL INDICATION: Female, 68 years old with history of T84.84XA HARDWARE FAILURE; TECHNIQUE: XR cervical spine limited, FL guidance operating room, multiple fluoroscopic images provid ed for procedure. Total fluoroscopy time: 1 min 5 seconds Total submitted images to PACS: 7 DAP: 3.8148 mGym2 Gycm2 uGym2 cGycm2 or equivalent. FINDINGS: Fluoroscopic images during internal fixation/arthroplasty demonstrate fixation hardware in appropriat e position. Hardware appears intact. No immediate complication identified. IMPRESSION: 1. No evidence for intraoperative complication. 2. Please see the operative/procedural note for further details. [facility], , 01/10/2024 6:00 PM
[2024-01-10] MEDS: HYDROcodone/APAP 10-325MG 1 EACH TAB PO PRN (20:33)
[2024-01-10] MEDS: GABAPENTIN 300 MG CAP PO SCH (20:34)
[2024-01-10] MEDS: ZOLPIDEM 5 MG TAB PO PRN (20:34)
[2024-01-10] MEDS: INSULIN ASPART (NovoLOG) 100 UNIT/ML VIAL SQ SCH (22:06)
[2024-01-11 04:31] LABS: African American GFR (CKD) 89 (>60 ml/min/1.73 sqM); Anion Gap 5 mmol/L; Blood Urea Nitrogen 13 mg/dL (7-17); Calcium 9.1 mg/dL (8.4-10.2); Carbon Dioxide 24 mmol/L (22-30); Chloride 108 mmol/L (98-107); Glucose 149 mg/dL (74-99); Non-African American GFR(CKD) 77 (>60 ml/min/1.73 sqM); Potassium 3.9 mmol/L (3.5-5.1); Sodium 137 mmol/L (137-145)
[2024-01-11 04:34] LABS: Basophils % (A) 0 %; Eosinophils # (A) 0.1 k/uL (0-0.7); Eosinophils % (A) 1 %; HCT 33.8 % (34.0-46.0); Lymphocytes # (A) 1.1 k/uL (1.0-4.8); Lymphocytes % (A) 19 %; MCH 31.8 pg (25.0-35.0); MCHC 32.6 g/dL (31.0-37.0); MCV 97.5 fL (80.0-100.0); Mean Platelet Volume 7.7; Monocytes # (A) 0.4 k/uL (0-1.0); Monocytes % (A) 7 %; Neutrophils # (A) 4.1 k/uL (1.3-7.7); Neutrophils % (A) 69 %; Platelet Count 163 k/uL (150-450); RBC 3.47 m/uL (3.80-5.40); RDW 13.2 % (11.5-15.5); WBC 5.9 k/uL (3.8-10.6)
[2024-01-11] MEDS: INSULN ASP PRT/INSULIN ASPART 100 UNIT/ML 10 ML VIAL SQ SCH ×2 (06:31→11:21)
[2024-01-11] MEDS: SENNOSIDES-DOCUSATE SODIUM 1 EACH TAB PO SCH (08:13)
[2024-01-11 08:15] VITALS: BP 171/75; PULSE 87; RESP 17; TEMP 98.5
--- NOTE | 2024-01-11 08:31 | CT ---
EXAMINATION TYPE: CT cervical spine wo con CT DLP: 434 mGycm, Automated exposure control for dose reduction was used. DATE OF EXAM: 01/11/2024 7:37 AM COMPARISON: 12/10/2023. CLINICAL INDICATION: Female, 68 years old with history of S/p Revision C4-C7 with C6 corpectomy; PHH, S/p Revision C4-C7 with C6 corpectomy TECHNIQUE: Axial CT images from the skull base to the inferior aspect of T2 we obtained without intra venous contrast. Coronal and sagittal reformatted images were also reviewed. Contrast used: mL of , (if blank None) Oral contrast used: (if blank None) FINDINGS: Postsurgical changes to the spine involving C4 C5 C6 and C7. Hardware appears intact. No evidence for fracture. Drainage catheter terminates anterior to the surgical bed of the spine. There is subcutane ous gas compatible with recent surgery. The lung apices are clear. IMPRESSION: Postsurgical changes with hardware intact, no immediate postop complication. No evidence of fracture. [facility], , 01/11/2024 8:29 AM
--- NOTE | 2024-01-11 09:41 | P.PN ---
Subjective Progress Note Date: 01/11/24 Principal diagnosis: 1. S/P C4-7 ACDF 2. SP FALL AT STORE WITH NECK PAIN 3. C5, C6 VERTEBRAL BODY FRACTURES WITH HARDWARE FAILURE C4-7 AND INSTABILITY Patient seen and examine this morning. Patient is sitting up in bed eating her breakfast and tolerating well. Patient denies any difficulty with swallowing. Patient has taken off her hard cervical collar and is on her bed. Informed patient the importance of leaving collar in place. Patient reports that it is uncomfortable; education has been reinforced. Surgical incision to the anterior cervical spine, edges are well-approximated with glue intact. PAM drain has been removed, 20 mL output overnight. New dressing has been applied. Patient denies any radicular symptoms to the upper extremities. Patient is wanting to be discharged later today. Objective - Vital Signs Vital signs: Vital Signs Temp 98.5 F 01/11/24 07:24 Pulse 87 01/11/24 07:24 Resp 17 01/11/24 07:24 BP 171/75 01/11/24 07:24 Pulse Ox 99 01/11/24 07:24 FiO2 Intake & Output 01/10/24 01/11/24 01/11/24 18:59 06:59 18:59 Intake Total 3200 Output Total 2050 20 Balance 1150 -20 Weight 101.8 kg 101.8 kg Intake: IV 3200 Output: Drainage 20 Anterior Neck 20 Urine 1900 Estimated Blood Loss 150 Other: # Voids 0 4 - Exam Physical Examination General: The patient is awake and alert, in no acute distress Skin: Skin is warm and dry with no obvious rashes or lesions. Surgical incision to the anterior cervical spine, edges are well-approximated with glue intact. PAM drain has been removed and new dressing has been applied. Eye: Pupils are equal, round and reactive to light, extra-ocular movements are intact; there is normal conjunctiva bilaterally. Neck: The neck is supple, there is mild tenderness around the incision site. Limited range of motion due to surgical procedure and hard cervical collar. Cardiovascular: There is a regular rate and rhythm. No murmur, rub or gallop is appreciated. Respiratory: Respirations are non-labored, breath sounds are equal. Gastrointestinal: Soft, non-distended, non-tender abdomen. Back: There is no tenderness to palpation in the midline, paralumbar, parathoracic or buttocks region. There is no obvious deformity . Musculoskeletal: ROM limited secondary to pain and stiffness from surgical procedure. Right: Shoulder abduction 5/5, elbow flexors 5/5, wrist dorsiflexors 5/5. finger abductor 5/5, prize coordinator 5/5, hip flexor 5/5, knee flexor 5/5, ankle dorsiflexor 5/5, ankle plantarflexion 5/5 and extensor hallucis 5/5. Left: Shoulder abduction 5/5, elbow flexors 5/5, wrist dorsiflexors 5/5. finger abductor 5/5, prize coordinator 5/5, hip flexor 4-/5, knee flexor 4/5, ankle dorsiflexor 5/5, ankle plantarflexion 5/5 and extensor hallucis 5/5. Neurological: CN 2-12 intact. There are no obvious motor or sensory deficits. Movement and coordination equal and intact. Sensory exam to light touch intact C5-T1 and intact from L2-S1. Reflexes 2/4 in bilateral upper and lower extremities. Negative Hoffmans, babinski, and clonus signs. Psychiatric: Cooperative, appropriate mood & affect, normal judgment. - Labs CBC & Chem 7: 01/11/24 03:20 01/11/24 03:20 Labs: Abnormal Lab Results - Last 24 Hours (Table) 01/11/24 01/11/24 Range/Units 03:20 03:20 RBC 3.47 L (3.80-5.40) m/uL Hgb 11.0 L (11.4-16.0) gm/dL Hct 33.8 L (34.0-46.0) % Chloride 108 H (98-107) mmol/L Glucose 149 H (74-99) mg/dL Assessment and Plan Assessment: Postop day 1: REVISION C4-7 ACDF WITH HARDWARE REMOVAL, C6 CORPECTOMY, C5 PARTIAL CORPECTOMY Plan: -Appreciate reporting process consultant and team management. -Activity: Ambulate QID, OOB all meals, up and about, limit lifting bending twisting to less than 5 lbs. Use walker or cane if needed for stability. -Daily PT/OT, increase ambulation strength and balance. -Hard cervical collar on at all times, may remove for showers. -Pain control: Adequate at this time -Meds: reviewed -GI ppx: senna, Miralax -DVT PPX: OK to restart Heparin tonight -Hygiene: Shower today. Maintain dressing clean and dry. -Encourage IS 10x/hr -Dispo: Anticipate discharge home later today. *I reviewed and discussed this case with my attending Dr. Lr, whom has reviewed this chart and films and is in agreement with assessment and plan of care as outlined above. I have personally seen and examined the patient, performed the documentation and the assessment and plan as written. Number of minutes spent on the visit: 20m.
--- NOTE | 2024-01-11 12:17 | P.CONS ---
History of Present Illness - Reason for Consult Consult date: 01/11/24 Medical management Requesting physician: Luc Lr - Chief Complaint Hardware failure, status post revision is C4-C7 ACDF with C5 partial corpec - History of Present Illness Hardware failure, admitted with Harware failure , status post revision is C4-C7 ACDF with C5 partial corpectomy. Tolerated procedure well. Ambulating in hallway, wearing c-collar, denies any numbness or tingling of upper extremities. Pain controlled. Discharge planning in progress for today as per orthopedics spine. Review of Systems ROS Statement: Those systems with pertinent positive or pertinent negative responses have been documented in the HPI. ROS Other: All systems not noted in ROS Statement are negative. Past Medical History Past Medical History: Diabetes Mellitus, Fibromyalgia, Hypertension, Osteoarthritis (OA) Additional Past Medical History / Comment(s): fibromyalgia History of Any Multi-Drug Resistant Organisms: None Reported Past Surgical History: Cholecystectomy, Orthopedic Surgery, Tubal Ligation Additional Past Surgical History / Comment(s): Attempted tubal ligation reversal. Colonoscopy cervical fusion Past Anesthesia/Blood Transfusion Reactions: No Reported Reaction Additional Past Anesthesia/Blood Transfusion Reaction / Comm: Pt has never recieved blood. Smoking Status: Former smoker - Past Family History Sister(s) Family Medical History: Cancer Additional Family Medical History / Comment(s): Kidney cancer in both kidneys, thyroid cancer. Another sister had breast cancer. Father Family Medical History: Diabetes Mellitus Additional Family Medical History / Comment(s): Heart problems, . Mother Additional Family Medical History / Comment(s): Mother of aortic aneurysm rupture at age 55 yrs. Medications and Allergies Home Medications Medication Instructions Recorded Confirmed Type Aspirin [Adult Low Dose Aspirin EC] 81 mg PO DAILY 11/04/23 01/09/24 History Insulin NPH Hum/Reg Insulin Hm 20 unit SQ AC-BRKFST 11/04/23 01/09/24 History [NovoLIN 70-30 100 Unit/ml Vial] Tirzepatide [Mounjaro] 7.5 mg SQ Q14D 11/04/23 01/10/24 History Gabapentin 600 mg PO BID #60 tab 11/09/23 01/09/24 Rx Cyclobenzaprine [Flexeril] 10 mg PO DAILY PRN 12/10/23 01/09/24 History Ergocalciferol [Vitamin D2 (1250 1,250 mcg PO GARVIN 12/10/23 01/10/24 History Mcg = [id number] Iu)] HYDROcodone/APAP 10-325MG [Salvo 1 tab PO Q4H PRN 12/10/23 01/09/24 History 10-325] Insulin NPH Hum/Reg Insulin Hm 10 unit SQ AC-LUNCH 12/10/23 01/09/24 History [NovoLIN 70-30 100 Unit/ml Vial] Zolpidem [Ambien] 10 mg PO HS PRN 12/10/23 01/09/24 History Cyclobenzaprine [Flexeril] 5 mg PO TID PRN #40 tablet 01/11/24 Rx Gabapentin 600 mg PO BID #60 tab 01/11/24 Rx HYDROcodone/APAP 10-325MG [Salvo 1 tab PO Q4HR PRN #42 tab 01/11/24 Rx 10-325] Sennosides/Docusate Sodium [Senna 1 each PO DAILY PRN #20 tab 01/11/24 Rx Plus 8.6-50 mg Tablet] cefaDROXiL [Duricef] 500 mg PO Q12HR #10 cap 01/11/24 Rx Allergies Allergy/AdvReac Type Severity Reaction Status Date / Time No Known Allergies Allergy Verified 01/10/24 08:52 Physical Exam Vitals: Vital Signs Temp Pulse Pulse Resp BP Pulse Ox 01/11/24 07:30 87 17 01/11/24 07:24 98.5 F 87 17 171/75 99 01/11/24 00:22 97.7 F 82 16 150/78 97 01/10/24 19:17 98.2 F 83 17 156/75 96 01/10/24 17:17 97.5 F L 76 18 142/65 95 01/10/24 17:00 75 16 138/76 95 01/10/24 16:30 77 16 135/74 95 01/10/24 16:02 148/69 01/10/24 16:01 78 16 01/10/24 15:30 75 16 172/69 97 01/10/24 15:14 75 16 170/77 99 01/10/24 14:59 75 16 177/73 100 01/10/24 14:44 78 16 143/66 100 01/10/24 14:29 97 F L 81 16 156/70 100 Intake and Output 01/10/24 01/11/24 01/11/24 22:59 06:59 14:59 Intake Total 550 Output Total 1100 20 Balance -550 -20 Intake: IV 550 Output: Drainage 20 Anterior Neck 20 Urine 1100 Other: # Voids 0 4 Weight 101.8 kg VITAL SIGNS: [As above] GENERAL: Alert and oriented x 3, no acute distress HEENT: Conjunctivae normal. eyes normal. mmm. NECK: Wearing c-collar. CARDIOVASCULAR: S1, S2 regular. No murmur RESPIRATION: Unlabored, equal air entry, clear to auscultation. ABDOMEN: Soft, nondistended, nontender . No guarding. Positive bowel sounds LEGS: No edema. no swelling NERVOUS SYSTEM: Cranial N 2-12 grossly normal.No focal deficits. Strength and sensation grossly intact Skin: Warm and dry, no rash Results CBC & Chem 7: 01/11/24 03:20 01/11/24 03:20 Labs: Abnormal Lab Results - Last 24 Hours (Table) 01/11/24 01/11/24 Range/Units 03:20 03:20 RBC 3.47 L (3.80-5.40) m/uL Hgb 11.0 L (11.4-16.0) gm/dL Hct 33.8 L (34.0-46.0) % Chloride 108 H (98-107) mmol/L Glucose 149 H (74-99) mg/dL Assessment and Plan Assessment: Hardware failure, status post revision of C4-C7 ACDF with C5 partial corpectomy Hypertension Diabetes mellitus Former nicotine dependence Plan: Continue on current medication regimen ,monitoring and symptomatic treatment. Discharge planning in progress as per orthopedic spine. pain management and DVT prophylaxis as per primary. Reinforced cervical collar. Medically cleared for discharge. Follow-up with PCP in 1 week. Thank you for the consult. The impression and plan of care has been dictated as directed. : I performed a history and examination of this patient, discussed the same with the dictator. I agree with the dictator's note ,documented as a scribe. Any additional findings or plans will be noted.
--- NOTE | 2024-01-11 12:40 | P.DS ---
Providers Date of admission: 01/10/24 Expected date of discharge: 01/11/24 Attending physician: Luc Lr DO Consults: 01/10/24 14:25 Consult Physician Routine Consulting Provider: Nilay Ferro Reason/Comments: Medical Management Do you want consulting provider notified?: Yes Primary care physician: Nilay Ferro [place] [facility] Course: Hospital Course: The patient was evaluated preoperatively and found to have the diagnosis of hardware failure. They underwent appropriate preoperative care and were willing to undergo the intended procedure. They underwent a successful revision C4-C7 ACDF with C5 partial corpectomy and C6 complete corpectomy, were recovered appropriately and sent to the floor. While on the floor they worked with physical therapy, occupational therapy and nursing to enhance their recovery experience. Their pain was well controlled through their stay and they were started on appropriate medications, DVT ppx modalities, activity and dietary needs. Daily labs were monitored closely, and transfusions were only used when necessary. Medicine as well as other consulting services have made their input and have helped with our team approach and multidisciplinary care. PT milestones have been met and passed and they have made the recommendation of home for this patient and treating providers agree with this care path. The patient will be discharged home with appropriate medications, instructions and follow-up information and in stable condition. Patient Condition at Discharge: Good Plan - Discharge Summary Discharge Rx Participant: No New Discharge Prescriptions: New cefaDROXiL [Duricef] 500 mg PO Q12HR #10 cap HYDROcodone/APAP 10-325MG [Quantico 10-325] 1 tab PO Q4HR PRN #42 tab PRN Reason: Pain Cyclobenzaprine [Flexeril] 5 mg PO TID PRN #40 tablet PRN Reason: Muscle Spasm Gabapentin 600 mg PO BID #60 tab Sennosides/Docusate Sodium [Senna Plus 8.6-50 mg Tablet] 1 each PO DAILY PRN #20 tab PRN Reason: Constipation No Action Tirzepatide [Mounjaro] 7.5 mg SQ Q14D Zolpidem [Ambien] 10 mg PO HS PRN PRN Reason: Insomnia HYDROcodone/APAP 10-325MG [[place]ico 10-325] 1 tab PO Q4H PRN PRN Reason: Pain Insulin NPH Hum/Reg Insulin Hm [NovoLIN 70-30 100 Unit/ml Vial] 20 unit SQ AC-BRKFST Aspirin [Adult Low Dose Aspirin EC] 81 mg PO DAILY Gabapentin 600 mg PO BID #60 tab Ergocalciferol [Vitamin D2 (1250 Mcg = 40125 Iu)] 1,250 mcg PO GARVIN Insulin NPH Hum/Reg Insulin Hm [NovoLIN 70-30 100 Unit/ml Vial] 10 unit SQ AC-LUNCH Cyclobenzaprine [Flexeril] 10 mg PO DAILY PRN PRN Reason: Muscle Spasm Discharge Medication List Aspirin [Adult Low Dose Aspirin EC] 81 mg PO DAILY 11/04/23 [History] Insulin NPH Hum/Reg Insulin Hm [NovoLIN 70-30 100 Unit/ml Vial] 20 unit SQ AC- BRKFST 11/04/23 [History] Tirzepatide [Mounjaro] 7.5 mg SQ Q14D 11/04/23 [History] Gabapentin 600 mg PO BID #60 tab 11/09/23 [Rx] Cyclobenzaprine [Flexeril] 10 mg PO DAILY PRN 12/10/23 [History] Ergocalciferol [Vitamin D2 (1250 Mcg = 07911 Iu)] 1,250 mcg PO GARVIN 12/10/23 [History] HYDROcodone/APAP 10-325MG [Quantico 10-325] 1 tab PO Q4H PRN 12/10/23 [History] Insulin NPH Hum/Reg Insulin Hm [NovoLIN 70-30 100 Unit/ml Vial] 10 unit SQ AC- LUNCH 12/10/23 [History] Zolpidem [Ambien] 10 mg PO HS PRN 12/10/23 [History] Cyclobenzaprine [Flexeril] 5 mg PO TID PRN #40 tablet 01/11/24 [Rx] Gabapentin 600 mg PO BID #60 tab 01/11/24 [Rx] HYDROcodone/APAP 10-325MG [Quantico 10-325] 1 tab PO Q4HR PRN #42 tab 01/11/24 [Rx] Sennosides/Docusate Sodium [Senna Plus 8.6-50 mg Tablet] 1 each PO DAILY PRN #20 tab 01/11/24 [Rx] cefaDROXiL [Duricef] 500 mg PO Q12HR #10 cap 01/11/24 [Rx] Follow up Appointment(s)/Referral(s): Nilay Ferro DO [Primary Care Provider] - 1 Week Luc Lr DO [Doctor of Osteopathic Medicine] - 01/25/24 8:30 am Activity/Diet/Wound Care/Special Instructions: Spine Discharge and Recovery Instructions Date of Surgery: 01/10/2024 Diagnosis: Hardware failure Procedure: Revision C4-C7 ACDF with C5 partial corpectomy and C6 complete corpectomy Medications: See medication list All medication refills should be obtained through your primary care doctor or your clinic spine surgeon. Please discuss prescription refills at your follow up appointment. Do not call the hospital for medication refills. Activity: Encourage ambulation with assist of walker, Up and about 6-8x daily PT/OT daily work on balance, strength and mobility Up in chair with all meals Shower daily Brace: Use brace when up and about, do not wear in bed or shower Dressing: Leave your dressing in place for a total of 3 days post operatively. Then you may remove your dressing and leave open to air. Keep the area clean and if not able to keep area clean, then cover with sterile gauze and tape. Showering: You may shower 3 days after your procedure allowing soap and water to run over incision. Do not scrub. Do not soak. Blot dry. Follow up: Please confirm a follow up appointment with your surgeon 2 weeks post operatively. Please make an appointment to follow up with your PCP in 1-2 weeks after surgery for evaluation '3 phase, 3-week plan' POST OP WEEKS 1-3 1. Lifting/carrying/pushing/pulling limited to less than 5 pounds. 2. Do not sit for longer than 15 minutes at one time. Get up and walk around. Prolonged sitting is NOT advised. If you lay down, see if you can tolerate laying down on you front (belly side) 3. Walk for periods of 15 minutes = 1 mile but no longer; do it multiple times times each day. 4. Ice your low back after activity. POST OP WEEKS 3-6 1. Lifting limited to less than 20 pounds. 2. Do not sit for longer than 30 minutes at a time. Frequently change positions. Use a sit-to stand workstation or take frequent breaks from sitting if you have returned to work. 3. Walk for 30 minutes each day. If possible, do these three or more times a day POST OP WEEKS 6+ At your 6-week appointment we will give you a physical therapy referral to focus on a core stabilization and strengthening program. You should also work on leg & buttock strengthening, hamstring & quadriceps stretching, and continue a low impact aerobic activity program such as swimming, walking, or riding a stationary bicycle. During the initial 6 weeks after your surgery, you are at the highest risk of re-injuring your spine. You should generally avoid BLT's (bending, lifting and twisting combination motions) and follow the above guidelines to reduce the chance of reinjury. You can anticipate post op appointments in our office at approximately 3 weeks and 6 weeks after your surgery. INCISION CARE: If your incision is not draining you do NOT need to cover it with a dressing. Keep your incision clean, dry and intact. In most cases, we apply skin glue, kimber or sutures to the incision at the time of surgery. This will be like a crust or have the appearance of a scab and will fall off in time on its own. The stitches or kimber need to be removed at 3 weeks post op appointment. You may begin to shower 3 days after surgery (this allows the glue to link well). However, please avoid scrubbing the incision site or peeling off any of the skin glue. This will ensure optimal healing of your incision. Also, during this time avoid soaking the incision area in water - this includes swimming pools, hot tubs or baths. No ointments, lotions or oils on the incision until your surgeon allows. Leave kimber, sutures or glue in place. Neurological dysfunction that comes on suddenly can also be a sign of a stroke. Below some common symptoms of a stroke are listed: B - balance difficulty such as sudden onset walking or leaning to one side - NEW E - eye problem such as sudden double vision or trouble seeing on one side - NEW F - Facial weakness or numbness on one side - NEW A - Arm or leg weakness or numbness on one side - NEW S - Slurred speech or difficulty with word finding - NEW T - Time is BRAIN! Call 911 as soon as you recognize these symptoms Diet: Consume a regular diet rich in vegetables and lean protein such as chicken or fish. You should consume in a ratio of approximately 20% fats|40% carbohydrates|40%protein. Vegetables, sweet potatoes, brown rice or quinoa are examples of good carbohydrates. Chips, white bread, cookies and sweets/sugar are examples of bad carbohydrates. Limit your bad carbs, go wild with good carbs. "Life's Simple 7" Guidelines as per [employer] These will help you reclaim your life after surgery and pole shaver helper in your recovery, keeping in mind your restrictions. (1) Get Active. Physical activity can help people lose weight, control high blood pressure and cholesterol, feel emotionally better, and sleep better. (2) Control Cholesterol. Avoid a diet high in saturated fat, trans fat, & cholesterol. Limit whole milk & cream, ice cream, butter, egg yolks, processed meats (like sausage and hot dogs), and fatty meats. Choose healthy foods that are low in saturated fat, trans fat and cholesterol which include: Fruits and vegetables, fiber rich grain products (like whole grain pasta and brown rice), lean meat such as chicken, fish, nuts, seeds, and legumes. (3) Eat Better. Eat small portions. Shop at the grocery with a list and do not stray from it. Tips for a healthy diet include: Limit sodium intake to less than 1500mg daily, avoid prepackaged, processed, and fast foods, choose a diet rich in fruits, vegetables, and whole grain, high fiber foods, and limit saturated & cholesterol in your diet. (4) Manage Blood Pressure. If you have high blood pressure, you should have a cuff at home so that you can check your blood pressure regularly. Be sure you have a good cuff. An arm one is generally better than a wrist one. Bring the cuff to a doctor's appointment to validate that the measurements that your cuff are taking are accurate. Take your blood pressure twice daily when you are sitting down and relaxing. Record the numbers in a log and bring this log with you to your doctors' appointments. (5) Lose Weight if your BMI is above 25. A healthy BMI is between 19-25. To calculate Your BMI, you may use a Standard BMI Calculator on the NIH BMI website: <www.nhlbi.nih.gov/guidelines/obesity/BMI/bmicalc.htm>. Weigh oneself daily. If you are overweight, set a goal to lose weight. A pound a week loss if needed is a good target. (6) Reduce Blood Sugar. Limit foods and liquids with "added sugars." (Added sugars include sucrose, fructose, glucose, maltose, dextrose, high fructose corn syrup, corn syrup, concentrated fruit juice and honey). (7) Stop Smoking. If you smoke, quitting smoking is one of the best things that you can do for your health. Smoking increases your risk of heart attack, stroke, and peripheral vascular disease, which is a build-up of plaque in your arteries. Please discard all the cigarettes and lighters in your house. Have a plan for what you will do when you have the urge to smoke. Direct and second- hand smoke shortens your life as well as the lives of your family, friends and others around you. For your health and the health of those around you, please consider quitting! Proper Bending Body Mechanics: Maintain a wide stance with one foot slightly in front of the other. Keep your back straight. Bend utilizing the strength in your hips and knees. Do not bend at the waist. Maintain the lifted object at your waist-level close to your body. Avoid lifting weight that causes immediately pain or pain anywhere in the body afterwards. Smoking/Nicotine If there was ever one thing that you could do to increase your overall health, decrease your risk of cardiovascular problems by about 39% the second you make the choice, it is to STOP SMOKING. Your body's most instant gratification is the second you stop smoking. We have all heard the studies, read the articles but it is true, smoking is extremely bad for your overall health, and moreover it is detrimental to your bone health. Nicotine, IN ANY FORM, kills bone cells, prevents your body from healing fractures, and significantly prolongs healing after surgery. In spine surgery specifically, it increases your risk of not healing your bones to create a fusion and increases your risk of having a revision surgery due to this up to 60%. I know it is hard. I know it feels impossible. But there are ways. Take control of your life. We are here to help you through it. And when you are ready, ask us and we can direct you to help if you desire. Use the START Plan to Quit Smoking (please visit the Helpguide.org website listed below for more information): S = Set a quit date. Choose a date within the next 2 weeks, so you have enough time to prepare without losing your motivation to quit. If you mainly smoke at work, quit on the weekend, so you have a few days to adjust to the change. T = Tell family, friends, and co-workers that you plan to quit. Let your friends and family in on your plan to quit smoking and tell them you need their support and encouragement to stop. Look for a quit nelson who wants to stop smoking as well. You can help each other get through the rough times. A = Anticipate and plan for the challenges you'll face while quitting. Most people who begin smoking again do so within the first 3 months. You can help yourself make it through by preparing ahead for common challenges, such as nicotine withdrawal and cigarette cravings. R = Remove cigarettes and other tobacco products from your home, car, and work. Throw away all your cigarettes (no emergency pack!), lighters, ashtrays, and matches. Wash your clothes and freshen up anything that smells like smoke. Shampoo your car, clean your drapes and carpet, and steam your furniture. T = Talk to your doctor about getting help to quit. Your doctor can prescribe medication to help with withdrawal and suggest other alternatives. If you can't see a doctor, you can get many products over the counter at your local pharmacy or grocery store, including the nicotine patch, nicotine lozenges, and nicotine gum. Resources for Quitting Smoking: <https://www.[facility].gov/documents/[facility]/Quit_Tobacco_Resources_for_patients_313480_7.pdf> Supplementation: Take recommended dosages of Vitamin D and Calcium to help fortify your bones and help them to heal. See your health maintenance packet for dosages and recommended levels. DVT/VTE prophylaxis: You will be given compression stockings from the hospital. Wear these daily for the first two weeks after surgery. You may take them off at night. You may be prescribed a medication to help thin your blood. Take this as directed. If you are not prescribed this medication, early and frequent ambulation has been shown to be the best prophylaxis to deep vein thrombosis and sequelae related to this event. Discharge Disposition: HOME SELF-CARE
[2024-01-13 11:57] LABS: Glucose,Whole Blood 203 mg/dL (70-110)
[2024-01-13 11:57] LABS: Glucose,Whole Blood 152 mg/dL (70-110)
[2024-01-13 11:57] LABS: Glucose,Whole Blood 143 mg/dL (70-110)
[2024-01-13 11:57] LABS: Glucose,Whole Blood 309 mg/dL (70-110)
[2024-01-13 11:58] LABS: Glucose,Whole Blood 162 mg/dL (70-110)
[2024-01-15] MEDS ORDERED: ERGOCALCIFEROL 1,250 MCG (50,000 IU) CAPSULE PO SCH (09:00)
== END 2024-01-11 13:15 | disposition home or self-care (01) ==
LOC: OR 08:25 → 4SSUR 14:13 → OR 01-11 13:15
PROVIDERS: ATTEND Orthopaedic Surgery
DX: T84.84XA Pain due to internal orthopedic prosthetic devices, implants and grafts, initial encounter
CPT/HCPCS: 72040; 72125; 80048; 85025

== ENCOUNTER 2024-04-26 05:43 | Day surgery (SDC) | payer MEDICARE ==
[2024-04-20 12:17] VITALS: BMI 30.7
[~2024-04-26 05:43] MED LIST changes: +ACETAMINOPHEN TAB 500 MG TAB PO PRN; +GABAPENTIN 300 MG CAP PO PRN; -HYDROmorphone 0.5 MG/0.5 ML SYRINGE IVP PRN; -LIDOCAINE 1% (10MG/ML) FOR IV START INTRADERMA PRN; -MIDAZOLAM 2 MG/2 ML VIAL IV PRN; -fentaNYL (PF) 50 MCG/ML 2 ML AMP IVP PRN
[2024-04-26] MEDS ORDERED: LIDOCAINE 1% (10MG/ML) FOR IV START INTRADERMA PRN (06:31)
[2024-04-26] MEDS ORDERED: droPERidol 5 MG/2 ML VIAL IVP ONE (06:31)
[2024-04-26] MEDS: IV FLUID CONTINUATION 1,000 ML IV ONE (06:44)
--- NOTE | 2024-04-26 06:50 | P.HPOR ---
History of Present Illness H&P Date: 04/26/24 PREOPERATIVE NOTE DATE: 04/26/2024 PATIENT: Ms. Pola Carrion AGE: 68 PREOPERATIVE DIAGNOSIS: Non-functional spinal cord stimulator PLANNED PROCEDURE: Removal of non-functional spinal cord stimulator HISTORY OF PRESENT ILLNESS: Patient is a 68-year-old female with history of cervical spine surgery who has a non-functional spinal cord stimulator. Patient has expressed desire to have the stimulator removed after April 11. Patient is currently taking [place], Tramadol, Gabapentin, and Aspirin. RISKS AND BENEFITS DISCUSSED: Benefits: - Removal of non-functional hardware - Potential reduction in foreign body sensation - Prevention of future complications from retained non-functional device Risks include but are not limited to: - Bleeding - Infection - Nerve injury - Wound healing issues - Need for further surgery - Anesthesia risks PLAN: - Outpatient surgery REMOVAL OF NON FUNCTIONAL SPINAL CORD STIMULATOR -Clearance for surgery obtained - Follow up in 2 weeks for wound check and staple removal - Activity restrictions and wound care instructions to be provided post- operatively - Continue current medications as directed Patient has demonstrated understanding of the procedure, risks, benefits, and alternatives. All questions have been answered. Patient wishes to proceed with surgery as outlined above. ----- COMPREHENSIVE DISCUSSION OF RISKS AND BENEFITS: BENEFITS: - Removal of non-functional hardware that serves no therapeutic purpose - Elimination of potential future complications from retained hardware - Reduction in foreign body sensation and local tissue irritation - Prevention of possible device migration or component failure - Reduced risk of future imaging interference - Possible improvement in comfort and mobility RISKS: General Surgical Risks: - Anesthesia-related complications including but not limited to respiratory issues, allergic reactions, and cardiac events - Bleeding (both immediate and delayed) - Post-operative infection requiring possible additional treatment or antibiotics - Blood clots (Deep Vein Thrombosis/Pulmonary Embolism) - Delayed wound healing or wound dehiscence Procedure-Specific Risks: - Nerve injury or damage resulting in temporary or permanent numbness, weakness, or pain - Spinal cord injury (extremely rare but serious) - Cerebrospinal fluid leak - Scar tissue formation around the surgical site - Incomplete removal of all components requiring possible additional surgery - New onset or worsening of back pain - Need for future spinal surgery ALTERNATIVES DISCUSSED: - Conservative management - leaving device in place - Replacement with new stimulator system - Alternative pain management strategies Patient acknowledges understanding of these risks and benefits, including possible unforeseen complications not listed above. Patient has had opportunity to ask questions and has received satisfactory answers. Patient understands that while every effort will be made to minimize risks, no guarantee can be made regarding final outcome. Past Medical History Past Medical History: Diabetes Mellitus, Fibromyalgia, Hypertension, Osteoarthritis (OA) Additional Past Medical History / Comment(s): Weight loss of 50 lbs, no longer has hypertension. Neck and back pain. History of Any Multi-Drug Resistant Organisms: None Reported Past Surgical History: Cholecystectomy, Orthopedic Surgery, Tubal Ligation Additional Past Surgical History / Comment(s): Attempted tubal ligation reversal, colonoscopy, cervical fusion with later redo due to hardware failure, spinal stimulator placed. Past Anesthesia/Blood Transfusion Reactions: No Reported Reaction Additional Past Anesthesia/Blood Transfusion Reaction / Comment(s): Has never received blood. Smoking Status: Former smoker - Past Family History Sister(s) Family Medical History: Cancer Additional Family Medical History / Comment(s): Kidney cancer in both kidneys, thyroid cancer. Another sister had breast cancer. Father Family Medical History: Diabetes Mellitus Additional Family Medical History / Comment(s): Heart problems, . Mother Additional Family Medical History / Comment(s): Mother of aortic aneurysm rupture at age 55 yrs. Medications and Allergies Home Medications Medication Instructions Recorded Confirmed Type Aspirin [Adult Low Dose Aspirin EC] 81 mg PO DAILY 11/04/23 04/20/24 History Insulin NPH Hum/Reg Insulin Hm 20 unit SQ AC-BRKFST 11/04/23 04/26/24 History [NovoLIN 70-30 100 Unit/ml Vial] Gabapentin 600 mg PO BID #60 tab 11/09/23 04/26/24 Rx Insulin NPH Hum/Reg Insulin Hm 10 unit SQ AC-LUNCH 12/10/23 04/26/24 History [NovoLIN 70-30 100 Unit/ml Vial] Zolpidem [Ambien] 10 mg PO HS PRN 12/10/23 04/26/24 History Biotin (Unknown Dose) 1 tab PO DAILY 04/20/24 04/26/24 History Cyclobenzaprine [Flexeril] 10 mg PO TID PRN 04/20/24 04/26/24 History Allergies Allergy/AdvReac Type Severity Reaction Status Date / Time No Known Allergies Allergy Verified 04/26/24 06:16 Physical Examination Osteopathic Statement: *. No significant issues noted on an osteopathic structural exam other than those noted in the History and Physical/Consult.
[2024-04-26 06:53] LABS: Glucose,Whole Blood 121 mg/dL (70-110)
[2024-04-26 06:58] LABS: HCT 34.8 % (34.0-46.0); HGB 11.6 gm/dL (11.4-16.0); MCH 30.7 pg (25.0-35.0); MCHC 33.3 g/dL (31.0-37.0); MCV 92.3 fL (80.0-100.0); Platelet Count 130 k/uL (150-450); RBC 3.76 m/uL (3.80-5.40); RDW 13.3 % (11.5-15.5); WBC 4.1 k/uL (3.8-10.6)
[2024-04-26] MEDS: LACTATED RINGERS 1,000 ML IV SCH (06:58)
[2024-04-26] MEDS: ONDANSETRON 4 MG/2 ML VIAL IVP ONE (06:59)
[2024-04-26] MEDS: MIDAZOLAM 2 MG/2 ML VIAL IV ONE (07:00)
[2024-04-26] MEDS ORDERED: HYDROmorphone 0.5 MG/0.5 ML SYRINGE IVP PRN (07:00)
[2024-04-26] MEDS ORDERED: LIDOCAINE 1% INJ 10MG/ML (20 ML MDV) ONE (07:21)
[2024-04-26] MEDS ORDERED: GLYCOPYRROLATE 0.2 MG/ML 2 ML VIAL ONE (07:21)
[2024-04-26] MEDS ORDERED: fentaNYL (PF) 50 MCG/ML 2 ML AMP ONE (07:21)
[2024-04-26] MEDS ORDERED: SUGAMMADEX SODIUM 100 MG/ML SYR IV ONE (07:21)
[2024-04-26] MEDS ORDERED: SUCCINYLCHOLINE CHLORIDE 200 MG/10 ML VIAL IV ONE (07:21)
[2024-04-26] MEDS ORDERED: MIDAZOLAM 2 MG/2 ML VIAL ONE (07:21)
[2024-04-26] MEDS ORDERED: TRANEXAMIC 1,000 MG/100ML-NACL PREMIX BAG ONE (07:21)
[2024-04-26] MEDS ORDERED: ROCURONIUM 10 MG/ML (5 ML VIAL) IV ONE (07:21)
[2024-04-26] MEDS ORDERED: NEOSTIGMINE 1 MG/ML 10 ML VIAL ONE (07:21)
[2024-04-26] MEDS ORDERED: PROPOFOL 10 MG/ML 20 ML VIAL IV ONE (07:21)
[2024-04-26] MEDS: LIDOCAINE 2%-EPI 1:100,000 20 ML VIAL SQ ONE (07:55)
[2024-04-26] MEDS: BUPIVACAINE (PF) 0.5% 30 ML VIAL SQ ONE (07:57)
--- NOTE | 2024-04-26 08:23 | P.OP ---
Date of Procedure: 04/26/24 Preoperative Diagnosis: 1. NONFUNCTIONAL SPINAL STIMULATOR 2. IRRITATING HARDWARE LUMBAR SPINE Postoperative Diagnosis: 1. NONFUNCTIONAL SPINAL STIMULATOR 2. IRRITATING HARDWARE LUMBAR SPINE Procedure(s) Performed: 1. REMOVAL OF SPINAL CORD STIMULATOR LEADS AND BATTERY PACK WITH LAMINCETOMY Anesthesia: GETA Surgeon: Luc Lr Physician Liaison #1: Riki West (WAS PRESENT AND ASSISTED WITH ALL ASPECTS OF THE CASE FROM POSITION TO DRESSING PLACEMENT) Estimated Blood Loss (ml): 5 IV fluids (ml): 500 Urine output (ml): 0 Pathology: none sent Condition: stable Disposition: PACU Description of Procedure: OPERATIVE REPORT INDICATIONS FOR PROCEDURE: Patient is a 68-year-old female with a history of cervical spine surgery and a non-functional spinal cord stimulator. The stimulator no longer provides therapeutic benefit, and the patient has requested removal of the device after April 11, 2024. Removal is indicated to prevent potential complications from retained non-functional hardware and to eliminate the risk of device migration or component failure. DATE: 04/26/2024 PREOPERATIVE DIAGNOSIS: Non-functional spinal cord stimulator POSTOPERATIVE DIAGNOSIS: Same PROCEDURE PERFORMED: Removal of spinal cord stimulator system ([employer] XR [id number], S/N [id number]) including battery pack and 8-lead array SURGEON: Luc Lr DO ANESTHESIA: General COMPLICATIONS: None ESTIMATED BLOOD LOSS: Minimal DESCRIPTION OF PROCEDURE: After obtaining informed consent and marking the surgical site, the patient was taken to the operating room and underwent successful induction of general anesthesia. The patient was positioned prone on the operating table with appropriate padding of all pressure points. Xray was used to visualize the lead array and battery pack. The previous inci salome site was marked, prepped, and draped in sterile fashion. Local anesthetic was administered. The previous incision was opened sharply, and dissection was carried down through subcutaneous tissues. The stimulator pocket was identified, and the battery pack was carefully dissected free from surrounding tissues. The connection between the battery and leads was identified and disconnected. After removing the battery pack, attention was turned to the lead array. The eight leads were carefully traced and dissected free from surrounding fibrotic tissue and laminectomy done to remove safely. All leads were removed completely and intact. Xray confirmed removal. The wound was copiously irrigated with antibiotic solution. Meticulous hemostasis was achieved. The wound was closed in layers using absorbable sutures for deep tissues and 2-0 nylon sutures for skin closure. A sterile dressing was applied. All counts were correct at the end of the procedure. The patient tolerated the procedure well and was transferred to PACU in stable condition. DISPOSITION: To PACU, stable. Plan for discharge home when meeting standard criteria: awake, alert, stable vital signs, pain controlled, and safe for self- care. POSTOPERATIVE INSTRUCTIONS: - Keep dressing clean and dry for 48 hours - May shower after 48 hours - No soaking in tub or pool for 6 weeks - Follow up in office in 2 weeks for suture removal - Resume preoperative medications as directed - Call office for fever, excessive drainage, increased pain, or other concerns
--- NOTE | 2024-04-26 08:23 | FL ---
EXAMINATION TYPE: FL guidance operating room, XR lumbar spine 2 or 3V DATE OF EXAM: 04/26/2024 8:19 AM COMPARISON: Pre Operative Images if available both CT/MRI or plain film CLINICAL INDICATION: Female, 68 years old with history of SPINE STIMULATOR REMOVAL I D IN OR; TECHNIQUE: FL guidance operating room, XR lumbar spine 2 or 3V, multiple fluoroscopic images provided for procedure. Total fluoroscopy time: 10 seconds Total submitted images to PACS: 5 DAP: 5.2160 mGym2 Gycm2 uGym2 cGycm2 or equivalent. FINDINGS: Fluoroscopic images during procedure spine stimulator leads projecting over the spine. Hardware appea rs intact. No immediate complication identified. IMPRESSION: 1. No evidence for intraoperative complication. 2. Please see the operative/procedural note for further details. [facility], , 04/26/2024 8:21 AM
[2024-04-26 08:36] VITALS: TEMP 97
[2024-04-26 10:17] VITALS: BP 168/79; PULSE 78; RESP 18
== END 2024-04-26 10:19 | disposition home or self-care (01) ==
LOC: OR 05:43
PROVIDERS: ATTEND Orthopaedic Surgery
DX: T85.192A Other mechanical complication of implanted electronic neurostimulator of spinal cord electrode (lead), initial encounter (principal); I26.99 Other pulmonary embolism without acute cor pulmonale; I10 Essential (primary) hypertension; E11.9 Type 2 diabetes mellitus without complications; G96.00 Cerebrospinal fluid leak, unspecified; M19.90 Unspecified osteoarthritis, unspecified site; M79.7 Fibromyalgia; M54.9 Dorsalgia, unspecified; Z98.51 Tubal ligation status; Z01.818 Encounter for other preprocedural examination; Z90.49 Acquired absence of other specified parts of digestive tract; Z87.891 Personal history of nicotine dependence; Z80.3 Family history of malignant neoplasm of breast; Z83.3 Family history of diabetes mellitus; Z79.899 Other long term (current) drug therapy
CPT/HCPCS: 85027; 72100; 63688; C1762; J2250; J0330; J2710; J0690; J2405; J2003; J3010; J2704; J0665; J1596

== ENCOUNTER → 2024-07-26 | Outpatient (CLI) | payer MEDICARE ==
--- NOTE | 2024-07-26 15:27 | MR ---
EXAMINATION TYPE: MR lumbar spine wo con DATE OF EXAM: 07/26/2024 1:28 PM COMPARISON: CT 10/29/2020 CLINICAL INDICATION: Female, 69 years old with history of m47.26 Other spondylosis with radiculopathy , lumbar region, Low back pain that radiates down both legs. TECHNIQUE: Multiplanar, multisequence images of the lumbar spine were acquired without IV contrast. FINDINGS: Vertebral body heights are preserved and alignment is maintained. Mild multilevel degenerative disc disease with desiccated and bulging discs. More moderate degenerati ve disc disease L3-L4 with fatty Modic type II endplate change here. Edematous Modic type I endplate change towards the left at L5-S1. There is a small posterior annular fissure at L4-L5. Moderate hypertrophic facet arthropathy mid to lower lumbar spine especially towards the left. Conus medullaris is normal. No suspicious bone marrow replacement. Posterior disc bulges impress on the ventral thecal sac at multiple levels. Overall mild spinal canal stenosis at L3/L4. No large focal disc herniation or significant spinal canal stenosis. On the right, changes resulting in moderate neural foraminal stenosis at L3-L4, cbef-ot-lvlmwgxa at L 4-L5, and mild additional levels. On the left, changes result in adzb-id-mhmlmlit neural foraminal stenosis at L3-L4 and mild at L4-L5 and L5-S1. Large cyst of the right kidney measuring 5.5 cm. There is also a 2.8 cm nodule of the left adrenal gland, unchanged from the patient's 10/29/2020 CT moe ggesting a benign adrenal adenoma. IMPRESSION: 1. Jovv-dz-pyoskgue multilevel degenerative disc disease, greatest at L3-L4 with disc bulge contribut e to mild narrowing of the spinal canal. There is some fatty Modic type II endplate change here. 2. Small posterior annular fissure at L4/L5. Also, some associated edematous Modic type I endplate ch anges with a left L5-S1. 3. No large focal disc herniation or significant spinal canal stenosis. 4. Along with hypertrophic facet arthropathy, changes result in Mild to moderate neuroforaminal stenoses, greatest on the right at L3-L4. [facility], Workstation: [employer], 07/26/2024 3:25 PM
== END | disposition home or self-care (01) ==
LOC: RADMRIMAIN 12:50
PROVIDERS: ATTEND Orthopaedic Surgery
DX: M47.26 Other spondylosis with radiculopathy, lumbar region (principal); M48.061 Spinal stenosis, lumbar region without neurogenic claudication; M99.73 Connective tissue and disc stenosis of intervertebral foramina of lumbar region; M51.16 Intervertebral disc disorders with radiculopathy, lumbar region
CPT/HCPCS: 72148

== ENCOUNTER → 2024-09-26 | Outpatient (CLI) | payer MEDICARE ==
[2024-09-26 08:59] VITALS: BP 154/83; PULSE 75; RESP 18
--- NOTE | 2024-09-26 15:36 | P.PAINPG ---
PQRS Measure Charge Sheet Comment: HISTORY OF PRESENT ILLNESS: A 69 yr old female as a referral from Dr Lr presents today w severe and chronic LBP > 1 yr secondary to radiculopathy, spondylosis and facet arthropathy without myelopathy for evaluation. Pt states pain level is provoked at 4-6 /10 in intensity, constant, localized in the lumbar, predominantly axial, tingly/ crampy in character w occasional shooting pain towards the back of the LEs. Pain is provoked by lifting, bending. Pain is alleviated by PT x 6 wks which ended in Apr 2024, physician guided home exercises 4-5 times weekly since Apr 2024, medications, heat, manual massage, repositioning and rest . Oswestry axial pain score at 20. PMH: OA NIDDM II, Fibromyalgia, HTN, Vitamin D Deficiency PSH: Non functional SCS removal (05/05), Cervical Fusion, Cervical Revision w Hardware, Cholecystectomy, Orthopedic Surgery, Tubal Ligation, Attempted Tubal Ligation Reversal, Colonoscopy SH: Former tobacco user, No ETOH abuse, No illicit drug use FH: Sis- Renal & Thyroid CA. Sis- Breast CA. Fa- DM Mo- AAA at age 57 All: See list Medications include Aleve, Celebrex, Naproxen, ASA REVIEW OF ORGAN SYSTEMS: CONSTITUTIONAL: No fevers or chills. No recent weight loss. NEUROLOGICAL: + numbness and tingling along the distal extremities. No seizure disorders or headaches. MUSCULOSKELETAL: + pain PSYCHIATRIC: Denies current depression or suicidal thoughts. Physical Examinations : Constitutional : Cooperative , not in acute distress . Neurologic : Cranial nerve II to XII intact. No focal neurological deficits. Psychiatric : alert & oriented x 3. Matching mood & appropriate affect. Judgment & insight intact. Musculoskeletal : Cervical Spine Motor strength in the deltoid and biceps: Normal right side. Normal Left side Motor strength biceps and the wrist extensors: Normal right side . Normal left side Motor strength in the triceps muscle: Normal right side. Normal left side Deep tendon reflexes: Normal at the biceps. Normal at Brachioradialis. Normal at triceps Vertebral body tenderness to deep palpation over Cervical facet loading test: positive bilaterally Spurling test: positive bilaterally Neck distraction test: positive bilaterally Raman sign: positive bilaterally Lumbar spine Motor strength lower extremities ,thigh and legs 5/5 Right side , 5/5 Left side Deep tendon reflexes : Normal Knee Jerk. Normal Ankle Jerk Vertebral body tenderness over Downey Test positive Lumbar facet Loading Test: positive Right / positive Left L3-L4 Range of motion of the lumbar spine Flexion 30 degrees, extension 10 degrees Straight Leg Raise test: Left/ Right positive at degrees Olga test: positive right / positive left. Severe tenderness over the Sacroiliac joint on the Right / Left sides Gaenslen test: positive bilaterally Seated flexion test: positive bilaterally. Sacral spine : Severe tenderness over the Sacroiliac joint: right side / left side Range of motion: Flexion of the lumbar spine <60 degrees Range of motion: Extension of the lumbar spine <20 degrees Gaenslen's Test positive Olga test: positive right side / left side Thigh Thrust Test Sacral Thrust Test Imaging: MRI non contrast lumbar spine from 07/26/24 reviewed Assessment/ Plan : Lumbar radiculopathy, facet arthropathy Recommendation of MIGUEL A MONTES DE OCA L3-L4 #1. Risks, benefits of procedure discussed and patient verbalized understanding. Admits to anti- coagulant use or medical history of diabetes. Protocol for discontinuation/ continuation of medications noam procedure discussed. Minimal anesthesia provided, if clinically indicated, consisting of Versed and Fentanyl. All questions answered. I have spent greater than 30 minutes on patient care today. Dr Bloom was available by phone for the evaluation of this patient. The time was used to review the medical records including relevant urine studies and Prescription history (MAPs), review of the available imaging, evaluation and examination of the patient, coordination of care with the medical staff and if applicable referring physicians, as well as creation of the medical record PQRS Narrative: Smoking Status Former smoker Home Medications: Ambulatory Orders Aspirin [Adult Low Dose Aspirin EC] 81 mg PO DAILY 11/04/23 Insulin NPH Hum/Reg Insulin Hm [NovoLIN 70-30 100 Unit/ml Vial] 20 unit SQ AC- BRKFST 11/04/23 Gabapentin 600 mg PO BID #60 tab 11/09/23 Insulin NPH Hum/Reg Insulin Hm [NovoLIN 70-30 100 Unit/ml Vial] 10 unit SQ AC- LUNCH 12/10/23 Zolpidem [Ambien] 10 mg PO HS PRN 12/10/23 Biotin (Unknown Dose) 1 tab PO DAILY 04/20/24 Cyclobenzaprine [Flexeril] 10 mg PO TID PRN 04/20/24 HYDROcodone/APAP 7.5-325MG [[place] 7.5-325] 1 tab PO Q6HR PRN #28 tab 04/26/24 Sennosides/Docusate Sodium [Senna Plus 8.6-50 mg Softgel] 1 each PO DAILY #20 capsule 04/26/24 cefaDROXiL [Duricef] 500 mg PO Q12HR 5 Days #10 cap 04/26/24 Controlled Substance Measures - Controlled Substance Measures Is patient prescribed a controlled substance at discharge?: No
== END ==
LOC: PNWHC3 07:58
PROVIDERS: ATTEND Specialist
DX: M47.26 Other spondylosis with radiculopathy, lumbar region (principal); M47.816 Spondylosis without myelopathy or radiculopathy, lumbar region; Z87.891 Personal history of nicotine dependence
CPT/HCPCS: 99202

== ENCOUNTER → 2024-09-26 | Outpatient (CLI) | payer MEDICARE ==
--- NOTE | 2024-09-26 08:13 | BD ---
EXAMINATION TYPE: Axial Bone Density DATE OF EXAM: 09/26/2024 CLINICAL HISTORY: 69 years old Female. ICD-10 CODE: M81.0 OSTEOPOROSIS , Additional History: Height: 68.9 Weight: 208 FRAX RISK QUESTIONS: History of Fracture in Adulthood: yes Secondary Osteoporosis: yes 3. Menopause before 45: yes, at 47 RISK FACTORS height loss HISTORY OF: hx of rib fxs Surgery to Spine no, only stimulator in and out. MEDICATIONS: vit d, monjaro for diabetes, insulin prn, EXAM MEASUREMENTS: Bone mineral densitometry was performed using the [employer] System. Bone mineral density as measured about the Lumbar spine is: ----- L1-L4(G/cm2): 1.142 T Score Values are as follows: ----- L1: -1.4 ----- L2: -1.0 ----- L3: 0.8 ----- L4: -0.2 ----- L1-L4: -0.3 Z Score Values are as follows: ----- L1: -0.8 ----- L2: -0.3 ----- L3: 1.4 ----- L4: 0.5 ----- L1-L4: 0.3 Bone mineral density is her first DEXXA scan, baseline study. Bone mineral density about the R hip (g/cm2): 0.879 Bone mineral density about the L hip (g/cm2): 0.877 T Score values are as follows: -----R Neck: -1.6 -----L Neck: -2.2 -----R Total: -1.0 -----L Total: -1.0 Z Score values are as follows: -----R Neck: -0.7 -----L Neck: -1.2 -----R Total: -0.4 -----L Total: -0.4 Bone mineral density is a baseline study for her. FRAX%s: The graph provided illustrates a 18.9% chance for a major osteoporotic fx and a 3.4% chance f or the hips probability for fx in 10 years time. IMPRESSION: Osteopenia (T Score between -2.5 and -1). There is slightly increased risk of fracture and the patient may be considered for treatment. Re-Screen 2-5 years. NOTE: T-SCORE=SD OF THE YOUNG ADULT MEAN. [facility], , 09/26/2024 8:11 AM
--- NOTE | 2024-09-26 08:15 | MM ---
Reason for Exam: Screening (asymptomatic). Last mammogram was performed 22 year(s) and 8 month(s) ago. Patient History: Menarche at age 14. First Full-Term at age 20. Postmenopausal. Patient has history of breast feeding. Core Biopsy on the Left side. 02/26/2002, Benign Stereotactic Core Biopsy on the left side. Maternal grandmother had breast cancer at or over age 50. Risk Values: Alexandra 5 year model risk: 1.8%. NCI Lifetime model risk: 6.3%. Prior Study Comparison: 01/25/2002 Bilateral Screening Mammogram, [facility]. 02/07/2002 Left Special View Mammogram, [facility]. Tissue Density: There are scattered areas of fibroglandular density. Findings: Analyzed By CAD. Microclip left breast from prior biopsy. No suspicious microcalcifications, significant mass, or other discrete abnormality is seen. Overall Assessment: Benign, BI-RAD 2 Management: Screening Mammogram of both breasts in 1 year. Patient should continue monthly self-breast exams. A clinical breast exam by your physician is recommended on an annual basis. This exam should not preclude additional follow-up of suspicious palpable abnormalities. Note on Alexandra scores and lifetime risk: 1. A Alexandra score greater than 3% is considered moderate risk. If this is the case, consider specialist referral to assess eligibility for a risk reducing agent. 2. If overall lifetime risk for the development of breast cancer is 20% or higher, the patient may qualify for future screening with alternating mammogram and breast MRI. [facility], , 09/26/2024 8:13 AM. Electronically signed and approved by: Gladis Sandoval M.D. Radiologist
== END | disposition home or self-care (01) ==
LOC: RADMAMWWP 07:16
PROVIDERS: ATTEND Family Medicine
DX: Z12.31 Encounter for screening mammogram for malignant neoplasm of breast (principal); R92.323 Mammographic fibroglandular density, bilateral breasts; M81.0 Age-related osteoporosis without current pathological fracture; M85.89 Other specified disorders of bone density and structure, multiple sites; Z78.0 Asymptomatic menopausal state; Z80.3 Family history of malignant neoplasm of breast
CPT/HCPCS: 77063; 77067; 77080

== ENCOUNTER 2024-11-08 06:49 | Day surgery (SDC) | payer MEDICARE ==
[2024-11-05 09:07] VITALS: BMI 30.7
[2024-11-08] MEDS: IV FLUID CONTINUATION 1,000 ML IV ONE ×2 (07:30→08:48)
[2024-11-08 07:52] LABS: Glucose,Whole Blood 177 mg/dL (70-110)
[2024-11-08 07:53] VITALS: TEMP 97.6
[2024-11-08] MEDS: LACTATED RINGERS 1,000 ML IV SCH (07:56)
[2024-11-08] MEDS ORDERED: ROPIVACAINE 5 MG/ML 30 ML VIAL ONE (08:27)
[2024-11-08] MEDS ORDERED: fentaNYL (PF) 50 MCG/ML 2 ML AMP ONE (08:27)
[2024-11-08] MEDS ORDERED: MIDAZOLAM 2 MG/2 ML VIAL ONE (08:27)
--- NOTE | 2024-11-08 08:45 | P.PCN ---
Date of Procedure: 11/08/24 Procedure(s) Performed: PREOPERATIVE DIAGNOSIS : 1- Lumbar spondylosis with Facet Arthropathy without myelopathy . 2- Lumber degenerative disc disease POSTOPERATIVE DIAGNOSIS: 1- Lumbar spondylosis with Facet Arthropathy without myelopathy . 2- Lumber degenerative disc disease PROCEDURE: Diagnostic bilateral L2, L3 medial branch block under fluoroscopy guidance(fluoroscopy images available in the radiology Department ) ( To target the facet joint between Bilateral L3-4)#1st ANESTHESIA: moderate sedation with intravenous Versed 2 mg and Fentanyl 50 mcg.(Sedation start time 08:27 ,end time 0829) EBL: Minimal COMPLICATION: None PROCEDURE INDICATION: Chronic low back pain secondary to Facet arthropathy unresponsive to conservative treatment. PROCEDURE DESCRIPTION: the patient was seen and identified in the preop holding area , risks and benefits and possible complications of the procedure and alternative were discussed with the patient, and the patient agreed to proceed with the procedure and signed the consent and vital signs monitored during the procedure and fluoroscopy was used to maximize the benefit and accuracy of the needle placement, and sedation was given to decrease patient anxiety, patient was taken to the procedure room and placed in prone position vital signs monitored in the back prepped with chlorhexidine X3 then under strict sterile technique using a right oblique fluoroscopy ,the junction of the transverse process and the superior articulating process of the right L2 , L3 vertebra which corresponding to the fluoroscopy image of the eye of the Nathan dog on the block side for the medial branches and subsequently , after local infiltration of skin and subcu tissuies with Ropivacaine 0.5 % , one mL at each level ,then 23-gauge Quincke-type needles , 2 needle was used , each one of them placed at the junction of the base of the transverse process and the superior articular process at the appropriate level, and the needle was advanced until the periosteum contacted, needle placement confirmed with AP oblique and lateral view and after appropriate needle placement confirmed, and after negative aspiration for heme and CSF and there was no paresthesia 1 mL of Ropiv acaine 0.5% , then half mL injected at each level after negative aspiration the needle subsequently removed and the same procedure repeated for the left side at left side at L2, L3 levels. At the end of the procedure and the needles removed and a bandage applied after the skin was cleaned the cleaning solution patient taken to recovery room in stable condition and monitors in the recovery room for 20-30 minutes and discharged home in stable condition after discharge criteria met and patient will follow up with the pain clinic in 2-4 weeks
[2024-11-08 09:12] VITALS: BP 149/65; PULSE 72; RESP 18
--- NOTE | 2024-11-08 09:16 | FL ---
Fluoroscopy History: FACET BLOCK MEGGAN LUM FLUORO TIME: 17SEC DAP: [id number] BILATERL LUMBAR FACET BLOCK [facility], , 11/08/2024 9:14 AM
== END 2024-11-08 09:36 | disposition home or self-care (01) ==
LOC: ORPAIN 06:49
PROVIDERS: ATTEND Specialist
DX: M47.816 Spondylosis without myelopathy or radiculopathy, lumbar region (principal); M51.360 Other intervertebral disc degeneration, lumbar region with discogenic back pain only
CPT/HCPCS: 64493; J2250; J3010; J2795; 99152